=== PATIENT | male | born 1965 | race Caucasian/White ===

== ENCOUNTER 2017-12-20 17:37 | Inpatient (IN) | payer SELFPAY ==
[2017-12-20] MEDS ORDERED: Fentanyl 100 MCG/2 ML VIAL ONE (18:05)
[2017-12-20] MEDS ORDERED: Clindamycin/D5W 900 mg/50 ml Premix Bag ONE (18:05)
[2017-12-20] MEDS ORDERED: Vancomycin HCl 1.25 GM in Sodium Chloride 0.9% 250 ML 250 ML IVPB ONE (18:15)
[2017-12-20 18:26] LABS: CRP (Inflammatory) 4.22 mg/dL (= or < 0.5)
[2017-12-20] MEDS ORDERED: Adacel (T-DAP) 0.5 ML VIAL ONE (18:43)
[2017-12-20] MEDS ORDERED: Ondansetron ODT 4 MG TAB SL PRN (19:57)
[2017-12-20] MEDS ORDERED: Ondansetron HCl/PF 4 MG/2 ML Vial IVP PRN ×2 (19:57→20:13)
[2017-12-20] MEDS ORDERED: Acetaminophen 325 MG TAB PO PRN ×2 (19:57→20:13)
[2017-12-20] MEDS ORDERED: Piperacillin/Tazobactam 3.375 GM in Sodium Chloride 0.9% 100 ML IVPB SCH (20:00)
[2017-12-20] MEDS ORDERED: HumaLOG 300 UNITS/3 ML VIAL SC PRN (20:13)
[2017-12-20] MEDS ORDERED: Nitroglycerin 0.4 MG TAB (25 Tab Bottle) SL PRN (20:13)
[2017-12-20] MEDS ORDERED: traMADol HCl 50 MG TAB PO PRN (20:13)
[2017-12-20] MEDS ORDERED: Lorazepam 1 MG TAB PO PRN (20:13)
[2017-12-20] MEDS ORDERED: Bisacodyl 5 MG TAB PO PRN ×2 (20:13)
[2017-12-20] MEDS ORDERED: Diabetic Tussin 200 MG/10 ML UDCUP PO PRN (20:13)
[2017-12-20] MEDS ORDERED: Dextrose 5% in Water 1,000 ML IV PRN (20:13)
[2017-12-20] MEDS ORDERED: Benzonatate 100 MG CAP PO PRN (20:13)
[2017-12-20] MEDS ORDERED: Mag-Al 1200 mg/1200 mg/30 ML UDCUP PO PRN (20:13)
[2017-12-20] MEDS ORDERED: Loratadine 10 MG TAB PO PRN (20:13)
[2017-12-20] MEDS ORDERED: hydrALAZINE 20 MG/ML VIAL SLOW IVP PRN (20:13)
[2017-12-20] MEDS ORDERED: HYDROcodone/Acetaminophen 5/325 mg Tablet PO PRN (20:13)
[2017-12-20] MEDS ORDERED: Calcium Carbonate 500 MG ChewTAB PO PRN (20:13)
[2017-12-20] MEDS ORDERED: cloNIDine 0.1 MG TAB PO PRN (20:13)
[2017-12-20] MEDS ORDERED: Senokot 8.6 MG TAB PO PRN ×2 (20:13)
[2017-12-20] MEDS ORDERED: Dextrose 50% Abboject 50 ML SYRINGE SLOW IVP PRN (20:13)
[2017-12-20] MEDS ORDERED: VANCOMYCIN IV IVPB PRN (20:36)
[2017-12-20 20:40] LABS: Hemoglobin A1c 10.2 % (4.0-6.0)
[2017-12-20] MEDS ORDERED: Vancomycin HCl 1 GM in Premix Bag 1 BAG IVPB SCH (21:00)
[2017-12-20 21:09] VITALS: BMI 26.6
[2017-12-20] MEDS: Sodium Chloride 0.9% 1,000 ML IV SCH (21:15)
[2017-12-20] MEDS: Famotidine 20 MG TAB PO SCH (21:15)
[2017-12-20] MEDS: HYDROcodone/Acetaminophen 5/325 mg Tablet PO PRN (21:16)
[2017-12-20] MEDS: HumaLOG 300 UNITS/3 ML VIAL SC PRN (21:17)
--- NOTE | 2017-12-20 21:38 | HP ---
DATE OF ADMISSION: 12/20/2017 PRIMARY CARE PHYSICIAN: None. CHIEF COMPLAINT: Worsening infection of the right toe. HISTORY OF PRESENTING ILLNESS: Mr. Ibarra is a very pleasant 52-year-old male who was recently diagn osed with diabetes about 4-5 weeks ago and is on metformin, presented to the emergency room with abov e-mentioned complaint. History is mainly obtained by the patient himself and electronic medical aleksandr rds have been reviewed. Case has been discussed with the admitting ER physician, Dr. Strickland. Fred reports that about 5 weeks ago, he started to notice a small ulcer on his right foot on the si de and presented to an emergency room or Urgent Care in [place] where he used to recite. There, he was told that this looks like a diabetic ulcer and his blood sugars were checked and were found to be very high. He was diagnosed with new diagnosis of diabetes and was given prescription of metformin and Augmentin and was discharged. He did take the antibiotics and his wound healed up to some extent . Meanwhile, he moved from [place] to [facility] to enroll himself into a drug reha bilitation program of his friend in [place]. Over there, he ran out of metformin about 2 weeks ago. Meanwhile, he has been doing his local wound care himself by using a razor knife which he steri lizes with alcohol. He has been trying to scrape of the wound, but it instead got worse and he start ed to have significant amount of pain and discharge with associated swelling and erythema. This made him present to the [place] [facility]. In the [place] [facility], he was somewhat tachycardic with a heart rate of 113 and his blood pressure w as 148/81. He was found to have significant ulceration of his right big toe anteriorly and on the si de with streaking extending up his foot and his leg. He was given Zosyn and was transferred to our f acility. Here, he got vancomycin and clindamycin as well and an x-ray of the foot was done. The x-r ay showed soft tissue swelling without evidence of bone destruction. He is now being admitted for di abetic foot infection. His blood sugar in our facility is elevated to 339. His C-reactive protein i s 4.22, but his ESR is 48. PAST MEDICAL HISTORY: Diabetes mellitus, new diagnosis. 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 PSYCHIATRIC HISTORY: None. SOCIAL HISTORY: He is currently in a drug rehab program for cocaine and methamphetamine. He has use d it up about 7-1/2 weeks ago. He is a former tobacco user who used to chew tobacco. FAMILY HISTORY: Significant for diabetes in his mother. Both of his parents had cancer. Mother had breast cancer and his father young of bone cancer. Denies any history of coronary artery disea se or stroke in his family. ALLERGIES: SULFONAMIDE. MEDICATIONS: He used to take metformin until he ran out 2 weeks ago. REVIEW OF SYSTEMS: A 12 point review of systems was done and it is negative except for those mention ed in the history and physical. The following complete review of systems was negative, unless otherw ise mentioned in the HPI or below: Constitutional: Weight loss or gain, ability to conduct usual ac tivities. Skin: Rash, itching. Eyes: Double vision, pain. ENT/Mouth: Nose bleeding, neck stiffn ess, pain, tenderness. Cardiovascular: Palpitations, dyspnea on exertion, orthopnea. Respiratory: Shortness of breath, wheezing, cough, hemoptysis, fever or night sweats. Gastrointestinal: Poor ap petite, abdominal pain, heartburn, nausea, vomiting, constipation, or diarrhea. Genitourinary: Urge ncy, frequency, dysuria, nocturia. Musculoskeletal: Pain, swelling. Neurologic/Psychiatric: Anxie ty, depression. Allergy/Immunologic: Skin rash, bleeding tendency. LABORATORY DATA: Reviewed from those done in [facility]. His CBC shows WBCs 12.1, hemoglobin 1 1, platelets 422, neutrophils 76.9%. Serum chemistry shows sodium of 134 for a blood sugar of 339. CRP 4.22. Otherwise, serum chemistries are normal. Urinalysis shows glucosuria and trace blood. X- ray of the foot on the right by my evaluation shows soft tissue swelling in the right great toe witho ut any fracture or subluxation. PHYSICAL EXAMINATION: VITAL SIGNS: Upon presentation to the ER include blood pressure 148/81, pulse of 113, respirations 2 0, saturating 96% on room air, temperature 99.7. GENERAL: No acute distress, awake, alert, oriented x3, very pleasant. HEENT: Mucous membrane is moist and pink. No oropharyngeal exudate or erythema. Head is normocepha lic, atraumatic. Pupils are equal, reactive to light and accommodation. Extraocular movements are i ntact. NECK: Supple without any lymphadenopathy, JVD or bruit. CHEST: Clear to auscultation without any wheezing, rales or rhonchi. Rate and rhythm is regular wit hout any murmur, rubs or gallops. ABDOMEN: Soft, nontender, nondistended with positive bowel sounds. EXTREMITIES: Evaluation shows amputation of the left pointer finger. His lower extremity examinatio n shows significant amount of shallow ulceration involving the big toe on the right foot anteriorly a nd laterally with significant amount of purulent discharge. It is surrounded by streaking of erythem a and warmth extending up his foot lateral lead to his lower leg. His left lower extremity shows old injury to his big toe nail where he reports that his stepfather dropped a forklift by mistake. His toe is tender to palpation. SKIN: Erythematous above the right great toe, otherwise no rashes. NEUROLOGIC: Nonfocal. PSYCHIATRIC: Normal affect. He does appear somewhat anxious, but very pleasant. IMPRESSION AND PLAN: 1. Diabetic foot infection of the right foot. The patient will be continued on IV antibiotics with vancomycin and Zosyn. We will consult Wound care as well as General Surgery for more deeper incision and drainage. It does not seem that he has osteomyelitis at this time. We will obtain cultures at the time of wound care and send it to the lab. Blood cultures have been obtained in the emergency ro om. He will be n.p.o. after midnight in case General Surgery wants to do an incision and drainage. 2. Sepsis. The patient has elevated WBCs as well as elevated C-reactive protein and obvious infecti on of the toe. He will be treated with IV antibiotics and we will also start gentle IV fluids becaus e he will be n.p.o. after midnight for possible surgery in the morning. 3. Diet controlled diabetes mellitus. The patient has a new diagnosis of diabetes. He will be fatemeh faiza with insulin sliding scale while in the hospital and we will re-start his metformin. We will uriel ck a hemoglobin A1c and he will require PCP establishment at the time of his hospital discharge. Kenn itor his blood sugars a.c. and at bedtime for now. 4. History of drug abuse. The patient is currently in a drug rehab and would very much like to be t aken back to drug rehab after his hospitalization. 5. History of tobacco abuse, is abstinent for now. 6. Deep venous thrombosis and gastrointestinal prophylaxis. 7. Code status: FULL CODE. Discussed with the patient. DISPOSITION: Mr. Ibarra is currently being admitted for sepsis secondary to diabetic foot infection. Estimated length of stay is at least 2-3 midnights. Further management will depend upon his clinic al course.
[2017-12-21] MEDS: Piperacillin/Tazobactam 3.375 GM in Sodium Chloride 0.9% 100 ML IVPB SCH ×4 (00:18→15:43)
[2017-12-21] MEDS ORDERED: Clindamycin/D5W 900 MG in Premix Bag 1 BAG IVPB SCH (02:00)
[2017-12-21] MEDS: HYDROcodone/Acetaminophen 5/325 mg Tablet PO PRN ×4 (02:54→20:16)
[2017-12-21 04:48] LABS: #Basophils 0.1 thou/uL (0.0-0.2); #Eosinphils 0.1 thou/uL (0.0-0.7); #Lymphocytes 2.1 thou/uL (1.20-3.40); #Monocytes 0.6 thou/uL (0.11-0.59); #Neutrophils 4.2 thou/uL (1.40-6.50); %Basophils 0.9 % (0.0-1.0); %Lymphocytes 29.7 % (21.0-51.0); %Monocytes 8.6 % (0.0-10.0); %Neutrophils 58.8 % (42.0-75.0); Hemoglobin 9.5 g/dL (14.0-18.0); Mean Corpuscular HGB CONC 34.2 g/dL (32.0-36.0); Mean Corpuscular Hemoglobin 28.5 pg (27.0-31.0); Mean Corpuscular Volume 83.2 fl (80.0-94.0); Mean Platelet Volume 6.4 fL (7.4-10.4); Platelet Count 328 thou/uL (130-400); Red Blood Cell (RBC) Count 3.32 mill/uL (4.70-6.10); White Blood Cell (WBC) Count 7.2 thou/uL (4.8-10.8)
[2017-12-21 04:59] LABS: Anion Gap 9 mmol/L (10-20); BUN (Urea Nitrogen) 12 mg/dL (8.4-25.7); Calc. Creatinine Clearance 129 mL/min (70-130); Calcium 8.2 mg/dL (7.8-10.44); Carbon Dioxide 26 mmol/L (22-29); Chloride 106 mmol/L (98-107); Estimated GFR-MDRD Greater than 90; Glucose 303 mg/dL (70-105); Potassium 4.4 mmol/L (3.5-5.1); Sodium 137 mmol/L (136-145)
[2017-12-21] MEDS: Morphine 4 MG/ML VIAL SLOW IVP PRN ×5 (04:59→21:58)
[2017-12-21] MEDS: Vancomycin HCl 1.25 GM in Sodium Chloride 0.9% 250 ML 250 ML IVPB SCH ×2 (05:43→16:58)
[2017-12-21] MEDS: Enoxaparin Sodium 40 MG/0.4 ML SYRINGE SC SCH (07:20)
[2017-12-21] MEDS: Famotidine 20 MG TAB PO SCH ×2 (07:23→20:16)
[2017-12-21] MEDS: Saccharomyces boulardii 250 MG CAP PO SCH (07:24)
[2017-12-21] MEDS: Sodium Chloride 0.9% 1,000 ML IV SCH ×2 (07:26→20:18)
[2017-12-21] MEDS ORDERED: NPH, Human Insulin Isophane 300 UNIT/3 ML VIAL SC SCH (11:00)
--- NOTE | 2017-12-21 13:47 | CON ---
DATE OF CONSULTATION: 12/21/2017 CHIEF COMPLAINT: Right toe wound/infection. HISTORY OF PRESENT ILLNESS: Patient is a 52-year-old white male. He sustained an injury to his righ t great toe while he was working in [place]. He apparently went to an urgent care facility where he was initially diagnosed with diabetes. He was given a prescription for Augmentin and metformin at t hat time. Subsequently, he returned to home to where he lives [place] (near [place]). In some fa critical access hospital, he had begun using methamphetamine again, although he had been cleared from this for 4 years. He recently got admitted to a rehab facility in [place]. He presented to this hospital seconda ry to increasing problems related to his right great toe and left his drug rehabilitation program for this purpose. He did note he acknowledges having run out of his metformin 2 weeks ago and has not been on anything recently. He also tells me that he is the only one who has been caring for his toe. He had to cut s ome of the skin off parts of the toe. PAST MEDICAL HISTORY: Significant for diabetes mellitus. This is a new diagnosis and he has been on no medications for at least the last 2 weeks. His hemoglobin A1c here is 10.2 and his blood sugars have run between 303 and 370. PAST SURGICAL HISTORY: Amputation of left index finger from an accident about 13 years ago. CURRENT MEDICATIONS: None. ALLERGIES: SULFA. PERSONAL/SOCIAL HISTORY: He lives in [place]. He has had prior addiction issues with methamphetam ine. He is currently not employed secondary to his drug rehabilitation. PHYSICAL EXAMINATION: VITAL SIGNS: He is afebrile. He has been afebrile since admission. Pulse is 90, blood pressure is 138/80. GENERAL: He is a well-developed, well-nourished, pleasant white male resting in bed in no acute dist ress. He is alert and oriented x3. HEENT: Unremarkable. NECK: Supple, without mass or tenderness. LUNGS: Clear to auscultation throughout. CARDIAC: Regular rate and rhythm without murmur. ABDOMEN: Soft, nontender, nondistended. EXTREMITIES: He has easily palpable pedal pulses on his right foot. He has some mild edema and some very mild erythema of the foot. He has no ulcers or lesions anywhere on the foot except the great t oe. He has what appears to be an area of perhaps dry debrided area on the medial aspect. The entire dorsum of the toe from the base of the toe up to the nail is devitalized amorphous clearly necrotic tissue. It is white and necrotic, however. There is no foul smell or drainage. LABORATORY DATA: CBC reveals a hemoglobin of 9.5. White blood cell count of 7.2. Chemistry profile reveals normal electrolytes. Glucose elevated at 303. ASSESSMENT: Patient with a wound involving the dorsum of his right great toe. This is amorphous and devitalized tissue. PLAN: Sharp excisional debridement of this with continuation of wound care. He will need to avoid p utting this foot into a closed toe shoe until it is completely healed. This really does not appear t o be infected, but empiric antibiotics would not be harmful at this point. PROCEDURE: At his bedside, I sharply debrided (excised) with scissors all of the amorphous devitaliz ed tissue on the dorsum of the toe. There was no significant bleeding at all. I did not clearly dis sect out any tendons, but is close to the extensor tendons. There really was not much in the way of viable tissue underlying this. I will consult Wound Care at this time to initiate dressing changes o n this to see if this will heal with a course of supportive care.
[2017-12-21] MEDS: metFORMIN 500 MG TAB PO SCH (15:43)
[2017-12-21] MEDS: glipiZIDE 5 MG TAB PO SCH (15:43)
[2017-12-21] MEDS: NPH, Human Insulin Isophane 300 UNIT/3 ML VIAL SC SCH (20:57)
--- NOTE | 2017-12-21 23:24 | PDOC.PN ---
- Subjective Encounter Start Date: 12/21/17 Encounter Start Time: 14:00 Patient seen and examined for diabetic foot ulcer/uncontrolled DM2. No new complaints. No overnight events - Objective MAR Reviewed: Yes Vital Signs & Weight: Vital Signs (12 hours) Temp Pulse Resp BP BP Pulse Ox 12/21/17 20:00 98.1 F 90 20 145/81 H 98 12/21/17 16:28 97.8 F 88 16 130/74 97 Weight Weight 185 lb 4.8 oz I&O: 12/20/17 12/21/17 12/22/17 06:59 06:59 06:59 Intake Total 741 2700 Balance 741 2700 Result Diagrams: 12/21/17 04:06 12/21/17 04:06 Additional Labs: Accuchecks 12/21/17 12/21/17 12/21/17 20:55 16:25 11:20 POC Glucose 137 H 165 H 238 H 12/21/17 05:25 POC Glucose 318 H Phys Exam - Physical Examination Constitutional: NAD Respiratory: no wheezing, no rhonchi Cardiovascular: RRR, no rub Gastrointestinal: soft, non-tender, positive bowel sounds Musculoskeletal: no edema foot dressing + Neurological: moves all 4 limbs Dx/Plan (1) Diabetic foot infection Code(s): E11.628 - TYPE 2 DIABETES MELLITUS WITH OTHER SKIN COMPLICATIONS; L08.9 - LOCAL INFECTION OF THE SKIN AND SUBCUTANEOUS TISSUE, UNSP Status: Acute (2) Uncontrolled type 2 diabetes mellitus Code(s): E11.65 - TYPE 2 DIABETES MELLITUS WITH HYPERGLYCEMIA Status: Chronic (3) Polysubstance abuse Code(s): F19.10 - OTHER PSYCHOACTIVE SUBSTANCE ABUSE, UNCOMPLICATED Status: Chronic Comment: currently at Rehab (4) Chronic anemia Code(s): D64.9 - ANEMIA, UNSPECIFIED Status: Chronic - Plan continue antibiotics, DVT proph w/SCDs Cont wound care -: Add Glipizide/Metformin/Insulin with sliding scale -: Cont other meds as below Review of Systems - Review of Systems Cardiovascular: negative: chest pain, palpitations, orthopnea, paroxysmal nocturnal dyspnea, edema, light headedness, other Gastrointestinal: negative: Nausea, Vomiting, Abdominal Pain, Diarrhea, Constipation, Melena, Hematochezia, Other - Medications/Allergies Allergies/Adverse Reactions: Allergies Allergy/AdvReac Type Severity Reaction Status Date / Time Sulfa (Sulfonamide Allergy Verified 12/20/17 21:54 Antibiotics) Medications: Current Medications Acetaminophen (Tylenol) 650 mg PO Q4H PRN PRN Reason: Headache/Fever or Pain Hydrocodone Bitart/Acetaminophen (Hayes 5/325) 1 tab PO Q4H PRN PRN Reason: Moderate Pain (4-6) Hydrocodone Bitart/Acetaminophen (Hayes 5/325) 2 tab PO Q4H PRN PRN Reason: Severe Pain (7-10) Last Admin: 12/21/17 20:16 Dose: 2 tab Al Hydroxide/Mg Hydroxide (Maalox) 30 ml PO Q6H PRN PRN Reason: Heartburn or Indigestion Benzonatate (Tessalon) 100 mg PO Q4H PRN PRN Reason: Cough Bisacodyl (Dulcolax) 10 mg PO DAILYPRN PRN PRN Reason: Constipation Calcium Carbonate (Tums) 1,000 mg PO Q4H PRN PRN Reason: Heartburn or Indigestion Clonidine (Catapres) 0.1 mg PO Q4H PRN PRN Reason: Systolic BP > 160 Last Admin: 12/20/17 21:15 Dose: 0.1 mg Dextrose/Water (Dextrose 50%) 25 gm SLOW IVP PRN PRN PRN Reason: Hypoglycemia Enoxaparin Sodium (Lovenox) 40 mg SC 0900 [facility] Last Admin: 12/21/17 07:20 Dose: Not Given Famotidine (Pepcid) 20 mg PO BID [facility] Last Admin: 12/21/17 20:16 Dose: 20 mg Glipizide (Glucotrol) 5 mg PO BID-[facility] Last Admin: 12/21/17 15:43 Dose: 5 mg Glucagon (Glucagon) 1 mg IM PRN PRN PRN Reason: Hypoglycemia Guaifenesin (Robitussin Sf) 200 mg PO Q4H PRN PRN Reason: Cough Hydralazine HCl (Apresoline) 10 mg SLOW IVP Q4H PRN PRN Reason: Systolic BP > 170 Dextrose/Water (D5w) 1,000 mls @ 0 mls/hr IV .Q0M PRN; As Directed PRN Reason: Hypoglycemia Sodium Chloride (Normal Saline 0.9%) 1,000 mls @ 75 mls/hr IV .[id number] [facility] Last Admin: 12/21/17 20:18 Dose: 1,000 mls Piperacillin Sod/Tazobactam (Sod 3.375 gm/ Sodium Chloride) 100 mls @ 200 mls/ hr IVPB Q6HR [facility] Last Admin: 12/21/17 15:43 Dose: 100 mls Vancomycin HCl 1.25 gm/ Sodium (Chloride) 250 mls @ 166.667 mls/hr IVPB 0600, 1800 [facility] Last Admin: 12/21/17 16:58 Dose: 250 mls Insulin Human Lispro (Humalog) 0 units SC .MODERATE SLIDING SC PRN PRN Reason: Moderate Correctional Scale Insulin Human Lispro (Humalog) 0 units SC .BEDTIME SLIDING SC PRN PRN Reason: Bedtime Correctional Scale Last Admin: 12/20/17 21:17 Dose: 5 unit Insulin Human NPH (Humulin N) 10 unit SC BID [facility] Last Admin: 12/21/17 20:57 Dose: 10 unit Loratadine (Claritin) 10 mg PO DAILYPRN PRN PRN Reason: Sinus Symptoms Metformin HCl (Glucophage) 500 mg PO BID-[facility] Last Admin: 12/21/17 15:43 Dose: 500 mg Miscellaneous Medication (Pharmacy To Dose) 1 each IVPB PRN PRN PRN Reason: SSSI Morphine Sulfate (Morphine) 2 mg SLOW IVP Q4H PRN PRN Reason: Severe Pain (7-10) Last Admin: 12/21/17 21:58 Dose: 2 mg Nitroglycerin (Nitrostat) 0.4 mg SL Q5MIN PRN PRN Reason: Chest Pain Ondansetron HCl (Zofran) 4 mg IVP Q6H PRN PRN Reason: Nausea/Vomiting Saccharomyces Boulardii (Florastor) 250 mg PO DAILY [facility] Last Admin: 12/21/17 07:24 Dose: Not Given Senna (Senokot) 2 tab PO HSPRN PRN PRN Reason: Constipation Tramadol HCl (Ultram) 50 mg PO Q4H PRN PRN Reason: Moderate Pain (4-6) Last Admin: 12/21/17 15:46 Dose: 50 mg
[2017-12-22] MEDS: Piperacillin/Tazobactam 3.375 GM in Sodium Chloride 0.9% 100 ML IVPB SCH ×5 (00:21→23:58)
[2017-12-22] MEDS: HYDROcodone/Acetaminophen 5/325 mg Tablet PO PRN ×3 (02:07→21:41)
[2017-12-22 05:14] LABS: Vancomycin, Trough 9.5 ug/mL
[2017-12-22] MEDS: Vancomycin HCl 1.75 GM in Sodium Chloride 0.9% 500 ML IVPB SCH ×2 (06:26→18:34)
[2017-12-22] MEDS: Saccharomyces boulardii 250 MG CAP PO SCH (08:13)
[2017-12-22] MEDS: Famotidine 20 MG TAB PO SCH ×2 (08:13→20:15)
[2017-12-22] MEDS: glipiZIDE 5 MG TAB PO SCH ×2 (08:13→16:30)
[2017-12-22] MEDS: Enoxaparin Sodium 40 MG/0.4 ML SYRINGE SC SCH (08:13)
[2017-12-22] MEDS: metFORMIN 500 MG TAB PO SCH ×2 (08:14→16:30)
[2017-12-22] MEDS: NPH, Human Insulin Isophane 300 UNIT/3 ML VIAL SC SCH (08:15)
[2017-12-22] MEDS: Morphine 4 MG/ML VIAL SLOW IVP PRN ×2 (12:40→17:26)
--- NOTE | 2017-12-22 18:53 | PRG ---
DATE OF SERVICE: 12/22/2017 SUBJECTIVE: Mr. Ibarra is hospital day #3 in evaluation and treatment of his right great toe ulcer/i nfection. I debrided this ulcer yesterday and wound care perform dressing changes then. The patient has no complaints. He is afebrile. Vital signs are normal. Dressing is intact. LABORATORY DATA: There are no new labs. In summary, he is doing well with antibiotic treatment of his toe infection after debridement. I maureen l arrange with Wound Care Team to see his wound tomorrow. If this is making an appropriate progress, we will instruct him and wound care and we will arrange outpatient wound care, but I believe he will be stable for discharge then.
[2017-12-22] MEDS ORDERED: Ondansetron ODT 4 MG TAB PO PRN (20:55)
--- NOTE | 2017-12-22 22:49 | PDOC.PN ---
- Subjective Encounter Start Date: 12/22/17 Encounter Start Time: 11:00 Patient seen and examined for diabetic foot infection. No new complaints except Rt foot pain. No overnight events - Objective MAR Reviewed: Yes Vital Signs & Weight: Vital Signs (12 hours) Temp Pulse Resp BP Pulse Ox 12/22/17 20:19 98.6 F 94 18 133/88 12/22/17 11:10 98.2 F 88 20 172/98 H 95 Weight Admit Weight 185 lb 4.8 oz Weight 185 lb 4.8 oz I&O: 12/21/17 12/22/17 12/23/17 06:59 06:59 06:59 Intake Total 741 3840 720 Balance 741 3840 720 Result Diagrams: 12/23/17 03:52 12/23/17 03:52 Additional Labs: Accuchecks 12/22/17 12/22/17 12/22/17 20:35 16:35 11:15 POC Glucose 120 H 125 H 129 H 12/22/17 04:02 POC Glucose 123 H Phys Exam - Physical Examination Constitutional: NAD Respiratory: no wheezing, no rhonchi Cardiovascular: RRR, no rub Gastrointestinal: soft, non-tender, positive bowel sounds Musculoskeletal: no edema Rt foot dressing + Neurological: moves all 4 limbs Dx/Plan (1) Diabetic foot infection Code(s): E11.628 - TYPE 2 DIABETES MELLITUS WITH OTHER SKIN COMPLICATIONS; L08.9 - LOCAL INFECTION OF THE SKIN AND SUBCUTANEOUS TISSUE, UNSP Status: Acute (2) Uncontrolled type 2 diabetes mellitus Code(s): E11.65 - TYPE 2 DIABETES MELLITUS WITH HYPERGLYCEMIA Status: Chronic (3) Polysubstance abuse Code(s): F19.10 - OTHER PSYCHOACTIVE SUBSTANCE ABUSE, UNCOMPLICATED Status: Chronic Comment: currently at Rehab (4) Chronic anemia Code(s): D64.9 - ANEMIA, UNSPECIFIED Status: Chronic - Plan continue antibiotics, out of bed/ambulate, DVT proph w/SCDs Cont wound care -: Pain control -: DC NPH -: Cont Glipizide with Metformin Review of Systems - Review of Systems Respiratory: negative: Cough, Dry, Shortness of Breath, Hemoptysis, SOB with Excertion, Pleuritic Pain, Sputum, Wheezing Cardiovascular: negative: chest pain, palpitations, orthopnea, paroxysmal nocturnal dyspnea, edema, light headedness, other - Medications/Allergies Allergies/Adverse Reactions: Allergies Allergy/AdvReac Type Severity Reaction Status Date / Time Sulfa (Sulfonamide Allergy Verified 12/20/17 21:54 Antibiotics) Medications: Current Medications Acetaminophen (Tylenol) 650 mg PO Q4H PRN PRN Reason: Headache/Fever or Pain Hydrocodone Bitart/Acetaminophen (Thatcher 5/325) 1 tab PO Q4H PRN PRN Reason: Moderate Pain (4-6) Hydrocodone Bitart/Acetaminophen (Thatcher 5/325) 2 tab PO Q4H PRN PRN Reason: Severe Pain (7-10) Last Admin: 12/22/17 21:41 Dose: 2 tab Al Hydroxide/Mg Hydroxide (Maalox) 30 ml PO Q6H PRN PRN Reason: Heartburn or Indigestion Benzonatate (Tessalon) 100 mg PO Q4H PRN PRN Reason: Cough Bisacodyl (Dulcolax) 10 mg PO DAILYPRN PRN PRN Reason: Constipation Calcium Carbonate (Tums) 1,000 mg PO Q4H PRN PRN Reason: Heartburn or Indigestion Clonidine (Catapres) 0.1 mg PO Q4H PRN PRN Reason: Systolic BP > 160 Last Admin: 12/20/17 21:15 Dose: 0.1 mg Dextrose/Water (Dextrose 50%) 25 gm SLOW IVP PRN PRN PRN Reason: Hypoglycemia Famotidine (Pepcid) 20 mg PO BID [facility] Last Admin: 12/22/17 20:15 Dose: 20 mg Glipizide (Glucotrol) 5 mg PO BID-[facility] Last Admin: 12/22/17 16:30 Dose: 5 mg Glucagon (Glucagon) 1 mg IM PRN PRN PRN Reason: Hypoglycemia Guaifenesin (Robitussin Sf) 200 mg PO Q4H PRN PRN Reason: Cough Hydralazine HCl (Apresoline) 10 mg SLOW IVP Q4H PRN PRN Reason: Systolic BP > 170 Dextrose/Water (D5w) 1,000 mls @ 0 mls/hr IV .Q0M PRN; As Directed PRN Reason: Hypoglycemia Piperacillin Sod/Tazobactam (Sod 3.375 gm/ Sodium Chloride) 100 mls @ 200 mls/ hr IVPB Q6HR [facility] Last Admin: 12/22/17 17:20 Dose: 100 mls Vancomycin HCl 1.75 gm/ Sodium (Chloride) 500 mls @ 250 mls/hr IVPB 0600,1800 [facility] Last Admin: 12/22/17 18:34 Dose: 500 mls Insulin Human Lispro (Humalog) 0 units SC .MODERATE SLIDING SC PRN PRN Reason: Moderate Correctional Scale Insulin Human Lispro (Humalog) 0 units SC .BEDTIME SLIDING SC PRN PRN Reason: Bedtime Correctional Scale Last Admin: 12/20/17 21:17 Dose: 5 unit Loratadine (Claritin) 10 mg PO DAILYPRN PRN PRN Reason: Sinus Symptoms Metformin HCl (Glucophage) 500 mg PO BID-[facility] Last Admin: 12/22/17 16:30 Dose: 500 mg Miscellaneous Medication (Pharmacy To Dose) 1 each IVPB PRN PRN PRN Reason: SSSI Morphine Sulfate (Morphine) 2 mg SLOW IVP Q4H PRN PRN Reason: Severe Pain (7-10) Last Admin: 12/22/17 17:26 Dose: 2 mg Nitroglycerin (Nitrostat) 0.4 mg SL Q5MIN PRN PRN Reason: Chest Pain Ondansetron HCl (Zofran) 4 mg IVP Q6H PRN PRN Reason: Nausea/Vomiting Ondansetron HCl (Zofran Odt) 4 mg PO Q6H PRN PRN Reason: Nausea/Vomiting Last Admin: 12/22/17 21:07 Dose: 4 mg Saccharomyces Boulardii (Florastor) 250 mg PO DAILY [facility] Last Admin: 12/22/17 08:13 Dose: 250 mg Senna (Senokot) 2 tab PO HSPRN PRN PRN Reason: Constipation Tramadol HCl (Ultram) 50 mg PO Q4H PRN PRN Reason: Moderate Pain (4-6) Last Admin: 12/21/17 15:46 Dose: 50 mg
[2017-12-23 04:20] LABS: #Basophils 0.1 thou/uL (0.0-0.2); #Eosinphils 0.2 thou/uL (0.0-0.7); #Lymphocytes 2.1 thou/uL (1.20-3.40); #Monocytes 0.5 thou/uL (0.11-0.59); #Neutrophils 3.4 thou/uL (1.40-6.50); %Eosinophils 2.6 % (0.0-10.0); %Lymphocytes 33.1 % (21.0-51.0); %Monocytes 8.2 % (0.0-10.0); %Neutrophils 55.1 % (42.0-75.0); Hemoglobin 10.5 g/dL (14.0-18.0); Mean Corpuscular HGB CONC 35.5 g/dL (32.0-36.0); Mean Corpuscular Hemoglobin 29.4 pg (27.0-31.0); Mean Corpuscular Volume 82.7 fl (80.0-94.0); Mean Platelet Volume 6.3 fL (7.4-10.4); Platelet Count 372 thou/uL (130-400); Red Blood Cell (RBC) Count 3.58 mill/uL (4.70-6.10); White Blood Cell (WBC) Count 6.2 thou/uL (4.8-10.8)
[2017-12-23 04:37] LABS: Anion Gap 11 mmol/L (10-20); BUN (Urea Nitrogen) 7 mg/dL (8.4-25.7); Calc. Creatinine Clearance 124 mL/min (70-130); Calcium 8.8 mg/dL (7.8-10.44); Carbon Dioxide 27 mmol/L (22-29); Chloride 104 mmol/L (98-107); Estimated GFR-MDRD Greater than 90; Glucose 211 mg/dL (70-105); Potassium 4.1 mmol/L (3.5-5.1); Sodium 138 mmol/L (136-145)
[2017-12-23] MEDS: Piperacillin/Tazobactam 3.375 GM in Sodium Chloride 0.9% 100 ML IVPB SCH ×4 (05:05→23:32)
[2017-12-23] MEDS: HYDROcodone/Acetaminophen 5/325 mg Tablet PO PRN ×3 (05:57→23:30)
[2017-12-23] MEDS: Vancomycin HCl 1.75 GM in Sodium Chloride 0.9% 500 ML IVPB SCH ×2 (06:07→22:33)
[2017-12-23] MEDS: Famotidine 20 MG TAB PO SCH ×2 (08:41→23:30)
[2017-12-23] MEDS: metFORMIN 500 MG TAB PO SCH ×2 (08:41→18:03)
[2017-12-23] MEDS: Saccharomyces boulardii 250 MG CAP PO SCH (08:41)
[2017-12-23] MEDS: glipiZIDE 5 MG TAB PO SCH ×2 (08:41→18:02)
[2017-12-23] MEDS ORDERED: Lidocaine 1% PF 5 ML VIAL ONE (13:50)
[2017-12-23] MEDS ORDERED: diphenhydrAMINE 50 MG/ML VIAL ONE (13:50)
[2017-12-23] MEDS ORDERED: Dexamethasone 20 MG/5 ML VIAL ONE (13:50)
[2017-12-23] MEDS ORDERED: PROPOFOL 200 MG/20 ML VIAL ONE (13:50)
[2017-12-23] MEDS ORDERED: PHENYLEPHRINE-NS 100 MCG/ML 10 ML SYRINGE ONE (13:50)
[2017-12-23] MEDS ORDERED: Ketorolac Tromethamine 30 MG/ML VIAL ONE (13:50)
--- NOTE | 2017-12-23 18:16 | PDOC.PN ---
- Subjective Encounter Start Date: 12/23/17 Encounter Start Time: 14:00 Patient seen and examined for diabetic foot infection. No new complaints. No overnight events - Objective MAR Reviewed: Yes Vital Signs & Weight: Vital Signs (12 hours) Temp Pulse Resp BP Pulse Ox 12/23/17 11:29 98.4 F 91 18 132/79 94 L 12/23/17 07:32 98.0 F 83 18 128/76 96 12/23/17 07:25 98.0 F 83 18 96 Weight Admit Weight 185 lb 4.8 oz Weight 185 lb 4.8 oz I&O: 12/22/17 12/23/17 12/24/17 06:59 06:59 06:59 Intake Total 3840 1720 420 Balance 3840 1720 420 Result Diagrams: 12/23/17 03:52 12/23/17 03:52 Additional Labs: Accuchecks 12/23/17 12/23/17 12/22/17 11:55 06:37 20:35 POC Glucose 157 H 171 H 120 H Phys Exam - Physical Examination Constitutional: NAD Respiratory: no wheezing, no rhonchi Cardiovascular: RRR, no rub Gastrointestinal: soft, non-tender, positive bowel sounds Musculoskeletal: no edema Rt foot dressing + Psychiatric: A&O x 3 Dx/Plan (1) Diabetic foot infection Code(s): E11.628 - TYPE 2 DIABETES MELLITUS WITH OTHER SKIN COMPLICATIONS; L08.9 - LOCAL INFECTION OF THE SKIN AND SUBCUTANEOUS TISSUE, UNSP Status: Acute (2) Uncontrolled type 2 diabetes mellitus Code(s): E11.65 - TYPE 2 DIABETES MELLITUS WITH HYPERGLYCEMIA Status: Chronic (3) Polysubstance abuse Code(s): F19.10 - OTHER PSYCHOACTIVE SUBSTANCE ABUSE, UNCOMPLICATED Status: Chronic Comment: currently at Rehab (4) Chronic anemia Code(s): D64.9 - ANEMIA, UNSPECIFIED Status: Chronic - Plan cont current plan of care, DVT proph w/SCDs Cont Atbx -: Surgical intervention today -: Hold NPH due to NPO status -: Cont Glipizide/Metformin -: Cont to monitor Review of Systems - Review of Systems Respiratory: negative: Cough, Dry, Shortness of Breath, Hemoptysis, SOB with Excertion, Pleuritic Pain, Sputum, Wheezing Cardiovascular: negative: chest pain, palpitations, orthopnea, paroxysmal nocturnal dyspnea, edema, light headedness, other - Medications/Allergies Allergies/Adverse Reactions: Allergies Allergy/AdvReac Type Severity Reaction Status Date / Time Sulfa (Sulfonamide Allergy Verified 12/20/17 21:54 Antibiotics) Medications: Current Medications Acetaminophen (Tylenol) 650 mg PO Q4H PRN PRN Reason: Headache/Fever or Pain Hydrocodone Bitart/Acetaminophen ([place] 5/325) 1 tab PO Q4H PRN PRN Reason: Moderate Pain (4-6) Hydrocodone Bitart/Acetaminophen ([place] 5/325) 2 tab PO Q4H PRN PRN Reason: Severe Pain (7-10) Last Admin: 12/23/17 10:01 Dose: 2 tab Al Hydroxide/Mg Hydroxide (Maalox) 30 ml PO Q6H PRN PRN Reason: Heartburn or Indigestion Benzonatate (Tessalon) 100 mg PO Q4H PRN PRN Reason: Cough Bisacodyl (Dulcolax) 10 mg PO DAILYPRN PRN PRN Reason: Constipation Calcium Carbonate (Tums) 1,000 mg PO Q4H PRN PRN Reason: Heartburn or Indigestion Clonidine (Catapres) 0.1 mg PO Q4H PRN PRN Reason: Systolic BP > 160 Last Admin: 12/20/17 21:15 Dose: 0.1 mg Dextrose/Water (Dextrose 50%) 25 gm SLOW IVP PRN PRN PRN Reason: Hypoglycemia Famotidine (Pepcid) 20 mg PO BID [facility] Last Admin: 12/23/17 08:41 Dose: 20 mg Glipizide (Glucotrol) 5 mg PO BID-[facility] Last Admin: 12/23/17 18:02 Dose: Not Given Glucagon (Glucagon) 1 mg IM PRN PRN PRN Reason: Hypoglycemia Guaifenesin (Robitussin Sf) 200 mg PO Q4H PRN PRN Reason: Cough Hydralazine HCl (Apresoline) 10 mg SLOW IVP Q4H PRN PRN Reason: Systolic BP > 170 Dextrose/Water (D5w) 1,000 mls @ 0 mls/hr IV .Q0M PRN; As Directed PRN Reason: Hypoglycemia Piperacillin Sod/Tazobactam (Sod 3.375 gm/ Sodium Chloride) 100 mls @ 200 mls/ hr IVPB Q6HR [facility] Last Admin: 12/23/17 12:03 Dose: 100 mls Vancomycin HCl 1.75 gm/ Sodium (Chloride) 500 mls @ 250 mls/hr IVPB 0600,1800 [facility] Last Admin: 12/23/17 06:07 Dose: 500 mls Insulin Human Lispro (Humalog) 0 units SC .MODERATE SLIDING SC PRN PRN Reason: Moderate Correctional Scale Insulin Human Lispro (Humalog) 0 units SC .BEDTIME SLIDING SC PRN PRN Reason: Bedtime Correctional Scale Last Admin: 12/20/17 21:17 Dose: 5 unit Loratadine (Claritin) 10 mg PO DAILYPRN PRN PRN Reason: Sinus Symptoms Metformin HCl (Glucophage) 500 mg PO BID-[facility] Last Admin: 12/23/17 18:03 Dose: Not Given Miscellaneous Medication (Pharmacy To Dose) 1 each IVPB PRN PRN PRN Reason: SSSI Morphine Sulfate (Morphine) 2 mg SLOW IVP Q4H PRN PRN Reason: Severe Pain (7-10) Last Admin: 12/22/17 17:26 Dose: 2 mg Nitroglycerin (Nitrostat) 0.4 mg SL Q5MIN PRN PRN Reason: Chest Pain Ondansetron HCl (Zofran) 4 mg IVP Q6H PRN PRN Reason: Nausea/Vomiting Ondansetron HCl (Zofran Odt) 4 mg PO Q6H PRN PRN Reason: Nausea/Vomiting Last Admin: 12/22/17 21:07 Dose: 4 mg Saccharomyces Boulardii (Florastor) 250 mg PO DAILY [facility] Last Admin: 12/23/17 08:41 Dose: 250 mg Senna (Senokot) 2 tab PO HSPRN PRN PRN Reason: Constipation Tramadol HCl (Ultram) 50 mg PO Q4H PRN PRN Reason: Moderate Pain (4-6) Last Admin: 12/21/17 15:46 Dose: 50 mg
[2017-12-23] MEDS ORDERED: Fentanyl 100 MCG/2 ML VIAL ONE (19:31)
[2017-12-23] MEDS ORDERED: Midazolam HCl 2 mg/2 ml Vial ONE (19:31)
[2017-12-23] MEDS ORDERED: Bupivacaine/Epinephrine 0.25% 30 ML VIAL ONE (19:31)
[2017-12-23] MEDS ORDERED: Fentanyl 250 MCG/5 ML VIAL ONE (19:39)
[2017-12-23] MEDS ORDERED: Promethazine HCl 25 MG/ML VIAL SLOW IVP PRN (21:38)
[2017-12-23] MEDS ORDERED: Ondansetron HCl/PF 4 MG/2 ML Vial IVP PRN (21:38)
[2017-12-23] MEDS ORDERED: Promethazine HCl 25 MG/ML VIAL IM PRN (21:38)
[2017-12-23] MEDS ORDERED: Meperidine HCl/PF 25 MG/ML VIAL SLOW IVP PRN (21:38)
[2017-12-23] MEDS ORDERED: Morphine 4 MG/ML VIAL SLOW IVP PRN (21:46)
[2017-12-23] MEDS: HumaLOG 300 UNITS/3 ML VIAL SC PRN (23:31)
[2017-12-24] MEDS: HYDROcodone/Acetaminophen 5/325 mg Tablet PO PRN ×3 (04:46→15:05)
[2017-12-24] MEDS: Piperacillin/Tazobactam 3.375 GM in Sodium Chloride 0.9% 100 ML IVPB SCH ×3 (05:27→17:08)
[2017-12-24 05:36] LABS: Vancomycin, Trough 21.5 ug/mL
[2017-12-24] MEDS: Vancomycin HCl 1.5 GM in Sodium Chloride 0.9% 250 ML 300 ML IVPB SCH ×2 (06:05→17:55)
[2017-12-24] MEDS: Famotidine 20 MG TAB PO SCH ×2 (08:15→19:52)
[2017-12-24] MEDS: Saccharomyces boulardii 250 MG CAP PO SCH (08:15)
[2017-12-24] MEDS: metFORMIN 500 MG TAB PO SCH ×2 (08:15→16:18)
[2017-12-24] MEDS: glipiZIDE 5 MG TAB PO SCH ×2 (08:15→16:18)
[2017-12-24] MEDS ORDERED: NPH, Human Insulin Isophane 300 UNIT/3 ML VIAL SC SCH (09:30)
[2017-12-24] MEDS: HumaLOG 300 UNITS/3 ML VIAL SC PRN ×2 (11:14→20:06)
[2017-12-24] MEDS: Insulin NPH/Reg Insulin Hm 300 UNITS/3 ML VIAL SC SCH (17:08)
--- NOTE | 2017-12-24 19:01 | PDOC.PN ---
- Subjective Encounter Start Date: 12/24/17 Encounter Start Time: 18:59 Patient seen and examined for foot infection. No new complaints. No overnight events - Objective MAR Reviewed: Yes Vital Signs & Weight: Vital Signs (12 hours) Temp Pulse Resp BP Pulse Ox 12/24/17 08:00 98.2 F 87 18 12/24/17 07:35 98.2 F 87 18 113/73 96 Weight Admit Weight 185 lb 4.8 oz Weight 185 lb 4.8 oz I&O: 12/23/17 12/24/17 12/25/17 06:59 06:59 06:59 Intake Total 1720 1470 Output Total 650 Balance 1720 820 Result Diagrams: 12/23/17 03:52 12/23/17 03:52 Additional Labs: Accuchecks 12/24/17 12/24/17 12/24/17 16:20 11:15 10:04 POC Glucose 353 H 351 H 356 H 12/24/17 12/23/17 04:21 23:19 POC Glucose 364 H 346 H Phys Exam - Physical Examination Constitutional: NAD Respiratory: no wheezing, no rhonchi Cardiovascular: RRR, no rub Gastrointestinal: soft, non-tender, positive bowel sounds Musculoskeletal: no edema Rt foot dressing + Dx/Plan (1) Diabetic foot infection Code(s): E11.628 - TYPE 2 DIABETES MELLITUS WITH OTHER SKIN COMPLICATIONS; L08.9 - LOCAL INFECTION OF THE SKIN AND SUBCUTANEOUS TISSUE, UNSP Status: Acute Comment: s/p Rt great toe amputation 12/23, Wound care following, On Atbx , (2) Uncontrolled type 2 diabetes mellitus Code(s): E11.65 - TYPE 2 DIABETES MELLITUS WITH HYPERGLYCEMIA Status: Chronic Plan: Add 70/30 15 units BID, Cont Metformin and Glipizide, Glucose check ACHS (3) Polysubstance abuse Code(s): F19.10 - OTHER PSYCHOACTIVE SUBSTANCE ABUSE, UNCOMPLICATED Status: Chronic Comment: currently at Rehab (4) Chronic anemia Code(s): D64.9 - ANEMIA, UNSPECIFIED Status: Chronic - Plan DVT proph w/SCDs Review of Systems - Review of Systems Cardiovascular: negative: chest pain, palpitations, orthopnea, paroxysmal nocturnal dyspnea, edema, light headedness, other Gastrointestinal: negative: Nausea, Vomiting, Abdominal Pain, Diarrhea, Constipation, Melena, Hematochezia, Other - Medications/Allergies Allergies/Adverse Reactions: Allergies Allergy/AdvReac Type Severity Reaction Status Date / Time Sulfa (Sulfonamide Allergy Verified 12/20/17 21:54 Antibiotics) Medications: Current Medications Acetaminophen (Tylenol) 650 mg PO Q4H PRN PRN Reason: Headache/Fever or Pain Hydrocodone Bitart/Acetaminophen ([place] 5/325) 1 tab PO Q4H PRN PRN Reason: Moderate Pain (4-6) Hydrocodone Bitart/Acetaminophen ([place] 5/325) 2 tab PO Q4H PRN PRN Reason: Severe Pain (7-10) Last Admin: 12/24/17 15:05 Dose: 2 tab Al Hydroxide/Mg Hydroxide (Maalox) 30 ml PO Q6H PRN PRN Reason: Heartburn or Indigestion Benzonatate (Tessalon) 100 mg PO Q4H PRN PRN Reason: Cough Bisacodyl (Dulcolax) 10 mg PO DAILYPRN PRN PRN Reason: Constipation Calcium Carbonate (Tums) 1,000 mg PO Q4H PRN PRN Reason: Heartburn or Indigestion Clonidine (Catapres) 0.1 mg PO Q4H PRN PRN Reason: Systolic BP > 160 Last Admin: 12/20/17 21:15 Dose: 0.1 mg Dextrose/Water (Dextrose 50%) 25 gm SLOW IVP PRN PRN PRN Reason: Hypoglycemia Famotidine (Pepcid) 20 mg PO BID [facility] Last Admin: 12/24/17 08:15 Dose: 20 mg Glipizide (Glucotrol) 5 mg PO BID-[facility] Last Admin: 12/24/17 16:18 Dose: 5 mg Glucagon (Glucagon) 1 mg IM PRN PRN PRN Reason: Hypoglycemia Guaifenesin (Robitussin Sf) 200 mg PO Q4H PRN PRN Reason: Cough Hydralazine HCl (Apresoline) 10 mg SLOW IVP Q4H PRN PRN Reason: Systolic BP > 170 Dextrose/Water (D5w) 1,000 mls @ 0 mls/hr IV .Q0M PRN; As Directed PRN Reason: Hypoglycemia Piperacillin Sod/Tazobactam (Sod 3.375 gm/ Sodium Chloride) 100 mls @ 200 mls/ hr IVPB Q6HR [facility] Last Admin: 12/24/17 17:08 Dose: 100 mls Vancomycin HCl 1.5 gm/ Sodium (Chloride) 300 mls @ 150 mls/hr IVPB 0600,1800 [facility] Last Admin: 12/24/17 17:55 Dose: 300 mls Insulin Human Isoph/Insulin Regular (Humulin 70/30) 15 units SC BID-[facility] Last Admin: 12/24/17 17:08 Dose: 15 units Insulin Human Lispro (Humalog) 0 units SC .BEDTIME SLIDING SC PRN PRN Reason: Bedtime Correctional Scale Last Admin: 12/23/17 23:31 Dose: 4 unit Insulin Human Lispro (Humalog) 0 units SC .MILD SLIDING SCALE PRN PRN Reason: Mild Correctional Scale Last Admin: 12/24/17 11:14 Dose: 6 unit Loratadine (Claritin) 10 mg PO DAILYPRN PRN PRN Reason: Sinus Symptoms Metformin HCl (Glucophage) 500 mg PO BID-[facility] Last Admin: 12/24/17 16:18 Dose: 500 mg Miscellaneous Medication (Pharmacy To Dose) 1 each IVPB PRN PRN PRN Reason: SSSI Morphine Sulfate (Morphine) 4 mg SLOW IVP Q2H PRN PRN Reason: Pain 7-10 Last Admin: 12/24/17 11:29 Dose: 4 mg Nitroglycerin (Nitrostat) 0.4 mg SL Q5MIN PRN PRN Reason: Chest Pain Ondansetron HCl (Zofran) 4 mg IVP Q6H PRN PRN Reason: Nausea/Vomiting Ondansetron HCl (Zofran Odt) 4 mg PO Q6H PRN PRN Reason: Nausea/Vomiting Last Admin: 12/22/17 21:07 Dose: 4 mg Saccharomyces Boulardii (Florastor) 250 mg PO DAILY [facility] Last Admin: 12/24/17 08:15 Dose: 250 mg Senna (Senokot) 2 tab PO HSPRN PRN PRN Reason: Constipation Sodium Chloride (Flush - Normal Saline) 10 ml IVF Q12HR [facility] Sodium Chloride (Flush - Normal Saline) 10 ml IVF PRN PRN PRN Reason: Saline Flush Tramadol HCl (Ultram) 50 mg PO Q4H PRN PRN Reason: Moderate Pain (4-6) Last Admin: 12/21/17 15:46 Dose: 50 mg
--- NOTE | 2017-12-24 20:53 | PRG ---
DATE OF SERVICE: 12/24/2017 SUBJECTIVE: Mr. Ibarra is postoperative day #1 from a right great toe ray amputation. His wound was closed at the time of surgery. He still has his dressing intact. He notes minimal discomfort. He has ambulated minimally with heel weightbearing only. OBJECTIVE: VITAL SIGNS: He is afebrile, pulse is 87, blood pressure 113/73. Examination is limited to his foot which still has a dressing intact on it. LABORATORY STUDIES: Repeat labs were not obtained, but his sugar levels are still quite high. ASSESSMENT: The patient seems to be doing well following amputation of right great toe. Cultures ob tained from the joint space that was exposed are still pending. He remains on vancomycin and Zosyn a t this time. PLAN: My plan would be to change his dressing tomorrow to check the amputation site and instructed h im in wound care. I will plan on seeing him back in my office in a couple of weeks. I believe it wo uld be safe for discharge tomorrow with oral antibiotics. Assuming the wound looks acceptable.
[2017-12-25] MEDS: Piperacillin/Tazobactam 3.375 GM in Sodium Chloride 0.9% 100 ML IVPB SCH ×3 (00:13→11:06)
[2017-12-25] MEDS: HYDROcodone/Acetaminophen 5/325 mg Tablet PO PRN ×4 (00:13→11:27)
[2017-12-25 04:40] LABS: #Eosinphils 0.1 thou/uL (0.0-0.7); #Monocytes 0.8 thou/uL (0.11-0.59); #Neutrophils 7.5 thou/uL (1.40-6.50); %Basophils 0.3 % (0.0-1.0); %Eosinophils 0.7 % (0.0-10.0); %Lymphocytes 19.2 % (21.0-51.0); %Monocytes 7.5 % (0.0-10.0); %Neutrophils 72.4 % (42.0-75.0); Hemoglobin 10.1 g/dL (14.0-18.0); Mean Corpuscular HGB CONC 33.8 g/dL (32.0-36.0); Mean Corpuscular Hemoglobin 27.9 pg (27.0-31.0); Mean Corpuscular Volume 82.5 fl (80.0-94.0); Mean Platelet Volume 6.4 fL (7.4-10.4); Platelet Count 398 thou/uL (130-400); Red Blood Cell (RBC) Count 3.63 mill/uL (4.70-6.10); White Blood Cell (WBC) Count 10.4 thou/uL (4.8-10.8)
[2017-12-25 04:55] LABS: Anion Gap 13 mmol/L (10-20); BUN (Urea Nitrogen) 13 mg/dL (8.4-25.7); Calc. Creatinine Clearance 85 mL/min (70-130); Calcium 8.4 mg/dL (7.8-10.44); Carbon Dioxide 25 mmol/L (22-29); Chloride 100 mmol/L (98-107); Estimated GFR-MDRD 63; Glucose 243 mg/dL (70-105); Potassium 3.8 mmol/L (3.5-5.1); Sodium 134 mmol/L (136-145)
[2017-12-25] MEDS: Vancomycin HCl 1.5 GM in Sodium Chloride 0.9% 250 ML 300 ML IVPB SCH (05:18)
[2017-12-25] MEDS: Famotidine 20 MG TAB PO SCH (07:54)
[2017-12-25] MEDS: glipiZIDE 5 MG TAB PO SCH (07:54)
[2017-12-25] MEDS: metFORMIN 500 MG TAB PO SCH (07:54)
[2017-12-25] MEDS: Saccharomyces boulardii 250 MG CAP PO SCH (07:54)
[2017-12-25] MEDS: Insulin NPH/Reg Insulin Hm 300 UNITS/3 ML VIAL SC SCH (07:57)
[2017-12-25 08:11] VITALS: BP 145/84; TEMP 98.3
--- NOTE | 2017-12-25 17:49 | DIS ---
DATE OF DISCHARGE: 12/25/2017 DISCHARGE DISPOSITION: Home. FOLLOWUP: Follow up with primary care physician at [facility] in [address] week[address] Follow up with Dr Yanelis Contreras as scheduled. ALLERGIES: The patient is allergic to SULFA. The patient was seen and examined on the day of discharge. Denies any new complaints. No chest pain , shortness of breath, palpitations. DISCHARGE MEDICATIONS: 1. Tylenol as needed. 2. Ibuprofen as needed. 3. Keflex 500 mg three times daily for 10 days. 4. Glipizide 10 mg daily. 5. Metformin 1000 mg twice a day. 6. Doxycycline twice a day for 10 days. Please note that the patient declined insulin. He also requested most of his medications to be in [employer] 4-dollar list. BRIEF HOSPITAL COURSE: The patient is a 52-year-old male with diabetes mellitus type 2, presented to the hospital with swelling of the right first great toe. His workup was consistent with diabetic fo ot infection requiring IV antibiotics. The patient was evaluated by General Surgery, Dr. Contreras. H e failed conservative measures. On 12/23/2017, the patient underwent right great toe ray amputation. The patient was evaluated by Dr. Contreras today. His wound looks okay. He has been cleared by [facility] for discharge. Plan of care was discussed with the patient in detail. He stated underst anding. FINAL DIAGNOSES: 1. Diabetic foot infection of the right first great toe, status post ray amputation. 2. Uncontrolled diabetes mellitus type 2. The patient has been started on glipizide and metformin. Please note that he declined insulin. He has a glucose monitor and will follow up with his PCP. 3. History of polysubstance abuse. The patient is currently in rehabilitation. 4. Chronic anemia. 5. Mild hyponatremia. Plan of care was discussed with the patient in detail. He stated understanding.
--- NOTE | 2017-12-26 13:04 | OP ---
DATE OF PROCEDURE: 12/23/2017 PREOPERATIVE DIAGNOSES: Diabetic foot infection of the right great toe with infection invasive of th e interphalangeal joint. DISCHARGE DIAGNOSES: Diabetic foot infection of right great toe with infection invasive of the int erphalangeal joint. OPERATION PERFORMED: Right great toe ray amputation with primary closure. SURGEON: Petr Contreras M.D. ANESTHESIA: General with laryngeal mask airway. INDICATIONS: The patient is a 52-year-old male. He is a recently diagnosed diabetic. He developed a full thickness area of necrosis on the dorsal aspect of his great toe. He presented initially with cellulitis, evidence of infection. This was debrided over the course of a couple of days and on the day of his surgery a gentle debridement revealed that there was an open exposed interphalangeal join t. At this point, it was clear that the toe would not be salvageable. He was taken to the operating room at this time for amputation. OPERATIVE PROCEDURE IN DETAIL: Informed consent was obtained. The patient was taken to the operatin g room where general anesthesia obtained with the patient in supine position. Right foot was prepped with ChloraPrep and draped in sterile fashion. Local anesthetic was infiltrated proximally using 0. 25% Marcaine with epinephrine. A racket type incision was created on the base of and the cutaneous n ecrosis involving the toe. Unfortunately, the skin necrosis was far enough proximal on the toe that the skin incision had to be carried essentially onto the foot. Dissection was carried through skin a nd subcutaneous tissue with a combination of sharp dissection and electrocautery. Dissection was car ried down to the bone. At the level of the bone just proximal to the skin incision was already at th e MTP joint. I therefore disarticulated the great toe at the MTP joint and passed it off the field. I debrided the head of the underlying bone with rongeurs. Hemostasis was meticulously achieved with electrocautery. All tissue was viable and there is no evidence of infection at this level. It was thoroughly irrigated. Enough bone was debrided to allow easy closure of the skin. The wound was katia sed in layers with 3-0 Vicryl and 3-0 Prolene and antibiotic ointment was placed externally along wit h a dry gauze dressing. Zaheer wrap was applied. There were no complications. The patient tolerated t he procedure well and was taken to recovery room in stable condition.
--- NOTE | 2018-01-07 06:13 | PQF ---
Grover Ibarra MALIK MD [id number] CLINICAL DOCUMENTATION CLARIFICATION FORM: POST DISCHARGE Addendum to original discharge summary date: 12/25/2017 DATE: 01/07/2018 ATTN: Dr. Marquez Please exercise your independent, professional judgment in responding to the clarification form. Clinical indicators are provided on the bottom of this form for your review Please check appropriate box(s) to clarify if the following diagnosis has been ruled in or ruled out: Sepsis [ x ] Ruled in diagnosis [ ] Continue to treat [x ] Resolved [ ] Ruled out diagnosis [ ] Cannot rule out diagnosis [ ] Other diagnosis (please specify) [ ] Unable to determine In addition, please specify: Present on Admission (POA): [ x ] Yes [ ] No [ ] Unable to determine For continuity of documentation, please document condition throughout progress notes and discharge summary. Thank You. CLINICAL INDICATORS - SIGNS / SYMPTOMS / LABS Per H&P: Sepsis. The patient has elevated WBCs as well as elevated C-reactive protein and obvious infection of the toe. RISK FACTORS Per H&P/Progress Notes: Diabetic infection of right great toe. TREATMENTS (per progress notes) IV Piperacillin. IV Vancomycin. . IV fluids. (This form is maintained as a part of the permanent medical record) 2014 [email or web address], [employer]. All Rights Reserved Nadine [email or web address] [phone] [email or web address]
--- NOTE | 2018-01-07 06:27 | PQF ---
Grover Ibarra MALIK MD [id number] CLINICAL DOCUMENTATION CLARIFICATION FORM: POST DISCHARGE Addendum to original discharge summary date: 12/25/2017 DATE: 01/07/2018 ATTN: Dr. Marquez Please exercise your independent, professional judgment in responding to the clarification form. Clinical indicators are provided on the bottom of this form for your review ___ Final Diagnosis on the Pathology report: Great toe, right, amputation: -- Ischemic ulceration (gangrene) -- Skin and soft tissue margins viable -- Acute and chronic osteomyelitis Clarification of Pathology report: Please check appropriate box(s): [ x ] Agree w the pathology finding as above [ ] Other explanation of pathology findings (please specify) [ ] Other diagnosis [ ] Unable to determine For continuity of documentation, please document condition throughout progress notes and discharge summary. Thank You. CLINICAL INDICATORS - SIGNS/ SYMPTOMS / LABS Per H&P/Progress Notes: Diabetic infection of right great toe. RISK FACTORS Per operative report: Diabetic foot infection of right great toe with infection invasive of the interphalangeal joint. Gentle debridement revealed open exposed interphalangeal joint. Toe was not salvageable. TREATMENTS Per operative report: Right great toe ray amputation with primary closure. (This form is maintained as a part of the permanent medical record) 2014 [email or web address], [employer]. All Rights Reserved Nadine [email or web address] [phone] [email or web address]
== END 2017-12-25 16:31 | disposition home or self-care (01) | DRG 239 ==
LOC: ERS 17:37 → T4-A 18:55
PROVIDERS: ADMIT Internal Medicine; ATTEND Internal Medicine
PROC: 0JBQ0ZZ Excision of Right Foot Subcutaneous Tissue and Fascia, Open Approach (ICD-10-PCS; 2017-12-21)
PROC: 0Y6M0Z9 Detachment at Right Foot, Partial 1st Ray, Open Approach (ICD-10-PCS; principal; 2017-12-23)
DX: E11.52 Type 2 diabetes mellitus with diabetic peripheral angiopathy with gangrene (principal); A41.9 Sepsis, unspecified organism; E87.1 Hypo-osmolality and hyponatremia; I96 Gangrene, not elsewhere classified; M86.171 Other acute osteomyelitis, right ankle and foot; M86.671 Other chronic osteomyelitis, right ankle and foot; E11.69 Type 2 diabetes mellitus with other specified complication; E11.621 Type 2 diabetes mellitus with foot ulcer; E11.65 Type 2 diabetes mellitus with hyperglycemia; L97.519 Non-pressure chronic ulcer of other part of right foot with unspecified severity; D64.9 Anemia, unspecified; Z87.891 Personal history of nicotine dependence; Z88.2 Allergy status to sulfonamides; Z79.84 Long term (current) use of oral hypoglycemic drugs; Z89.022 Acquired absence of left finger(s)
CPT/HCPCS: 36415; 36416; 80048; 80202; 83036; 83735; 85025; 85652; 86140; 87070; 87077; 87186; 87205; 88305; 88311; 90471; 90715; 96361; 96365; 96368; 96375; A4216; G8978-GP-CI; G8979-GP-CI; G8980-GP-CI; J1100; J1200; J1650; J1815; J1885; J2001; J2250; J2270; J2543; J2704; J3010; J3370; J3490; J7050; Q0162

== ENCOUNTER 2018-01-28 14:03 | Inpatient (IN) | payer SELFPAY ==
[2018-01-28 15:27] LABS: #Basophils 0.1 thou/uL (0.0-0.2); #Eosinphils 0.2 thou/uL (0.0-0.7); #Lymphocytes 1.9 thou/uL (1.20-3.40); #Monocytes 0.4 thou/uL (0.11-0.59); #Neutrophils 4.2 thou/uL (1.40-6.50); %Basophils 0.9 % (0.0-1.0); %Eosinophils 2.6 % (0.0-10.0); %Lymphocytes 27.6 % (21.0-51.0); %Monocytes 6.4 % (0.0-10.0); %Neutrophils 62.5 % (42.0-75.0); Hemoglobin 11.1 g/dL (14.0-18.0); Mean Corpuscular HGB CONC 35.5 g/dL (32.0-36.0); Mean Corpuscular Hemoglobin 28.4 pg (27.0-31.0); Mean Platelet Volume 6.2 fL (7.4-10.4); Platelet Count 279 thou/uL (130-400); RBC Distribution Width 12.3 % (11.5-14.5); Red Blood Cell (RBC) Count 3.91 mill/uL (4.70-6.10); White Blood Cell (WBC) Count 6.7 thou/uL (4.8-10.8)
[2018-01-28 15:51] LABS: ALT (SGPT) 8 U/L (8-55); AST (SGOT) 10 U/L (5-34); Albumin 4.4 g/dL (3.5-5.0); Alkaline Phosphatase 94 U/L (40-150); Anion Gap 14 mmol/L (10-20); BUN (Urea Nitrogen) 24 mg/dL (8.4-25.7); Bilirubin, Total 0.2 mg/dL (0.2-1.2); Calc. Creatinine Clearance 0 mL/min (70-130); Calcium 9.3 mg/dL (7.8-10.44); Carbon Dioxide 21 mmol/L (22-29); Chloride 105 mmol/L (98-107); Estimated GFR-MDRD 37; Globulin 3.2 g/dL (2.4-3.5); Glucose 96 mg/dL (70-105); Potassium 4.3 mmol/L (3.5-5.1); Protein, Total 7.6 g/dL (6.0-8.3); Sodium 136 mmol/L (136-145)
[2018-01-28] MEDS ORDERED: Ketorolac Tromethamine 30 MG/ML VIAL ONE (17:13)
[2018-01-28] MEDS ORDERED: Acetaminophen 500 MG TAB ONE (17:13)
[2018-01-28] MEDS ORDERED: Ondansetron HCl/PF 4 MG/2 ML Vial IVP PRN (19:46)
[2018-01-28] MEDS ORDERED: HumaLOG 300 UNITS/3 ML VIAL SC PRN ×2 (19:46)
[2018-01-28] MEDS ORDERED: Dextrose 50% Abboject 50 ML SYRINGE SLOW IVP PRN (19:46)
[2018-01-28] MEDS ORDERED: Acetaminophen 650 MG Suppository PR PRN (19:46)
[2018-01-28] MEDS ORDERED: Acetaminophen 325 MG TAB PO PRN (19:46)
[2018-01-28] MEDS ORDERED: Bisacodyl 5 MG TAB PO PRN (19:46)
[2018-01-28] MEDS ORDERED: Dextrose 5% in Water 1,000 ML IV PRN (19:46)
[2018-01-28] MEDS ORDERED: metFORMIN 500 MG TAB PO SCH (20:15)
[2018-01-28] MEDS: HYDROcodone/Acetaminophen 10/325 mg Tablet PO PRN (20:42)
[2018-01-28] MEDS: Docusate 100 MG CAP PO SCH (20:43)
[2018-01-28] MEDS: Famotidine 20 MG TAB PO SCH (20:43)
[2018-01-28] MEDS: Sodium Chloride 0.9% 1,000 ML IV SCH (20:46)
[2018-01-28] MEDS: Clindamycin/D5W 300 MG/50 ML BAG IVPB SCH (23:52)
[2018-01-29] MEDS: HYDROcodone/Acetaminophen 10/325 mg Tablet PO PRN ×5 (01:47→19:42)
--- NOTE | 2018-01-29 02:43 | HP ---
PRIMARY CARE PHYSICIAN: Corin Ocasio MD CHIEF COMPLAINT: Painful draining ulcer. HISTORY OF PRESENT ILLNESS: This is a 52-year-old diabetic patient who was in the hospital here 1 mo nth ago for osteomyelitis of the right great toe. He had an amputation of the toe and closure by Dr. Contreras and was discharged with a doxycycline and Keflex. The patient had failed to follow up with Dr. Contreras clinic as an outpatient. There was apparently some nonhealing of the part of the suture line, but there is some opening of the suture line, but no evidence of infection in a doctor's office and was healing well. Last seen Dr. Contreras was 1 week ago. The patient reports that over the last week, it started to get red and have some small amount of drainage from it and then yesterday, it st arted to drain a large amount of watery fluid with increasing pain, so he went into the emergency [facility] in [place]. He was given IV clindamycin and x-ray was done, which could not rule out osteomye litis due to the recent surgery, so he was transferred over here. The patient does report that he patel s had some shaking in the emergency room due to it being cold, and some pain, but otherwise no fevers or chills, but he has noted no other systemic symptoms. PAST MEDICAL HISTORY: 1. Diabetes mellitus type 2, on oral hypoglycemics. 2. Chronic anemia. 3. History of polysubstance abuse with methamphetamines and cocaine, off of that for over 8 weeks no w. He is currently in the [facility] in [place] for rehabilitation. The patient does report that his postop surgical boot broke so he has just been wearing a sneaker and he states he does not have the equipment to take good care of the wound on the toe. He also reports that he just ran out of his diabetes medicines. PAST SURGICAL HISTORY: 1. Amputation of the left pointer finger due to an accident. 2. Right great toe amputation. PAST PSYCHIATRIC HISTORY: None. SOCIAL HISTORY: The patient currently in the [facility] drug rehab program in [place] for co kenzie and methamphetamine abuse. He used to chew tobacco as well, but has not done that since being in the [facility]. FAMILY HISTORY: Mother had diabetes and breast cancer and his father in his 30s of bone cancer. ALLERGIES: SULFA. MEDICATIONS: 1. Metformin 1000 mg twice a day. 2. Glipizide 10 mg each morning. REVIEW OF SYSTEMS: Constitutional: See HPI. Eyes: No double vision or blurred vision. ENT: No c ongestion, drainage, or sore throat. Cardiovascular: No chest pain, no palpitations, or racing hear t. Pulmonary: No coughing, wheezing, or shortness of breath. Gastrointestinal: No abdominal pain, no nausea, vomiting, no diarrhea or constipation. Genitourinary: No dysuria or hematuria. Musculo skeletal: See HPI. Skin: See HPI. Neurologic: No numbness, tingling, or focal weakness. PHYSICAL EXAMINATION: VITAL SIGNS: Blood pressure 132/81, pulse 79, respirations 18, temperature 98.5, O2 sat 98% on room air. GENERAL: This is a well-developed, well-nourished, white male and is a little bit shaky, but not oth erwise in no acute distress. HEENT: Pupils equal, round, and react to light. Oropharynx clear without lesions, erythema, or exud ate. Moist mucous membranes. NECK: Supple. No lymphadenopathy, no thyroid nodules or enlargement, no JVD. HEART: Regular rate and rhythm. No murmurs, rubs, or gallops. LUNGS: Clear to auscultation bilaterally. No wheezes, crackle, or rhonchi. ABDOMEN: Soft, nontender to palpation, normoactive bowel sounds. No hepatosplenomegaly or masses. EXTREMITIES: Patient has absent right great toe. There is a large open ulceration at the site of th e amputation with copious amounts of clear, slightly whitish drainage. There is also about a centime ter surrounding swelling and erythema all the way around this ulceration and some minimal swelling an d redness of the foot, not onto the ankle or the leg. He does have very good peripheral pulses inclu ding dorsalis pedis pulse on this foot and intact sensation. SKIN: See above. No other rashes. NEUROLOGIC: Intact strength in all extremities. No facial droop. LABORATORY AND DIAGNOSTIC DATA: CBC with a hemoglobin of 11.1, hematocrit 31.3, the rest is normal. No leukocytosis. Complete metabolic panel was notable for creatinine of 1.89, which is elevated fro m his previous checks last month and carbon dioxide of 21, the remainder is normal. Lactic acid was negative. C-reactive protein was mildly elevated at 0.84 and his ESR was normal at 21. X-ray of the toe done in the [place] [facility], I did review the films as well as the radiologist's rep ort, states there is irregularity of the distal great toe metatarsal could be secondary to infectious process versus postsurgical change. ASSESSMENT: 1. Post-amputation diabetic wound infection. This does have a large amount of copious drainage and some surrounding erythema which is concerning for significant infection, unable to tell if he has ost eo from the x-ray due to the recent surgery. His ESR is not elevated at all and his CRP is not milagros estrada elevated, so I am doubtful that there is osteo into the metatarsal at this point. I am going to continue the patient on clindamycin 300 mg IV q.6 hours and then consult Dr. Contreras to evaluate the wound and see if it needs further debridement. Wound culture has been done in the emergency room and is pending. 2. Diabetes mellitus type 2. We will resume the patient's metformin and glipizide and we will check fingerstick blood sugars q.a.c. and at bedtime along with insulin sliding scale. The patient was to ld that he should go on insulin in his last hospitalization; however, he refused this. He states simin t checking his fingerstick blood sugars on the current oral medications, never gets above 150. 3. Deep venous thrombosis prophylaxis. The patient is on Lovenox while in the hospital. 4. Gastrointestinal prophylaxis. The patient is on Pepcid twice a day. 5. Code status. I did discuss with the patient and he is a FULL CODE. Should he be incapacitated, he states that his brother would be his medical power of attorney lawyer, his brother's name is Willem Rankin on.
[2018-01-29] MEDS: Clindamycin/D5W 300 MG/50 ML BAG IVPB SCH ×3 (05:53→17:46)
[2018-01-29 06:03] LABS: #Basophils 0.1 thou/uL (0.0-0.2); #Eosinphils 0.2 thou/uL (0.0-0.7); #Lymphocytes 2.1 thou/uL (1.20-3.40); #Monocytes 0.4 thou/uL (0.11-0.59); #Neutrophils 2.1 thou/uL (1.40-6.50); %Basophils 1.5 % (0.0-1.0); %Eosinophils 4.8 % (0.0-10.0); %Lymphocytes 43.3 % (21.0-51.0); %Monocytes 7.2 % (0.0-10.0); %Neutrophils 43.2 % (42.0-75.0); Hemoglobin 10.2 g/dL (14.0-18.0); Mean Corpuscular HGB CONC 34.2 g/dL (32.0-36.0); Mean Corpuscular Hemoglobin 27.8 pg (27.0-31.0); Mean Corpuscular Volume 81.5 fL (78.0-98.0); Mean Platelet Volume 6.5 fL (7.4-10.4); Platelet Count 253 thou/uL (130-400); RBC Distribution Width 12.2 % (11.5-14.5); Red Blood Cell (RBC) Count 3.66 mill/uL (4.70-6.10); White Blood Cell (WBC) Count 4.8 thou/uL (4.8-10.8)
[2018-01-29 06:24] LABS: Anion Gap 12 mmol/L (10-20); BUN (Urea Nitrogen) 22 mg/dL (8.4-25.7); Calc. Creatinine Clearance 72 mL/min (70-130); Carbon Dioxide 21 mmol/L (22-29); Chloride 110 mmol/L (98-107); Estimated GFR-MDRD 51; Glucose 107 mg/dL (70-105); Potassium 4.5 mmol/L (3.5-5.1); Sodium 138 mmol/L (136-145)
[2018-01-29] MEDS: Sodium Chloride 0.9% 1,000 ML IV SCH ×2 (07:27→08:38)
[2018-01-29] MEDS ORDERED: metFORMIN 500 MG TAB PO SCH (08:00)
[2018-01-29] MEDS: Docusate 100 MG CAP PO SCH ×2 (08:34→20:32)
[2018-01-29] MEDS: glipiZIDE 10 MG TAB PO SCH (08:35)
[2018-01-29] MEDS: Famotidine 20 MG TAB PO SCH ×2 (08:35→20:31)
[2018-01-29] MEDS: Enoxaparin Sodium 40 MG/0.4 ML SYRINGE SC SCH (09:00)
[2018-01-29] MEDS ORDERED: Bupivacaine/Epinephrine 0.25% 30 ML VIAL ONE (10:45)
[2018-01-29] MEDS ORDERED: Propofol 500 MG/50 ML VIAL ONE (10:51)
[2018-01-29] MEDS ORDERED: Fentanyl 100 MCG/2 ML VIAL ONE ×2 (10:51→11:09)
--- NOTE | 2018-01-29 10:53 | CON ---
DATE OF CONSULTATION: 01/29/2018 CHIEF COMPLAINT: Open wound, right great toe amputation site. HISTORY: Mr. Ibarra is a 52-year-old diabetic male, who underwent a right great toe amputation a little over a month ago by Dr. Contreras. He states that he slipped and fell and broke his postop shoe, and at that point, his wound opened up and has been draining ever since. He states that recently the toe became more swollen, red, and painful, so he decided to come into the emergency room. A plain film of the foot showed some irregularity of the distal metatarsal bone, but it was unclear whether this was postoperative or infectious in etiology. He states that he has had clear drainage from the wound chronically since it opened back up. He denies any fevers or chills. PAST MEDICAL HISTORY: Recently diagnosed diabetes, and a history of polysubstance abuse, currently in remission. He also has a history of anemia. PAST SURGICAL HISTORY: Left second digit amputation and right great toe amputation. SOCIAL HISTORY: He is currently in rehabilitation, and has not used any drugs in 2 months. FAMILY HISTORY: Diabetes and breast cancer and bone cancer. ALLERGIES: He reports an allergy to SULFA. MEDICATIONS: He is taking his outpatient medications of metformin and glipizide regularly. Since admission, he has also been started on IV clindamycin, Lovenox, Pepcid, sliding scale insulin, and multiple PRNs. LABORATORY DATA: White count is 4.8, hematocrit 29.8, platelets 253. Creatinine is mildly elevated at 1.46. Other electrolytes were unremarkable. Morning glucose was 113. CRP was mildly elevated at 0.84. Blood cultures are still pending. A swab of his toe is positive for Staph aureus, although sensitivities are still pending. PHYSICAL EXAMINATION: VITAL SIGNS: Patient is afebrile at 98.2 degrees, heart rate 74, respirations 20, 100% saturated on room air, blood pressure 120/78. GENERAL: Reveals a healthy-appearing man in no acute distress. He is not flushed or toxic in appearance. There is no jaundice or icterus. HEENT: Unremarkable. NECK: Supple, without lymphadenopathy or thyroid nodules. HEART: Regular in its rate and rhythm without murmurs, rubs, or gallops. LUNGS: Clear to auscultation bilaterally with good air entry. ABDOMEN: Soft, nontender, and nondistended. He has good pulses in his feet. He has swelling and erythema of the tissues near his right great toe amputation site and a lot of fibrinous debris within the wound, but no palpable bone. ASSESSMENT: Right great toe chronic wound, nonhealing with conservative management and now with erythema concerning for ongoing infection. I recommended debriding the wound at the bedside, which was done in a sharp excisional manner using pickups and scissors. The fibrinous debris was all debrided back revealing a tunnel inferiorly in the wound, at the base of which friable crumbling bone could be felt. This is consistent with osteomyelitis of the distal metatarsal bone, and I have recommended operative debridement to try to get back to healthy bone. He will require long-term antibiotics and VAC dressing, having failed conservative wound management with wet-to-dry dressings. This is for attempted limb salvage. He is indigent and we will apply for a phong wound VAC. Cultures will be sent from the operating room to try to guide antibiotic therapy. DARLINE
[2018-01-29] MEDS ORDERED: Midazolam HCl 2 mg/2 ml Vial ONE (11:09)
[2018-01-29] MEDS ORDERED: Ondansetron HCl/PF 4 MG/2 ML Vial IVP PRN (11:34)
[2018-01-29] MEDS ORDERED: Morphine Sulfate 2 MG/ML SYRINGE SLOW IVP PRN (11:34)
[2018-01-29] MEDS ORDERED: Promethazine HCl 25 MG/ML VIAL IM PRN (11:34)
[2018-01-29] MEDS ORDERED: Promethazine HCl 25 MG/ML VIAL SLOW IVP PRN (11:34)
[2018-01-29] MEDS ORDERED: HYDROmorphone 2 MG/ML VIAL SLOW IVP PRN (11:34)
[2018-01-29] MEDS ORDERED: Meperidine HCl/PF 25 MG/ML VIAL SLOW IVP PRN (11:34)
[2018-01-29] MEDS ORDERED: Morphine 4 MG/ML VIAL ONE (12:22)
--- NOTE | 2018-01-29 12:56 | PDOC.OP ---
Operative Note - Operative Note Operative Note: PROCEDURE: Right great toe debridement DATE OF PROCEDURE: 01/29/18 SURGEON: Jose Conde M.D. PREOPERATIVE DIAGNOSES: Chronic wound of right great toe with exposed bone POSTOPERATIVE DIAGNOSIS: Chronic wound of right great toe with exposed bone HISTORY: Diabetic patient with neurotrophic ulcer. Callus of his right great toe status post ray amputation by Dr. Contreras 5 weeks ago. Postoperatively his wound opened up and has been chronically draining since that time. He has had increased redness and swelling for the past few days and came into the hospital. On bedside examination he was found to have exposed bone in the base of the wound and operative debridement was recommended for attempted foot salvage. Postoperatively he will be managed with a VAC dressing for attempted limb salvage after failing conservative wound management. PROCEDURE IN DETAIL: After informed consent was obtained and appropriate preoperative antibiotics continued the patient was taken to the operating room he was placed in supine position and total intravenous anesthesia was administered. He was prepped and draped in a standard sterile fashion and local anesthesia infused circumferentially around the wound for a field block. The remaining fibrous scar tissue in the chronic wound was debrided sharply back to bleeding normal-appearing tissue. The inferior tunnel leading down to the exposed bone was explored and the end of the metatarsal bone and all sharp edges and loose pieces of bone were debrided from the wound. Some of the bone chips were sent for bone culture. Once all infected appearing and fibrotic tissues were debrided from the wound the wound was irrigated and hemostasis verified. Wound care then placed a VAC dressing. The patient was taken to the recovery room in good condition. Estimated blood loss was minimal. There were no complications. Specimen is bone chips for Gram stain and culture.
--- NOTE | 2018-01-29 14:43 | PDOC.PN ---
- Subjective Encounter Start Date: 01/29/18 Encounter Start Time: 14:41 Subjective: s/p I&D this morning.feels a little nauseated - Objective Resuscitation Status: Resuscitation Status FULL:Full Resuscitation MAR Reviewed: Yes Vital Signs & Weight: Vital Signs (12 hours) Temp Pulse Resp BP Pulse Ox 01/29/18 13:59 75 127/79 98 01/29/18 12:50 97.5 F L 74 16 134/81 98 01/29/18 12:45 97.5 F L 79 16 134/81 99 01/29/18 08:00 98.2 F 74 20 01/29/18 07:32 98.2 F 74 20 120/78 100 01/29/18 05:17 98.0 F 80 16 123/71 99 Weight Admit Weight 191 lb 8 oz Weight 191 lb 8 oz I&O: 01/28/18 01/29/18 01/30/18 06:59 06:59 06:59 Intake Total 1432 Output Total 1150 Balance 282 Result Diagrams: 01/29/18 05:15 01/29/18 05:15 Additional Labs: Accuchecks 01/29/18 01/28/18 05:17 20:47 POC Glucose 113 H 151 H Laboratory Tests 12/25/17 01/28/18 01/29/18 03:33 15:09 05:15 Creatinine 1.20 1.89 H 1.46 H labs reviewed Microbiology 01/28/18 17:56 Toe - Pending Bacterial Culture - Preliminary Staphylococcus aureus 01/28/18 15:13 Venous blood - Right Arm Blood Culture - Preliminary Specimen has been received and culture in progress. No Growth to date. 01/28/18 15:09 Venous blood - Left Arm Blood Culture - Preliminary Specimen has been received and culture in progress. No Growth to date. Phys Exam - Physical Examination Constitutional: NAD HEENT: PERRLA, moist MMs, sclera anicteric, oral pharynx no lesions, 2+ tonsils Neck: no nodes, no JVD, supple, full ROM Respiratory: no wheezing, no rales, no rhonchi, wheezing present, clear to auscultation bilateral Cardiovascular: RRR, no significant murmur, no rub Gastrointestinal: soft, non-tender, no distention, positive bowel sounds Musculoskeletal: no edema, pulses present R toe wound vac Neurological: non-focal, normal sensation, moves all 4 limbs Psychiatric: normal affect, A&O x 3 Skin: no rash Dx/Plan (1) Diabetic foot infection Code(s): E11.628 - TYPE 2 DIABETES MELLITUS WITH OTHER SKIN COMPLICATIONS; L08.9 - LOCAL INFECTION OF THE SKIN AND SUBCUTANEOUS TISSUE, UNSP Status: Acute Comment: s/p Rt great toe amputation 12/23, I&D today for recurrent infection Vs Chronic infection (2) SRINIVASAN (acute kidney injury) Code(s): N17.9 - ACUTE KIDNEY FAILURE, UNSPECIFIED Status: Acute (3) DM2 (diabetes mellitus, type 2) Status: Chronic Qualifiers: Diabetes mellitus complication status: with hyperglycemia (4) Chronic anemia Code(s): D64.9 - ANEMIA, UNSPECIFIED Status: Chronic - Plan continue antibiotics, PT/OT, out of bed/ambulate, DVT proph w/lovenox, DVT proph w/SCDs S/P I&D and wound vac.appreciate GS input -: cont clindamycin.may need ferry terminal agent ABx for chr infection Vs recurrance -: will consult ID for same.blood cx obtained-follow results -: Rebnla Fx stable. cont IVF.Stop metformin to avoid further injury -: am labs.Change to inpt as pt require several days of IV Abx & investigation * . Review of Systems - Review of Systems Constitutional: weakness, malaise. negative: fever, chills, sweats, other ENT: negative: Ear Pain, Ear Discharge, Nose Pain, Nose Discharge, Nose Congestion, Mouth Pain, Mouth Swelling, Throat Pain, Throat Swelling, Other Respiratory: negative: Cough, Dry, Shortness of Breath, Hemoptysis, SOB with Excertion, Pleuritic Pain, Sputum, Wheezing Cardiovascular: negative: chest pain, palpitations, orthopnea, paroxysmal nocturnal dyspnea, edema, light headedness, other Gastrointestinal: Nausea Genitourinary: negative: Dysuria, Frequency, Incontinence, Hematuria, Retention , Other Musculoskeletal: negative: Neck Pain, Shoulder Pain, Arm Pain, Back Pain, Hand Pain, Leg Pain, Foot Pain, Other Skin: negative: Rash, Lesions, Jim, Bruising, Other Neurological: negative: Weakness, Numbness, Incoordination, Change in Speech, Confusion, Seizures, Other - Medications/Allergies Allergies/Adverse Reactions: Allergies Allergy/AdvReac Type Severity Reaction Status Date / Time No Known Allergies Allergy Unverified 01/28/18 19:57 Medications: Current Medications Acetaminophen (Tylenol) 650 mg PO Q4H PRN PRN Reason: Headache/Fever or Pain Acetaminophen (Tylenol) 650 mg FL Q4H PRN PRN Reason: Headache/Fever or Pain Hydrocodone Bitart/Acetaminophen ([place] 10/325) 1 tab PO Q4H PRN PRN Reason: Moderate Pain (4-6) Last Admin: 01/29/18 08:42 Dose: 1 tab Hydrocodone Bitart/Acetaminophen ([place] 10/325) 2 tab PO Q4H PRN PRN Reason: Severe Pain (7-10) Bisacodyl (Dulcolax) 10 mg PO DAILYPRN PRN PRN Reason: Constipation Clindamycin Phosphate/Dextrose (Cleocin) 300 mg IVPB Q6HR [facility] Last Admin: 01/29/18 14:36 Dose: 300 mg Dextrose/Water (Dextrose 50%) 25 gm SLOW IVP PRN PRN PRN Reason: Hypoglycemia Docusate Sodium (Colace) 100 mg PO BID [facility] Last Admin: 01/29/18 08:34 Dose: Not Given Enoxaparin Sodium (Lovenox) 40 mg SC 0900 [facility] Famotidine (Pepcid) 20 mg PO BID [facility] Last Admin: 01/29/18 08:35 Dose: Not Given Glipizide (Glucotrol) 10 mg PO DAILY-[facility] Last Admin: 01/29/18 08:35 Dose: Not Given Glucagon (Glucagon) 1 mg IM PRN PRN PRN Reason: Hypoglycemia Dextrose/Water (D5w) 1,000 mls @ 0 mls/hr IV .Q0M PRN; As Directed PRN Reason: Hypoglycemia Sodium Chloride (Normal Saline 0.9%) 1,000 mls @ 100 mls/hr IV .Q10H [facility] Last Admin: 01/29/18 08:38 Dose: 1,000 mls Insulin Human Lispro (Humalog) 0 units SC .MILD SLIDING SCALE PRN PRN Reason: Mild Correctional Scale Insulin Human Lispro (Humalog) 0 units SC .BEDTIME SLIDING SC PRN PRN Reason: Bedtime Correctional Scale Ondansetron HCl (Zofran Odt) 4 mg PO Q6H PRN PRN Reason: Nausea/Vomiting Ondansetron HCl (Zofran) 4 mg IVP Q6H PRN PRN Reason: Nausea/Vomiting Last Admin: 01/29/18 14:29 Dose: 4 mg Saccharomyces Boulardii (Florastor) 250 mg PO DAILY [facility]
[2018-01-29] MEDS ORDERED: Saccharomyces boulardii 250 MG CAP PO SCH (14:45)
[2018-01-29] MEDS: Ondansetron ODT 4 MG TAB PO PRN (20:32)
[2018-01-30] MEDS: Clindamycin/D5W 300 MG/50 ML BAG IVPB SCH ×3 (00:04→12:15)
[2018-01-30] MEDS: HYDROcodone/Acetaminophen 10/325 mg Tablet PO PRN ×5 (00:22→17:05)
--- NOTE | 2018-01-30 01:10 | CON ---
DATE OF CONSULTATION: 01/29/2018 REASON FOR CONSULTATION: Recurrence of infection at right hallux osteomyelitis following amputation. HISTORY OF PRESENT ILLNESS: A 52-year-old with a history of type 2 diabetes, chronic methamphetamine use as well as cocaine the inhalation route. Currently , in rehab place in [place], who had been recently treated for osteomyelitis of right hallux with amputation at the MPJ site. The pathology showed a necrosis and osteomyelitis with viable skin margins and the organisms were group B strep and Morganella. Morganella had a quite broad susceptibility profile. The patient then has developed an area of opening at the suture line with development of erythema and drainage. The patient was readmitted. Dr. Conde performed a repeat procedure. The operative report was reviewed and the fibrous scar tissue and the chronic wound was debrided sharply to normal appearing tissue. Inferior tunnel leading down to the exposed bone was explored. The end of the metatarsal bone, loose pieces of bone were debrided from the wound, and some bone chips were sent for bone culture. Negative pressure dressing was applied. The patient denies any headaches, visual symptoms, sore throat, odynophagia, dysphagia. He has multiple decay teeth from chronic meth use. No neck pain, no cough or sputum production, no chest pain, no abdominal pain, diarrhea, or genitourinary symptoms. No other joint symptoms. PAST MEDICAL HISTORY: Type 2 diabetes; anemia; methamphetamine and cocaine use ; osteomyelitis, right first toe; amputation of the right first toe recently. SOCIAL HISTORY: Meth and cocaine use as noted above, but no IV drug use, chewing tobacco but no smoking, no alcoholic beverage use. FAMILY HISTORY: Diabetes and breast cancer. ALLERGIES: SULFA DRUGS. MEDICATIONS: Metformin and glipizide. CURRENT MEDICATIONS: Hydrocodone, clindamycin, enoxaparin. PHYSICAL EXAMINATION: VITAL SIGNS: Essentially normal. SKIN EXAM: Shows the negative pressure dressing, right first toe amputation site. No lymphadenopathy. HEENT EXAM: Noncontributory except for the very decayed teeth, pretty much the entire anterior upper and lower maxillary teeth are decayed. Oral cavity is moist. NECK: Supple, no jugular vein distention. LUNGS: With symmetric clear breath sounds. HEART: S1 and S2, regular rate. No S3, S4. No murmurs. ABDOMEN: Soft, not distended or tender. No ascites. No bladder distention. EXTREMITIES: No other joint inflammatory activity. Pulses are bounding, dorsalis pedis and posterior tibialis. Cap refill is normal. NEUROLOGIC EXAMINATION: Nonfocal including cognitive function. LABORATORY DATA: White cell count 6.7, hemoglobin 11, platelets 279, with normal differential. Sodium 138, creatinine 1.46. Liver profile normal. Albumin 4.4. The microbiology with Staph aureus with pending susceptibilities. The previous microbiology from a month ago was group B strep and Morganella. ASSESSMENT AND DISCUSSION: Type 2 diabetes with osteomyelitis, right first toe , status post amputation with recurrence of inflammatory process now with Staphylococcus aureus, possibly methicillin-resistant Staphylococcus aureus. Vascular supply appears adequate. We will wait for the full susceptibility profile. The options will be continuation of iv therapy through Picc access or a combination of quinolone/rifampin or zyvox depending on susceptibility profile. MTDD
[2018-01-30] MEDS: Sodium Chloride 0.9% 1,000 ML IV SCH ×2 (02:58→12:14)
[2018-01-30 05:23] LABS: #Basophils 0.1 thou/uL (0.0-0.2); #Eosinphils 0.2 thou/uL (0.0-0.7); #Lymphocytes 2.2 thou/uL (1.20-3.40); #Monocytes 0.4 thou/uL (0.11-0.59); #Neutrophils 3.1 thou/uL (1.40-6.50); %Eosinophils 3.9 % (0.0-10.0); %Lymphocytes 37.1 % (21.0-51.0); %Monocytes 6.5 % (0.0-10.0); %Neutrophils 51.6 % (42.0-75.0); Hemoglobin 10.1 g/dL (14.0-18.0); Mean Corpuscular HGB CONC 33.8 g/dL (32.0-36.0); Mean Corpuscular Hemoglobin 27.7 pg (27.0-31.0); Mean Corpuscular Volume 81.9 fL (78.0-98.0); Mean Platelet Volume 6.3 fL (7.4-10.4); Platelet Count 273 thou/uL (130-400); RBC Distribution Width 12.3 % (11.5-14.5); Red Blood Cell (RBC) Count 3.65 mill/uL (4.70-6.10)
[2018-01-30 05:35] LABS: Anion Gap 11 mmol/L (10-20); BUN (Urea Nitrogen) 18 mg/dL (8.4-25.7); Calc. Creatinine Clearance 86 mL/min (70-130); Carbon Dioxide 23 mmol/L (22-29); Chloride 109 mmol/L (98-107); Estimated GFR-MDRD 60; Glucose 159 mg/dL (70-105); Potassium 4.8 mmol/L (3.5-5.1); Sodium 138 mmol/L (136-145)
[2018-01-30] MEDS: glipiZIDE 10 MG TAB PO SCH (06:38)
[2018-01-30] MEDS: Docusate 100 MG CAP PO SCH (08:32)
[2018-01-30] MEDS: Enoxaparin Sodium 40 MG/0.4 ML SYRINGE SC SCH (08:33)
[2018-01-30] MEDS: Famotidine 20 MG TAB PO SCH (08:33)
[2018-01-30] MEDS ORDERED: Saccharomyces boulardii 250 MG CAP PO SCH (09:00)
[2018-01-30 10:18] LABS: Iron 60 ug/dL (65-175); Iron Binding Capacity, Total 236 mcg/dL (261-462)
[2018-01-30] MEDS ORDERED: IRON SUCROSE COMPLEX 100 MG/5 ML SLOW IVP SCH (11:00)
[2018-01-30 11:06] LABS: Folate (Folic Acid) 6.9 ng/mL (7.0-31.4)
[2018-01-30] MEDS ORDERED: Sodium Ferric Gluconate 250 MG in Sodium Chloride 0.9% 100 ML IVPB SCH (11:30)
[2018-01-30 11:37] VITALS: BMI 29.2
--- NOTE | 2018-01-30 13:57 | PRG ---
DATE OF SERVICE: 01/30/2018 Feeling well. No pain, no respiratory symptoms, no abdominal pain, no diarrhea. PHYSICAL EXAMINATION: VITAL SIGNS: T-max 98.3. Other vital signs are normal. GENERAL: Awake, alert, oriented. LUNGS: Clear. HEART: S1, S2, regular rate. No S3. ABDOMEN: Soft, not distended or tender. EXTREMITIES: Foot with the negative pressure dressing. The previously noted areas of erythema have resolved. LABORATORY DATA: White cell count 6.0, hemoglobin 10, and platelets 273. Microbiology with MRSA pre sumptive Enterococcus two different gram negatives. Susceptibilities on MRSA have been reviewed. Th e other organisms have not been susceptibility tested yet. ASSESSMENT AND DISCUSSION: Type 2 diabetes with osteomyelitis, right first toe, status post amputati on, recurrence of inflammatory process with polymicrobial hortensia including methicillin-resistant Staph ylococcus aureus. We will switch him to oral Augmentin, Cipro and rifampin for discharge planning. Treat for 4 weeks assuming adequate margin of amputation, follow up in the clinic in 2 weeks. Discus sed potential adverse reactions of antibiotics with patient, particularly diarrhea with gastrointesti nal side effects and hypersensitivity reaction and advised him to call me or his personal doctor if t hey develop.
--- NOTE | 2018-01-30 14:22 | PDOC.PN ---
- Subjective Encounter Start Date: 01/30/18 Encounter Start Time: 14:21 Subjective: feels well. no new complaints -: no N/V/D. no fever/chills - Objective Resuscitation Status: Resuscitation Status FULL:Full Resuscitation MAR Reviewed: Yes Vital Signs & Weight: Vital Signs (12 hours) Temp Pulse Resp BP Pulse Ox 01/30/18 11:12 98.2 F 83 14 148/90 H 99 01/30/18 07:52 98.3 F 85 14 99 01/30/18 07:40 98.3 F 85 14 123/75 99 01/30/18 04:00 98 F 82 16 121/77 97 Weight Admit Weight 191 lb 8 oz Weight 197 lb 9.6 oz I&O: 01/29/18 01/30/18 01/31/18 06:59 06:59 06:59 Intake Total 1432 1900 Output Total 1150 1600 Balance 282 300 Result Diagrams: 01/30/18 05:03 01/30/18 05:03 Additional Labs: Accuchecks 01/30/18 01/30/18 01/29/18 11:30 05:47 20:44 POC Glucose 129 H 185 H 173 H 01/29/18 14:38 POC Glucose 113 H Microbiology 01/28/18 17:56 Toe - Pending Bacterial Culture - Final Methicillin resistant S.aureus Presumptive Enterococcus sp. Gram Negative Julian Gram Negative Julian#2 01/29/18 11:35 Toe - Bone Bacterial Culture - Preliminary 01/28/18 15:13 Venous blood - Right Arm Blood Culture - Preliminary Specimen has been received and culture in progress. No Growth to date. 01/28/18 15:09 Venous blood - Left Arm Blood Culture - Preliminary Specimen has been received and culture in progress. No Growth to date. Laboratory Tests 12/20/17 12/21/17 12/23/17 15:51 04:06 03:52 Hgb 11.0 L 9.5 L 10.5 L 12/25/17 01/28/18 01/29/18 03:33 15:09 05:15 Hgb 10.1 L 11.1 L 10.2 L 01/30/18 05:03 Hgb 10.1 L labs reviewed Phys Exam - Physical Examination Constitutional: NAD HEENT: PERRLA, moist MMs, sclera anicteric, oral pharynx no lesions Neck: no nodes, no JVD, supple, full ROM Respiratory: no wheezing, no rales, no rhonchi, clear to auscultation bilateral Cardiovascular: RRR, no significant murmur, no rub Gastrointestinal: soft, non-tender, no distention, positive bowel sounds Musculoskeletal: no edema, pulses present wound vac in place .R foot Neurological: non-focal, normal sensation, moves all 4 limbs Psychiatric: normal affect, A&O x 3 Skin: no rash Dx/Plan (1) Diabetic foot infection Code(s): E11.628 - TYPE 2 DIABETES MELLITUS WITH OTHER SKIN COMPLICATIONS; L08.9 - LOCAL INFECTION OF THE SKIN AND SUBCUTANEOUS TISSUE, UNSP Status: Acute Comment: s/p Rt great toe amputation 12/23, I&D yesterday for recurrent infection Vs Chronic infection (2) SRINIVASAN (acute kidney injury) Code(s): N17.9 - ACUTE KIDNEY FAILURE, UNSPECIFIED Status: Acute (3) DM2 (diabetes mellitus, type 2) Status: Chronic Qualifiers: Diabetes mellitus complication status: with hyperglycemia (4) Chronic anemia Code(s): D64.9 - ANEMIA, UNSPECIFIED Status: Chronic Comment: Low Iron and Folic acid - Plan DVT proph w/SCDs PO Abx per ID recs. CM assisting w arranging same -: [place] wound Vac and wound care arranged. -: Give 1 dose IV iron and start FA PO. -: DCed by [facility] with same if wound vac & wound care finalised today -: hemodynamically stable * . Review of Systems - Review of Systems Constitutional: negative: fever, chills, sweats, weakness, malaise, other ENT: negative: Ear Pain, Ear Discharge, Nose Pain, Nose Discharge, Nose Congestion, Mouth Pain, Mouth Swelling, Throat Pain, Throat Swelling, Other Respiratory: negative: Cough, Dry, Shortness of Breath, Hemoptysis, SOB with Excertion, Pleuritic Pain, Sputum, Wheezing Cardiovascular: negative: chest pain, palpitations, orthopnea, paroxysmal nocturnal dyspnea, edema, light headedness, other Gastrointestinal: negative: Nausea, Vomiting, Abdominal Pain, Diarrhea, Constipation, Melena, Hematochezia, Other Genitourinary: negative: Dysuria, Frequency, Incontinence, Hematuria, Retention , Other Musculoskeletal: negative: Neck Pain, Shoulder Pain, Arm Pain, Back Pain, Hand Pain, Leg Pain, Foot Pain, Other Neurological: negative: Weakness, Numbness, Incoordination, Change in Speech, Confusion, Seizures, Other - Medications/Allergies Allergies/Adverse Reactions: Allergies Allergy/AdvReac Type Severity Reaction Status Date / Time No Known Allergies Allergy Unverified 01/28/18 19:57 Medications: Current Medications Acetaminophen (Tylenol) 650 mg PO Q4H PRN PRN Reason: Headache/Fever or Pain Acetaminophen (Tylenol) 650 mg [place] Q4H PRN PRN Reason: Headache/Fever or Pain Hydrocodone Bitart/Acetaminophen ([place] 10/325) 1 tab PO Q4H PRN PRN Reason: Moderate Pain (4-6) Last Admin: 01/29/18 08:42 Dose: 1 tab Hydrocodone Bitart/Acetaminophen ([place] 10/325) 2 tab PO Q4H PRN PRN Reason: Severe Pain (7-10) Last Admin: 01/30/18 13:24 Dose: 2 tab Bisacodyl (Dulcolax) 10 mg PO DAILYPRN PRN PRN Reason: Constipation Ciprofloxacin (Cipro) 500 mg PO 0600,1999 [facility] Clindamycin HCl (Cleocin) 300 mg PO Q6HR [facility] Dextrose/Water (Dextrose 50%) 25 gm SLOW IVP PRN PRN PRN Reason: Hypoglycemia Docusate Sodium (Colace) 100 mg PO BID [facility] Last Admin: 01/30/18 08:32 Dose: 100 mg Enoxaparin Sodium (Lovenox) 40 mg SC 0900 [facility] Last Admin: 01/30/18 08:33 Dose: 40 mg Famotidine (Pepcid) 20 mg PO BID [facility] Last Admin: 01/30/18 08:33 Dose: 20 mg Folic Acid (Folvite) 1 mg PO DAILY [facility] Folic Acid (Folvite) 1 mg PO NOW [facility] Stop: 01/30/18 16:30 Glipizide (Glucotrol) 10 mg PO DAILY-[facility] Last Admin: 01/30/18 06:38 Dose: 10 mg Glucagon (Glucagon) 1 mg IM PRN PRN PRN Reason: Hypoglycemia Dextrose/Water (D5w) 1,000 mls @ 0 mls/hr IV .Q0M PRN; As Directed PRN Reason: Hypoglycemia Sodium Chloride (Normal Saline 0.9%) 1,000 mls @ 100 mls/hr IV .Q10H [facility] Last Admin: 01/30/18 12:14 Dose: 1,000 mls Insulin Human Lispro (Humalog) 0 units SC .MILD SLIDING SCALE PRN PRN Reason: Mild Correctional Scale Insulin Human Lispro (Humalog) 0 units SC .BEDTIME SLIDING SC PRN PRN Reason: Bedtime Correctional Scale Ondansetron HCl (Zofran Odt) 4 mg PO Q6H PRN PRN Reason: Nausea/Vomiting Last Admin: 01/29/18 20:32 Dose: 4 mg Ondansetron HCl (Zofran) 4 mg IVP Q6H PRN PRN Reason: Nausea/Vomiting Last Admin: 01/29/18 14:29 Dose: 4 mg Rifampin (Rifadin) 300 mg PO 1000,2200 [facility] Saccharomyces Boulardii (Florastor) 250 mg PO DAILY [facility] Last Admin: 01/30/18 08:33 Dose: 250 mg
[2018-01-30] MEDS ORDERED: Folic Acid 1 MG TAB PO SCH (14:30)
[2018-01-30] MEDS: Ondansetron ODT 4 MG TAB PO PRN (14:41)
[2018-01-30 15:28] VITALS: BP 166/92; TEMP 98.4
[2018-01-30] MEDS ORDERED: Clindamycin 150 MG CAP PO SCH (18:00)
[2018-01-30] MEDS ORDERED: Ciprofloxacin 500 MG TAB PO SCH (20:00)
[2018-01-30] MEDS ORDERED: Rifampin 300 MG CAP PO SCH (22:00)
[2018-01-31] MEDS ORDERED: Folic Acid 1 MG TAB PO SCH (09:00)
== END 2018-01-30 19:00 | disposition home or self-care (01) | DRG 629 ==
LOC: ERS 14:03 → OBSVTOIN 19:45 → 2SW 19:45 → SURG A 01-29 15:56
PROVIDERS: ADMIT Emergency Medicine; ATTEND Emergency Medicine
PROC: 0QBN0ZZ Excision of Right Metatarsal, Open Approach (ICD-10-PCS; principal; 2018-01-29)
DX: E11.69 Type 2 diabetes mellitus with other specified complication (principal); M86.8X7 Other osteomyelitis, ankle and foot; E11.621 Type 2 diabetes mellitus with foot ulcer; E11.65 Type 2 diabetes mellitus with hyperglycemia; L97.519 Non-pressure chronic ulcer of other part of right foot with unspecified severity; N17.9 Acute kidney failure, unspecified; D64.89 Other specified anemias; B95.62 Methicillin resistant Staphylococcus aureus infection as the cause of diseases classified elsewhere; Z83.3 Family history of diabetes mellitus; Z80.3 Family history of malignant neoplasm of breast; Z88.2 Allergy status to sulfonamides; Z89.411 Acquired absence of right great toe; Z89.422 Acquired absence of other left toe(s); Z79.84 Long term (current) use of oral hypoglycemic drugs
CPT/HCPCS: 36415; 36416; 80048; 80053; 82607; 82746; 83540; 83550; 83605; 85025; 85652; 86140; 87040; 87070; 87077; 87186; 87205; 96374; G8978-GP-CI; G8979-GP-CI; G8980-GP-CI; J1650; J1885; J2250; J2270; J2405; J2704; J2916; J3010; J3490; J7050; Q0162

== ENCOUNTER 2018-02-02 13:42 | Outpatient (CLI) | payer SELFPAY ==
[2018-02-08] MEDS ORDERED: Lidocaine 2% Jelly 5 ML TUBE ONE (14:47)
[2018-02-08] MEDS ORDERED: Sodium Chloride 0.9% 15 ML NEB ONE (14:47)
== END 2018-02-02 13:43 | disposition home or self-care (01) ==
LOC: WCC 13:42
PROVIDERS: ATTEND Family Medicine
DX: T81.89XD Other complications of procedures, not elsewhere classified, subsequent encounter (principal)
CPT/HCPCS: 97605; A4218

== ENCOUNTER 2018-02-05 10:57 | Outpatient (CLI) | payer SELFPAY ==
[2018-02-08] MEDS ORDERED: Sodium Chloride 0.9% 15 ML NEB ONE (13:37)
[2018-02-08] MEDS ORDERED: Lidocaine 2% Jelly 5 ML TUBE ONE (13:37)
== END 2018-02-05 10:58 | disposition home or self-care (01) ==
LOC: WCC 10:57
PROVIDERS: ATTEND Podiatrist Foot & Ankle Surgery
DX: T81.89XD Other complications of procedures, not elsewhere classified, subsequent encounter (principal)
CPT/HCPCS: 97605; A4218

== ENCOUNTER 2018-02-10 10:59 | Outpatient (CLI) | payer SELFPAY ==
[~2018-02-10 10:59] MED LIST: Sodium Chloride 0.9% 15 ML NEB ONE
== END 2018-02-10 11:00 | disposition home or self-care (01) ==
LOC: WCC 10:59
PROVIDERS: ATTEND Podiatrist Foot & Ankle Surgery
DX: T81.89XD Other complications of procedures, not elsewhere classified, subsequent encounter (principal)
CPT/HCPCS: 97605; A4218

== ENCOUNTER 2018-02-13 08:04 | Outpatient (CLI) | payer SELFPAY ==
[2018-02-13] MEDS ORDERED: Sodium Chloride 0.9% 15 ML NEB ONE (10:39)
== END 2018-02-13 08:05 | disposition home or self-care (01) ==
LOC: WCC 08:04
PROVIDERS: ATTEND Podiatrist Foot & Ankle Surgery
DX: T81.89XD Other complications of procedures, not elsewhere classified, subsequent encounter (principal)
CPT/HCPCS: 97605; A4218

== ENCOUNTER 2018-02-16 13:05 | Outpatient (CLI) | payer SELFPAY | END 2018-02-16 13:06 | disposition home or self-care (01) | LOC: WCC 13:05 | PROVIDERS: ATTEND Podiatrist Foot & Ankle Surgery | DX: T81.89XD Other complications of procedures, not elsewhere classified, subsequent encounter (principal) | CPT/HCPCS: 97605 ==

== ENCOUNTER 2018-02-19 15:34 | Outpatient (CLI) | payer SELFPAY | END 2018-02-19 15:35 | disposition home or self-care (01) | LOC: WCC 15:34 | PROVIDERS: ATTEND Family Medicine | DX: T81.89XD Other complications of procedures, not elsewhere classified, subsequent encounter (principal) | CPT/HCPCS: 97605 ==

== ENCOUNTER 2018-03-02 13:22 | Outpatient (CLI) | payer OTHER, SELFPAY ==
--- NOTE | 2018-03-02 15:41 | PRG ---
DATE OF SERVICE: 03/02/2018 HISTORY OF PRESENT ILLNESS: Mr. Grover Ibarra is a very pleasant 52-year-old gentleman, who pr esents to the Wound Center for evaluation of a wound of the right foot subsequent to right great toe debridement on 01/29/[address] Jose Conde. The patient underwent the preceding procedure for a chronic wound of the right great toe with exposed bone. Previously on 12/23/2017, the patient had u ndergone ray amputation of the right great toe with primary closure by Dr. Petr Contreras. Negative pressure therapy was initiated intraoperatively at the time of surgery by Dr. Conde and upon disch arge from [facility], the patient was referred to the Wound Center for assista nce with dressing changes of the wound VAC. The patient states that he was placed on ciprofloxacin, Augmentin, and rifampin. The patient states that he has completed the courses of ciprofloxacin and r ifampin as prescribed. He states that because of a rash, he was unable to complete the last 2 days o f his course of Augmentin. PAST MEDICAL HISTORY: 1. Diabetes mellitus. 2. Anemia. PAST SURGICAL HISTORY: 1. Amputation of left index finger secondary to accident approximately 13 years ago. 2. Ray amputation of right great toe with primary closure on 12/23/[address] ePtr Contreras. 3. Right great toe debridement for chronic wound of right great toe with exposed bone on 01/29/[address] Jose Conde. 4. Left knee surgery. MEDICATIONS: 1. Metformin. 2. Ciprofloxacin. 3. Rifampin 3. Antihypertensive. ALLERGIES: AUGMENTIN. SOCIAL HISTORY: Significant for tobacco use. The patient states that he dips snuff and has done so for 44 years. He states, however, that he quit in December of this year. The patient also admits to the social consumption of alcohol. Again, he states that he stopped consuming alcohol in December this yea r. FAMILY HISTORY: Family history is significant for diabetes mellitus. The patient states that his mo ther was diagnosed with diabetes mellitus. Family history is negative for coronary artery disease. PHYSICAL EXAMINATION: VITAL SIGNS: Temperature 97.7, pulse 107, respirations 17, blood pressure 113/71. Accu-Chek 120. GENERAL: A 52-year-old gentleman lying on table in examination room in no acute distress. HEENT: Normocephalic, atraumatic. NECK: No nuchal rigidity. CHEST: Clear to auscultation. CARDIOVASCULAR: Regular rate and rhythm. ABDOMEN: Soft. EXTREMITIES: A wound of the right foot is present, which measures approximately 1.2 x 1.2 cm. Granu lation tissue is visible within the wound margins. No purulent drainage is associated with the wound . No cellulitis of the right foot is appreciated. No maceration of the skin of the periwound is not ed. A dorsalis pedis pulse and a posterior tibial pulse are both easily palpable on the right. No s ignificant edema of the right foot is present on exam today. NEUROLOGIC: Grossly nonfocal. ASSESSMENT AND PLAN: 1. Wound of right foot subsequent to right great toe debridement for chronic wound of right great to e with exposed bone on 01/29/[address] oJse Conde. Previously, the patient had undergone ray a mputation of the right great toe with primary closure on 12/23/[address] Petr Contreras. The braxton ent states that he is unable to continue negative pressure therapy due to financial constraints. Aug mentin will be discontinued. I will see Mr. Ibarra again in two weeks. 2. Diabetes mellitus. The patient's Accu-Chek in clinic today is 120. The patient has been told th at for optimal wound healing, his blood glucoses should remain below 150. 3. Anemia.
[2018-03-02] MEDS ORDERED: Sodium Chloride 0.9% 15 ML NEB ONE (22:02)
== END 2018-03-02 13:23 | disposition home or self-care (01) ==
LOC: WCC 13:22
PROVIDERS: ATTEND Family Medicine
DX: T81.89XD Other complications of procedures, not elsewhere classified, subsequent encounter (principal); E11.9 Type 2 diabetes mellitus without complications; D64.9 Anemia, unspecified
CPT/HCPCS: A4218

== ENCOUNTER 2018-03-05 13:25 | Outpatient (CLI) | payer OTHER, SELFPAY | END 2018-03-05 13:26 | disposition home or self-care (01) | LOC: WCC 13:25 | PROVIDERS: ATTEND Family Medicine | DX: T81.89XD Other complications of procedures, not elsewhere classified, subsequent encounter (principal) | CPT/HCPCS: 97605 ==

== ENCOUNTER 2018-03-16 15:00 | Outpatient (CLI) | payer OTHER ==
--- NOTE | 2018-03-16 16:42 | PRG ---
DATE OF SERVICE: 03/16/2018 HISTORY: Mr. Grover Ibarra is a very pleasant 52-year-old gentleman who presents to the Wound Center for evaluation of a wound of the right foot subsequent to right great toe debridement on 01/29/[address] Jose Conde. The patient underwent the preceding procedure for a chronic wound of the right great toe with exposed bone. Previously on 12/23/2017, the patient had undergone ray amputation of the right great toe with primary closure by Dr. Petr Contreras. Negative pressure therapy was initiated intraoperatively at the time of surgery by Dr. Conde and upon discharge from [facility], the patient was referred to the Wound Center for assistance with dressing changes of the wound VAC. The patient previously stated that he was placed on ciprofloxacin, Augmentin and rifampin. The patient stated that he had completed the courses of ciprofloxacin and rifampin as prescribed. He stated that because of a rash, he was unable to complete the last 2 days of his course of Augmentin. Since the patient's visit on 03/02/2018, negative pressure therapy was discontinued by Dr. Conde. The patient is now performing dressing changes of Aquacel AG as per Dr. Conde. PHYSICAL EXAMINATION: VITAL SIGNS: Temperature 97.5, pulse 97, respirations 22, blood pressure 134/ 68. Accu-Chek 112. EXTREMITIES: A wound of the right foot is present which measures approximately 0.9 x 1.3 cm. Granulation tissue is present within the wound margins. Necrotic and nonviable tissue present within the wound margins was debrided with an excisional full-thickness debridement with the use of a curette. No purulent drainage is associated with the wound. No cellulitis of the right foot is appreciated. No maceration of the skin of the periwound is noted. A dorsalis pedis pulse is easily palpable on the right. No significant edema of the right foot is present on exam today. ASSESSMENT AND PLAN: 1. Wound of right foot subsequent to right great toe debridement for chronic wound of right great toe with exposed bone on 01/29/[address] Jose Conde. Previously, the patient had undergone ray amputation of the right great toe with primary closure on 12/23/[address] Petr Contreras. The patient has completed a course of negative pressure therapy and dressing changes of Aquacel AG as per Dr. Conde will be continued. I will see Mr. Ibarra again in two weeks. 2. Diabetes mellitus. The patient's Accu-Chek in clinic today is 112. The patient has been reminded that for optimal wound healing, his blood glucoses should remain below 150. 3. Anemia. MTDD
== END 2018-03-16 15:01 | disposition home or self-care (01) ==
LOC: WCC 15:00
PROVIDERS: ATTEND Family Medicine
DX: T81.89XD Other complications of procedures, not elsewhere classified, subsequent encounter (principal); E11.9 Type 2 diabetes mellitus without complications; D64.9 Anemia, unspecified
CPT/HCPCS: A4218

== ENCOUNTER 2018-04-06 13:45 | Outpatient (CLI) | payer OTHER ==
--- NOTE | 2018-04-06 14:23 | PRG ---
DATE OF SERVICE: 04/06/2018 HISTORY: Mr. Grover Ibarra is a very pleasant 52-year-old gentleman who presents to the Wound Center f or evaluation of a wound of the right foot subsequent to right great toe debridement on 01/29/[address] Jose Conde. The patient underwent the preceding procedure for a chronic wound of the right great toe with exposed bone. Previously on 12/23/2017, the patient had undergone ray amputation of t he right great toe with primary closure by Dr. Petr Contreras. Negative pressure therapy was initia faiza intraoperatively at the time of surgery by Dr. Conde and upon discharge from [facility], the patient was referred to the Wound Center for assistance with dressing changes of the wound VAC. The patient previously stated that he was placed on ciprofloxacin, Augmentin and rif ampin. The patient stated that he had completed the courses of ciprofloxacin and rifampin as prescri bed. He stated that because of a rash, he was unable to complete the last 2 days of his course of Au gmentin. Subsequent to the patient's visit on 03/02/2018, negative pressure therapy was discontinued by Dr. Conde. The patient then began performing dressing changes of Aquacel AG also as per Dr. Kasia stone. PHYSICAL EXAMINATION: VITAL SIGNS: Temperature 98.0, pulse 92, respirations 18, blood pressure 129/69. Accu-Chek 136. EXTREMITIES: A wound of the right foot is present, which measures approximately 1.8 x 0.8 cm. Granu lation tissue is present within the wound margins. Necrotic and nonviable tissue present within the wound margins was debrided with an excisional full-thickness debridement with the use of a curette. No purulent drainage is associated with the wound. No cellulitis of the right foot is appreciated. No maceration of the skin of the periwound is noted. No significant edema of the right foot is prese nt on exam today. Undermining callus and desiccated tissue at the periphery of the wound were also e liminated with the use of scissors. Post-debridement measurements were approximately 1.2 x 0.5 cm. ASSESSMENT AND PLAN: 1. Wound of right foot subsequent to right great toe debridement for chronic wound of right great to e with exposed bone on 01/29/[address] Jose Conde. Previously, the patient had undergone ray a mputation of the right great toe with primary closure on 12/23/[address] Petr Contreras. The braxton ent has completed a course of negative pressure therapy and dressing changes of Aquacel AG as per Dr. Conde will be continued. The patient has been instructed to perform these dressing changes on a d aily basis after cleansing and irrigation. As per the patient's request, Mr. Ibarra will be discharg ed from clinic today with followup on a p.r.n. basis. The patient states he has a new job and wishes to minimize his visits to the Wound Center if at all possible. Although the wound has almost healed completely, I have instructed the patient to seek medical attention if his wound fails to heal in a timely manner. The patient understands and is in agreement with the preceding treatment plan. 2. Diabetes mellitus. The patient's Accu-Chek in clinic today is 136. The patient has been reminde d that for optimal wound healing, his blood glucoses should remain below 150. 3. Anemia.
== END 2018-04-06 13:46 | disposition home or self-care (01) ==
LOC: WCC 13:45
PROVIDERS: ATTEND Family Medicine
DX: S91.301D Unspecified open wound, right foot, subsequent encounter (principal); E11.9 Type 2 diabetes mellitus without complications; D64.9 Anemia, unspecified; Z89.411 Acquired absence of right great toe

== ENCOUNTER 2018-07-12 12:49 | Inpatient (IN) | payer OTHER ==
[2018-07-12 13:51] LABS: #Basophils 0.1 thou/uL (0.0-0.2); #Eosinphils 0.2 thou/uL (0.0-0.7); #Lymphocytes 1.6 thou/uL (1.20-3.40); #Monocytes 0.4 thou/uL (0.11-0.59); #Neutrophils 4.1 thou/uL (1.40-6.50); %Basophils 1.2 % (0.0-1.0); %Eosinophils 3.4 % (0.0-10.0); %Lymphocytes 25.6 % (21.0-51.0); %Monocytes 6.1 % (0.0-10.0); %Neutrophils 63.7 % (42.0-75.0); Hemoglobin 11.4 g/dL (14.0-18.0); Mean Corpuscular HGB CONC 34.8 g/dL (32.0-36.0); Mean Corpuscular Volume 83.5 fL (78.0-98.0); Mean Platelet Volume 7.2 fL (7.4-10.4); Platelet Count 290 thou/uL (130-400); RBC Distribution Width 11.7 % (11.5-14.5); Red Blood Cell (RBC) Count 3.91 mill/uL (4.70-6.10); White Blood Cell (WBC) Count 6.4 thou/uL (4.8-10.8)
--- NOTE | 2018-07-12 14:00 | RAD ---
RIGHT FOOT THREE VIEWS: INDICATIONS: Toe infection. COMPARISON: 12/20/2017 FINDINGS/IMPRESSION: Since the comparison examination, there has been interval partial ray amputation of the great toe. T here is soft tissue swelling overlying the amputation site. There is some slight irregularity involv ing the residual distal metatarsal head, which may reflect residual osteomyelitis. Lisfranc alignmen t is preserved. Enthesophyte change is seen of the calcaneus. IMPRESSION: 1. Cortical irregularity involving the residual distal great toe metatarsal head, suspicious for res idual osteomyelitis. 2. Soft tissue swelling seen surrounding the amputation site of the great toe. POS: [facility]
[2018-07-12 14:17] LABS: ALT (SGPT) 12 U/L (8-55); AST (SGOT) 13 U/L (5-34); Alkaline Phosphatase 127 U/L (40-150); Anion Gap 13 mmol/L (10-20); BUN (Urea Nitrogen) 16 mg/dL (8.4-25.7); Bilirubin, Total 0.3 mg/dL (0.2-1.2); Calc. Creatinine Clearance 0 mL/min (70-130); Calcium 8.6 mg/dL (7.8-10.44); Carbon Dioxide 17 mmol/L (22-29); Chloride 108 mmol/L (98-107); Estimated GFR-MDRD 54; Globulin 3.3 g/dL (2.4-3.5); Glucose 320 mg/dL (70-105); Potassium 3.9 mmol/L (3.5-5.1); Protein, Total 7.3 g/dL (6.0-8.3); Sodium 134 mmol/L (136-145)
[2018-07-12] MEDS ORDERED: Sodium Chloride 0.9% 100 ML ONE (14:49)
[2018-07-12] MEDS ORDERED: Piperacillin/Tazobactam 3.375 GM VIAL ONE (14:49)
[2018-07-12] MEDS ORDERED: Acetaminophen 325 MG TAB PO PRN (15:39)
[2018-07-12] MEDS ORDERED: Bisacodyl 5 MG TAB PO PRN (15:39)
[2018-07-12] MEDS ORDERED: Ondansetron ODT 4 MG TAB PO PRN (15:39)
[2018-07-12] MEDS ORDERED: Zolpidem Tartrate 5 MG TAB PO PRN (15:39)
[2018-07-12] MEDS ORDERED: Dextrose 50% Abboject 50 ML SYRINGE SLOW IVP PRN (15:43)
[2018-07-12] MEDS ORDERED: Dextrose 5% in Water 1,000 ML IV PRN (15:43)
[2018-07-12] MEDS ORDERED: Vancomycin HCl 1.5 GM in Sodium Chloride 0.9% 250 ML 300 ML IVPB SCH ×2 (15:45→16:30)
[2018-07-12] MEDS ORDERED: HYDROcodone/Acetaminophen 5/325 mg Tablet ONE (17:52)
--- NOTE | 2018-07-12 21:31 | ULT ---
RIGHT LOWER EXTREMITY ARTERIAL ULTRASOUND: History: Right toe infection. Technique: Multiplanar grayscale and color doppler images were obtained in a right lower extremity ar terial ultrasound. Spectral analysis of the doppler waveforms were performed. FINDINGS: There are triphasic waveforms seen throughout. No atherosclerotic plaque is seen within the visualize d arteries of the right leg. No significant increase in velocity is seen from one segment to the next to suggest focal atherosclerotic disease. The common femoral artery, superficial femoral artery, pop liteal artery, posterior tibial artery, anterior tibial artery and dorsalis pedis artery were evaluat ed. IMPRESSION: Unremarkable right lower extremity arterial ultrasound. POS: [facility]
[2018-07-12] MEDS: Piperacillin/Tazobactam 3.375 GM in Sodium Chloride 0.9% 100 ML IVPB SCH (22:09)
[2018-07-12 22:19] VITALS: BMI 30.8
[2018-07-12] MEDS: HYDROcodone/Acetaminophen 5/325 mg Tablet PO PRN (23:51)
[2018-07-13] MEDS: Piperacillin/Tazobactam 3.375 GM in Sodium Chloride 0.9% 100 ML IVPB SCH ×4 (03:18→21:06)
[2018-07-13 05:39] LABS: #Basophils 0.1 thou/uL (0.0-0.2); #Eosinphils 0.3 thou/uL (0.0-0.7); #Lymphocytes 2.3 thou/uL (1.20-3.40); #Monocytes 0.5 thou/uL (0.11-0.59); #Neutrophils 3.3 thou/uL (1.40-6.50); %Basophils 1.1 % (0.0-1.0); %Eosinophils 5.1 % (0.0-10.0); %Lymphocytes 35.3 % (21.0-51.0); %Neutrophils 51.5 % (42.0-75.0); Hemoglobin 10.3 g/dL (14.0-18.0); Mean Corpuscular HGB CONC 34.8 g/dL (32.0-36.0); Mean Corpuscular Hemoglobin 28.7 pg (27.0-31.0); Mean Corpuscular Volume 82.4 fL (78.0-98.0); Mean Platelet Volume 7.4 fL (7.4-10.4); Platelet Count 268 thou/uL (130-400); RBC Distribution Width 11.5 % (11.5-14.5); Red Blood Cell (RBC) Count 3.58 mill/uL (4.70-6.10); White Blood Cell (WBC) Count 6.4 thou/uL (4.8-10.8)
[2018-07-13 05:48] LABS: Anion Gap 10 mmol/L (10-20); BUN (Urea Nitrogen) 15 mg/dL (8.4-25.7); Calc. Creatinine Clearance 91 mL/min (70-130); Calcium 8.4 mg/dL (7.8-10.44); Carbon Dioxide 21 mmol/L (22-29); Chloride 109 mmol/L (98-107); Estimated GFR-MDRD 59; Glucose 188 mg/dL (70-105); Potassium 3.7 mmol/L (3.5-5.1); Sodium 136 mmol/L (136-145)
[2018-07-13] MEDS: HYDROcodone/Acetaminophen 5/325 mg Tablet PO PRN ×5 (06:30→23:42)
--- NOTE | 2018-07-13 07:51 | HP ---
CHIEF COMPLAINT: Non-healing ulcer at the stump of the right great toe, status post amputation. HISTORY OF PRESENTING ILLNESS: This is a 53-year-old gentleman with history of diabetes, who underwent right great toe amputation some time ago that got infected, for which he treated with antibiotics and due to the non-healing nature of the toe stump, the patient had to undergo wound VAC treatment. Subsequently, the patient responded well and he was discharged from the wound care people. The past 3 weeks, the patient started noticing a small ulcer that has increased to a quarter size right now with a foul-smelling discharge at the base of the right great toe previously amputated site. The symptoms are worsening and with increased foul-smelling discharge. No fever or chills reported. PAST MEDICAL HISTORY: Significant for diabetes type 2. PAST SURGICAL HISTORY: Significant for amputation of the left pointer finger due to an accident, left great toe amputation in December 2017 with a non-healing ulcer. PSYCHIATRIC HISTORY: No previous psychiatric history. SOCIAL HISTORY: The patient denies any alcohol use. He is a former drug user, abused cocaine, abused meth. The patient is a former tobacco user. He used to chew tobacco. KNOWN ALLERGIES: The patient is allergic to sulfonamide antibiotics. REVIEW OF SYSTEMS: CONSTITUTIONAL: The patient denies any fevers or chills. HEENT: The patient denies any discharge or eye pain. Denies any discharge from the ears or the ear pain. NECK: Denies any pain in the neck. CARDIOVASCULAR: The patient denies any chest pain or palpitations. RESPIRATORY: The patient denies any shortness of breath or wheezing. MUSCULOSKELETAL: Please see HPI. GENITOURINARY: The patient denies any dysuria or urgency. SKIN: Please see HPI. NEUROLOGIC: The patient denies any neurological deficits. No focal deficits have been mentioned. PHYSICAL EXAMINATION: VITAL SIGNS: Blood pressure is 171/90, pulse 97, respiratory rate 16, temperature 97.9. Pain on the left great toe is around 6. O2 saturations on room air is around 95%. Vital signs are reviewed. The patient is afebrile. Pulse and blood pressures are within normal limits. HEENT: The patient is normocephalic and atraumatic head. External ears and tympanic membranes are within normal limits. Eyelids and conjunctivae are within normal limits. Pupils are round and reactive to light. NECK: There is no pain in the normal range of motion of the neck. Trachea is midline. RESPIRATORY/CHEST: Good airway entry into both lungs. No wheezes. No rales. CARDIOVASCULAR: The patient has a regular rate and rhythm. No murmurs. No gallops. ABDOMEN: Soft, nontender, and nondistended. No masses. Positive bowel sounds. MUSCULOSKELETAL: A quarter-size non-healing ulcer at the base of the amputated great toe on the right side. The base of the wound looks necrotic and is very foul smelling. NEUROLOGIC: Within normal limits. There are no cranial deficits. No motor or sensory deficits noted. RADIOLOGY: The foot film shows: 1. Cortical irregularity involving the residual distal great toe metatarsal head , suspicious for residual osteomyelitis. 2. Soft tissue swelling seen around the amputation site of the great toe. ASSESSMENT AND PLAN: 1. Non-healing diabetic foot ulcer, status post amputation of the right great toe. The patient will be admitted for IV antibiotics and further debridement of the ulcer as required by Surgery. 2. We will obtain right lower extremity arterial Dopplers to assess the blood flow. 3. Continue the IV antibiotics and pain control. 4. We will continue the home glipizide for diabetes along with sliding scale and diabetic diet. 5. We will continue the lisinopril for the patient's hypertension. Job ID: [id number] [facility]
[2018-07-13] MEDS: Enoxaparin Sodium 40 MG/0.4 ML SYRINGE SC SCH (08:53)
[2018-07-13] MEDS: Insulin Regular 300 UNITS/3 ML VIAL SC PRN (12:02)
--- NOTE | 2018-07-13 19:03 | MRI ---
MRI RIGHT FOREFOOT WITH AND WITHOUT IV CONTRAST: 07/13/2018 PROVIDED CLINICAL HISTORY: Great toe amputation in December. Open wound and pus at the end of the amputation. FINDINGS: There is decreased signal intensity on T1 weighted sequences and increased signal intensity on fluid sensitive sequences, involving the second metatarsal head. There is corresponding contrast enhanceme nt, to a mild degree. Postoperative changes of amputation of the great toe are noted, with minimal n onspecific signal alteration within the distal aspects of the first metatarsal. There is no evidence for a focal fluid collection to suggest abscess. There is nonspecific signal alteration on fluid se nsitive sequences, involving the intrinsic foot musculature, surrounding the distal second and third metatarsals. No significant regional tenosynovial fluid is evident. No regional joint effusion is e vident. IMPRESSION: 1. Findings compatible with osteomyelitis involving the second metatarsal head. 2. Nonspecific signal alteration involving the intrinsic foot musculature surrounding the distal s econd and third metatarsals. This could infectious myositis. POS: OFF
--- NOTE | 2018-07-13 20:12 | PDOC.PN ---
- Subjective Encounter Start Date: 07/13/18 Encounter Start Time: 19:50 Subjective: f/u for DM R foot osteo involving R 2nd metatarsal. Receiving Zosyn -: currently. - Objective Resuscitation Status - Order Detail: 07/12/18 15:39 Resuscitation Status Routine Resuscitation Status: FULL: Full Resuscitation MAR Reviewed: Yes Vital Signs & Weight: Vital Signs (12 hours) Temp Pulse Resp BP Pulse Ox 07/13/18 20:00 98 F 81 16 161/89 H 99 07/13/18 16:25 98.3 F 88 16 155/92 H 95 07/13/18 10:54 97.8 F 79 18 135/83 99 Weight Weight 215 lb I&O: 07/12/18 07/13/18 07/14/18 06:59 06:59 06:59 Intake Total 650 Balance 650 Result Diagrams: 07/13/18 04:40 07/13/18 04:40 Additional Labs: Accuchecks 07/13/18 07/13/18 07/13/18 16:20 10:58 04:17 POC Glucose 109 159 H 163 H Radiology Reviewed by me: Yes (R foot MRI - osteo 2nd metatarsal head, +myositis ) Phys Exam - Physical Examination Constitutional: NAD HEENT: PERRLA, sclera anicteric, oral pharynx no lesions Neck: no nodes, no JVD, supple, full ROM Respiratory: no wheezing, no rales, no rhonchi, clear to auscultation bilateral S1, S2 Cardiovascular: RRR, no significant murmur, no rub, gallop Gastrointestinal: soft, non-tender, no distention, positive bowel sounds R foot s/p amputation great toe with granulating ulcer, +malodorous no expressible purulence Musculoskeletal: pulses present, edema present Neurological: normal sensation, moves all 4 limbs Psychiatric: normal affect, A&O x 3 Skin: normal turgor, cap refill <2 seconds Dx/Plan (1) Osteomyelitis of foot, right, acute Code(s): M86.171 - OTHER ACUTE OSTEOMYELITIS, RIGHT ANKLE AND FOOT Status: Acute Comment: Acute/subacute involving R second metatarsal head, continue Vanc/Zosyn, Gen surgery consult for I&D, WCT consult (2) Diabetic foot infection Code(s): E11.628 - TYPE 2 DIABETES MELLITUS WITH OTHER SKIN COMPLICATIONS; L08.9 - LOCAL INFECTION OF THE SKIN AND SUBCUTANEOUS TISSUE, UNSP Status: Acute Comment: s/p Rt great toe amputation 12/23/17, see #1 above (3) DM2 (diabetes mellitus, type 2) Status: Chronic Qualifiers: Diabetes mellitus complication status: with hyperglycemia Comment: Poor control given DM foot infections and labile glucose, continue home regimen and titrate for optimal response, ADA, last A1C 10.2 in December 2017 (4) CKD (chronic kidney disease), stage III Code(s): N18.3 - CHRONIC KIDNEY DISEASE, STAGE 3 (MODERATE) Status: Chronic Comment: avoid nephrotoxic meds and limit contrast exposure - Plan continue antibiotics, social worker masters Stable currently -: Consult with Gen Surgery pending -: WCT consult for local care R foot -: Resume Glipizide -: AM lab: BMP * .
[2018-07-13] MEDS: Vancomycin HCl 1.5 GM in Sodium Chloride 0.9% 250 ML 300 ML IVPB SCH (23:43)
--- NOTE | 2018-07-14 03:06 | CON ---
DATE OF CONSULTATION: REASON FOR CONSULT: Right great toe wound with possible osteomyelitis. HISTORY: Mr. Ibarra is a 53-year-old man, who underwent a ray amputation of the right great toe several months ago by myself. He healed well. He had a VAC initially and [facility]. Two weeks ago, they discharged him from the [facility], stating that his wound had completely healed and he states that it looked really good at that time. Shortly after that, he went out into the field to [place] and was on his feet all day long. After that, he noticed some odor and drainage from his wound, which has gotten worse. He has also had some swelling of the foot, but has not had any fevers or chills. He came in to the emergency room. A foot x-ray showed some lucency of the distal metatarsal head, worrisome for possible osteomyelitis. PAST MEDICAL HISTORY: Diabetes. PAST SURGICAL HISTORY: Nontraumatic amputation of a finger and left great toe amputation in December for a nonhealing ulcer and diabetic foot infection. SOCIAL HISTORY: The patient is a former smoker and also used cocaine and meth in the past, but has not for many years. He denies any alcohol use. ALLERGIES: SULFA DRUGS. MEDICATIONS: Outpatient medications include glipizide and metformin. Inpatient medications include Zosyn, vancomycin, sliding scale insulin, Lovenox, and multiple p.r.n.'s. REVIEW OF SYSTEMS: Ten system review of systems is negative except for HPI. PHYSICAL EXAMINATION: VITAL SIGNS: The patient is afebrile with normal vital signs. GENERAL: Reveals a healthy-appearing man, in no acute distress. He is not flushed or toxic in appearance. He is not jaundiced or icteric. HEENT: Unremarkable. NECK: Supple without lymphadenopathy or thyroid nodules. HEART: Regular in its rate and rhythm without murmurs, rubs or gallops. LUNGS: Clear to auscultation bilaterally. ABDOMEN: Soft, nontender, and nondistended. EXTREMITIES: Warm and well perfused with normal pedal pulses. He does have some mild swelling of his right forefoot and his second toe is slightly red compared to the others. He has a wound with some scabbing and heaped up skin along the edges, but no expressible drainage. There is some odor to the area. I did a sharp excisional debridement of the skin on the right toe at the metatarsal amputation site and the base of the wound appeared clean. There was no visible drainage tract into the deep tissues and no expressible drainage. The wound was dressed with bacitracin and gauze. IMPRESSION AND PLAN: Due to the swelling in the foot and concerning findings on x-ray, I ordered an MRI of the foot, which has been performed, but the report is not yet back. I will make the patient n.p.o. after midnight in the event that he requires surgical debridement. However, without an open wound unless there is an abscess or some other drainable site, he may be better served by long-term antibiotics. Job ID: [id number]
[2018-07-14] MEDS: Piperacillin/Tazobactam 3.375 GM in Sodium Chloride 0.9% 100 ML IVPB SCH ×4 (03:49→21:12)
[2018-07-14] MEDS: HYDROcodone/Acetaminophen 5/325 mg Tablet PO PRN ×5 (05:12→21:11)
[2018-07-14 06:08] LABS: Anion Gap 10 mmol/L (10-20); BUN (Urea Nitrogen) 12 mg/dL (8.4-25.7); Calc. Creatinine Clearance 92 mL/min (70-130); Calcium 8.9 mg/dL (7.8-10.44); Carbon Dioxide 22 mmol/L (22-29); Chloride 110 mmol/L (98-107); Estimated GFR-MDRD 60; Glucose 135 mg/dL (70-105); Sodium 138 mmol/L (136-145)
[2018-07-14] MEDS: glipiZIDE 5 MG TAB PO SCH (07:55)
[2018-07-14] MEDS: Bacitracin Zinc 1 Packet TOP SCH (07:55)
[2018-07-14] MEDS: Enoxaparin Sodium 40 MG/0.4 ML SYRINGE SC SCH (07:55)
[2018-07-14] MEDS: Vancomycin HCl 1.5 GM in Sodium Chloride 0.9% 250 ML 300 ML IVPB SCH ×2 (12:17→23:31)
--- NOTE | 2018-07-14 17:34 | PDOC.PN ---
- Subjective Encounter Start Date: 07/14/18 Encounter Start Time: 13:00 Patient seen and examined for Osteomyelitis. No fever/chills. No new complaints. No overnight events - Objective Resuscitation Status - Order Detail: 07/12/18 15:39 Resuscitation Status Routine Resuscitation Status: FULL: Full Resuscitation MAR Reviewed: Yes Vital Signs & Weight: Vital Signs (12 hours) Temp Pulse Resp BP Pulse Ox 07/14/18 08:02 97.9 F 84 18 156/96 H 98 Weight Admit Weight 215 lb Weight 215 lb I&O: 07/13/18 07/14/18 07/15/18 06:59 06:59 06:59 Intake Total 650 Balance 650 Result Diagrams: 07/13/18 04:40 07/14/18 04:48 Additional Labs: Accuchecks 07/14/18 07/14/18 07/14/18 16:35 10:52 04:54 POC Glucose 144 H 126 H 137 H 07/13/18 19:59 POC Glucose 210 H Radiology Reviewed by me: Yes (MRI foot - Rt foot Osteomyelitis) Phys Exam - Physical Examination Constitutional: NAD Respiratory: no wheezing, no rhonchi Cardiovascular: RRR, no rub Gastrointestinal: soft, non-tender, positive bowel sounds Musculoskeletal: no edema Rt foot dressing + Dx/Plan - Plan DVT proph w/SCDs 1. Rt foot Osteomyelitis with Cellulitis 2. DM2 3. Obesity BMI 30.8 4. CKD 2 5. Anemia - Probably chronic PLAN: Cont Vancomycin/Zosyn Cont Glipizide Cont Sliding scale AM labs Microbiology 07/12/18 13:49 Venous blood - Right Hand Blood Culture - Preliminary NO GROWTH AT 48 HOURS 07/12/18 13:43 Venous blood - Right Arm Blood Culture - Preliminary NO GROWTH AT 48 HOURS Review of Systems - Review of Systems Respiratory: negative: Cough, Dry, Shortness of Breath, Hemoptysis, SOB with Excertion, Pleuritic Pain, Sputum, Wheezing Cardiovascular: negative: chest pain, palpitations, orthopnea, paroxysmal nocturnal dyspnea, edema, light headedness, other - Medications/Allergies Allergies/Adverse Reactions: Allergies Allergy/AdvReac Type Severity Reaction Status Date / Time No Known Allergies Allergy Unverified 01/28/18 19:57 Medications: Current Medications Acetaminophen (Tylenol) 650 mg PO Q4H PRN PRN Reason: Headache/Fever/Mild Pain (1-3) Hydrocodone Bitart/Acetaminophen ([place] 5/325) 1 tab PO Q4H PRN PRN Reason: Moderate Pain (4-6) Last Admin: 07/14/18 17:11 Dose: 1 tab Bacitracin Zinc (Bacitracin) 1 pk TOP QAM [facility] Last Admin: 07/14/18 07:55 Dose: 1 pk Bisacodyl (Dulcolax) 10 mg PO DAILYPRN PRN PRN Reason: Constipation Dextrose/Water (Dextrose 50%) 25 gm SLOW IVP PRN PRN PRN Reason: Hypoglycemia Enoxaparin Sodium (Lovenox) 40 mg SC 0900 [facility] Last Admin: 07/14/18 07:55 Dose: 40 mg Glipizide (Glucotrol) 5 mg PO DAILY-[facility] Last Admin: 07/14/18 07:55 Dose: 5 mg Glucagon (Glucagon) 1 mg IM PRN PRN PRN Reason: Hypoglycemia Dextrose/Water (D5w) 1,000 mls @ 0 mls/hr IV .Q0M PRN PRN Reason: Hypoglycemia Piperacillin Sod/Tazobactam (Sod 3.375 gm/ Sodium Chloride) 100 mls @ 200 mls/ hr IVPB 0300,0900,1500,2100 [facility] Last Admin: 07/14/18 15:10 Dose: 100 mls Vancomycin HCl 1.5 gm/ Sodium (Chloride) 300 mls @ 200 mls/hr IVPB 1200,2359 [facility] Last Admin: 07/14/18 12:17 Dose: 300 mls Insulin Human Regular (Humulin R) 0 units SC .MODERATE SLIDING SC PRN PRN Reason: Moderate Correctional Scale Last Admin: 07/13/18 12:02 Dose: 2 unit Ondansetron HCl (Zofran Odt) 4 mg PO Q6H PRN PRN Reason: Nausea/Vomiting Sodium Chloride (Flush - Normal Saline) 10 ml IVF Q12HR [facility] Last Admin: 07/14/18 07:55 Dose: 10 ml Sodium Chloride (Flush - Normal Saline) 10 ml IVF PRN PRN PRN Reason: Saline Flush Last Admin: 07/13/18 21:08 Dose: 10 ml Zolpidem Tartrate (Ambien) 5 mg PO HSPRN PRN PRN Reason: Insomnia
--- NOTE | 2018-07-14 22:59 | CON ---
DATE OF CONSULTATION: 07/14/2018 REASON FOR CONSULTATION: Right foot inflammatory process. HISTORY OF PRESENT ILLNESS: This is a 53-year-old patient whom I had seen in January 2018 when he presented with a history of type 2 diabetes, methamphetamine use, and prior treatment for osteomyelitis of the right hallux with amputation at the MPJ site. Impression then was there was recurrence of inflammatory process. Vascular supply appeared to be adequate. There was evidence of exposed bone and Dr. Conde performed removal of all the infected-appearing fibrotic tissues and wound was irrigated and packed. Cultures at that time revealed methicillin-susceptible Staphylococcus aureus, Streptococcus, Achromobacter, Morganella and there was another sample with methicillin-resistant Staphylococcus aureus, Enterococcus and two different gram negatives. He is admitted now with healing of the wound. Over the past three weeks before admission, he developed a small ulceration, which increased in size, associated with foul odor and discharge from the base of the amputation site. No headaches, visual symptoms, sore throat, odynophagia or dysphagia. No cough or sputum production. No chest pain. No abdominal pain or diarrhea. No other joint symptoms. PAST MEDICAL HISTORY: Type 2 diabetes, prior right first toe amputation. SOCIAL HISTORY: Former methamphetamine and cocaine use by the inhaled route. Former smoker. ALLERGIES: SULFONAMIDE, ANTIMICROBIALS. FAMILY HISTORY: Noncontributory. CURRENT MEDICATIONS: 1. Tylenol. 2. [place]. 3. Bacitracin. 4. Dulcolax. 5. Lovenox. 6. Glucagon. 7. Zosyn. 8. Vancomycin. PHYSICAL EXAMINATION: VITAL SIGNS: Temperature max 98.3. Other vital signs are not remarkable. SKIN: Exam shows the area of ulceration at the base of the previous amputation site in the right medial foot. There is a yellow scab or callus formation around the wound. The wound is irregular shaped and quite shallow. The base of the wound appears to have mostly skin with a little bit of red tissue in the middle section. There is an element of swelling of the second toe. LYMPHATICS: No lymphadenopathy. Ocular movements conjugate. Oral cavity normal. NECK: Supple. LUNGS: Symmetric. Clear breath sounds. HEART: S1 and S2, regular rate. No S3 or S4. ABDOMEN: Soft, not distended or tender. No ascites, no bladder distention. EXTREMITIES: Pulses are 1+ in dorsalis pedis. Capillary refill is normal. Plantar responses are flexor. PSYCH: Cognitive function appears to be intact. LABORATORY DATA: White cell count 6.4, hemoglobin 11, platelets 290 with 63% neutrophils, and a chemistry with a creatinine of 1.26, which is better than on admission. AST 13, ALT 12, alkaline phosphatase 127, albumin 4.0. Cultures from the blood, no growth at 48 hours. The patient had a lower extremity x-ray, which demonstrated cortical irregularity in the residual distal great toe metatarsal head and lower extremity. MRI with decreased signal intensity on T1 sequences and increased signal intensity on T2 sequences in the second metatarsal head with some contrast enhancement, which is mild. There is minimal nonspecific signal alteration within the distal aspects of the first metatarsal. No fluid collection noted. ASSESSMENT: Type 2 diabetes with prior amputation of the first toe on the right side at the metatarsophalangeal joints level now with recrudescence of the ulceration with drainage and some imaging findings that are concerning regarding the possibility of osteomyelitis. DISCUSSION: Since there is no destructive changes in the plain films, I would recommend antimicrobial therapy with IV Invanz and vancomycin, or Invanz and daptomycin. End date of tx around Aug 28, weekly labs cbc,crp, cmp and either vanco troughs or cpk depending on the choice of Vancomycin or Daptomycin. Job ID: [id number] [facility]
[2018-07-15] MEDS: Piperacillin/Tazobactam 3.375 GM in Sodium Chloride 0.9% 100 ML IVPB SCH ×4 (03:22→20:50)
[2018-07-15] MEDS: HYDROcodone/Acetaminophen 5/325 mg Tablet PO PRN ×4 (03:25→18:22)
[2018-07-15 06:55] LABS: #Basophils 0.1 thou/uL (0.0-0.2); #Eosinphils 0.3 thou/uL (0.0-0.7); #Lymphocytes 1.9 thou/uL (1.20-3.40); #Monocytes 0.4 thou/uL (0.11-0.59); #Neutrophils 2.8 thou/uL (1.40-6.50); %Basophils 1.1 % (0.0-1.0); %Eosinophils 5.3 % (0.0-10.0); %Lymphocytes 35.5 % (21.0-51.0); %Monocytes 6.6 % (0.0-10.0); %Neutrophils 51.5 % (42.0-75.0); Mean Corpuscular HGB CONC 33.6 g/dL (32.0-36.0); Mean Corpuscular Hemoglobin 27.6 pg (27.0-31.0); Mean Corpuscular Volume 82.1 fL (78.0-98.0); Mean Platelet Volume 7.2 fL (7.4-10.4); Platelet Count 259 thou/uL (130-400); RBC Distribution Width 11.5 % (11.5-14.5); Red Blood Cell (RBC) Count 3.97 mill/uL (4.70-6.10); White Blood Cell (WBC) Count 5.4 thou/uL (4.8-10.8)
[2018-07-15 07:15] LABS: Anion Gap 10 mmol/L (10-20); BUN (Urea Nitrogen) 13 mg/dL (8.4-25.7); Calc. Creatinine Clearance 84 mL/min (70-130); Calcium 8.9 mg/dL (7.8-10.44); Carbon Dioxide 24 mmol/L (22-29); Chloride 109 mmol/L (98-107); Estimated GFR-MDRD 54; Glucose 143 mg/dL (70-105); Potassium 3.9 mmol/L (3.5-5.1); Sodium 139 mmol/L (136-145)
[2018-07-15] MEDS: Bacitracin Zinc 1 Packet TOP SCH (08:13)
[2018-07-15] MEDS: glipiZIDE 5 MG TAB PO SCH (08:13)
[2018-07-15] MEDS: Vancomycin HCl 1.5 GM in Sodium Chloride 0.9% 250 ML 300 ML IVPB SCH (11:33)
[2018-07-15] MEDS: Insulin Regular 300 UNITS/3 ML VIAL SC PRN (11:37)
[2018-07-15 12:15] LABS: Vancomycin, Trough 24.5 ug/mL
--- NOTE | 2018-07-15 14:40 | PDOC.PN ---
- Subjective Encounter Start Date: 07/15/18 Encounter Start Time: 10:00 Patient seen and examined for Osteomyelitis. No new fever/chills. No new complaints. No overnight events - Objective Resuscitation Status - Order Detail: 07/12/18 15:39 Resuscitation Status Routine Resuscitation Status: FULL: Full Resuscitation MAR Reviewed: Yes Vital Signs & Weight: Vital Signs (12 hours) Temp Pulse Resp BP Pulse Ox 07/15/18 08:00 98 07/15/18 07:26 98.0 F 83 18 168/98 H 98 Weight Admit Weight 215 lb Weight 215 lb I&O: 07/14/18 07/15/18 07/16/18 06:59 06:59 06:59 Intake Total 650 Balance 650 Result Diagrams: 07/15/18 06:12 07/15/18 06:12 Additional Labs: Accuchecks 07/15/18 07/15/18 07/14/18 11:06 04:57 19:37 POC Glucose 178 H 154 H 154 H 07/14/18 16:35 POC Glucose 144 H Phys Exam - Physical Examination Constitutional: NAD Respiratory: no wheezing, no rhonchi Cardiovascular: RRR, no rub Gastrointestinal: soft, non-tender, positive bowel sounds Musculoskeletal: no edema foot dressing + Neurological: non-focal, moves all 4 limbs Dx/Plan - Plan DVT proph w/SCDs 1. Rt foot Osteomyelitis with Cellulitis 2. DM2 3. Obesity BMI 30.8 4. CKD 2 5. Anemia - Probably chronic PLAN: Cont current Atbx Cont Glipizide with Sliding scale AM labs Vancomycin with Invanz until Aug 28 Review of Systems - Review of Systems Respiratory: negative: Cough, Dry, Shortness of Breath, Hemoptysis, SOB with Excertion, Pleuritic Pain, Sputum, Wheezing Cardiovascular: negative: chest pain, palpitations, orthopnea, paroxysmal nocturnal dyspnea, edema, light headedness, other - Medications/Allergies Allergies/Adverse Reactions: Allergies Allergy/AdvReac Type Severity Reaction Status Date / Time No Known Allergies Allergy Unverified 01/28/18 19:57 Medications: Current Medications Acetaminophen (Tylenol) 650 mg PO Q4H PRN PRN Reason: Headache/Fever/Mild Pain (1-3) Hydrocodone Bitart/Acetaminophen ([place] 5/325) 1 tab PO Q4H PRN PRN Reason: Moderate Pain (4-6) Last Admin: 07/15/18 09:41 Dose: 1 tab Bacitracin Zinc (Bacitracin) 1 pk TOP QAM [facility] Last Admin: 07/15/18 08:13 Dose: 1 pk Bisacodyl (Dulcolax) 10 mg PO DAILYPRN PRN PRN Reason: Constipation Dextrose/Water (Dextrose 50%) 25 gm SLOW IVP PRN PRN PRN Reason: Hypoglycemia Glipizide (Glucotrol) 5 mg PO DAILY-[facility] Last Admin: 07/15/18 08:13 Dose: 5 mg Glucagon (Glucagon) 1 mg IM PRN PRN PRN Reason: Hypoglycemia Dextrose/Water (D5w) 1,000 mls @ 0 mls/hr IV .Q0M PRN PRN Reason: Hypoglycemia Piperacillin Sod/Tazobactam (Sod 3.375 gm/ Sodium Chloride) 100 mls @ 200 mls/ hr IVPB 0300,0900,1500,2100 [facility] Last Admin: 07/15/18 08:14 Dose: 100 mls Vancomycin HCl 1 gm/ Device 200 mls @ 200 mls/hr IVPB 1200,2359 [facility] Insulin Human Regular (Humulin R) 0 units SC .MODERATE SLIDING SC PRN PRN Reason: Moderate Correctional Scale Last Admin: 07/15/18 11:37 Dose: 2 unit Ondansetron HCl (Zofran Odt) 4 mg PO Q6H PRN PRN Reason: Nausea/Vomiting Sodium Chloride (Flush - Normal Saline) 10 ml IVF Q12HR [facility] Last Admin: 07/15/18 08:15 Dose: 10 ml Sodium Chloride (Flush - Normal Saline) 10 ml IVF PRN PRN PRN Reason: Saline Flush Last Admin: 07/13/18 21:08 Dose: 10 ml Zolpidem Tartrate (Ambien) 5 mg PO HSPRN PRN PRN Reason: Insomnia
[2018-07-16] MEDS: Piperacillin/Tazobactam 3.375 GM in Sodium Chloride 0.9% 100 ML IVPB SCH ×4 (03:03→21:03)
[2018-07-16] MEDS: HYDROcodone/Acetaminophen 5/325 mg Tablet PO PRN ×5 (04:14→21:03)
[2018-07-16] MEDS: glipiZIDE 5 MG TAB PO SCH (08:25)
[2018-07-16] MEDS: Bacitracin Zinc 1 Packet TOP SCH (10:23)
[2018-07-16] MEDS: Vancomycin HCl 1 GM in Premix Bag 1 BAG IVPB SCH (11:22)
--- NOTE | 2018-07-16 15:10 | PDOC.GSPN ---
Surgery Progress Note: Subj - Subjective Narrative: Patient feels fine. His right foot looks good. There is no expressible drainage erythema odor or open wound. His doctor's her setting up his outpatient IV antibiotics. He can follow up with Dr. Duque. I have recommended that he establish care with a contract administrative assistant. No need for routine surgical follow-up. Surgery Progress Note: Obj - Vital signs Vital signs: Vital Signs - Most Recent Temp Pulse Resp BP Pulse Ox 98.0 F 79 16 145/84 H 97 07/16/18 08:02 07/16/18 08:02 07/16/18 08:02 07/16/18 08:02 07/16/18 08:02 Surgery Progress Note: Results - Labs Result Diagrams: 07/15/18 06:12 07/15/18 06:12 Lab results: Laboratory Results - last 24 hr 07/16/18 04:50 POC Glucose 136 H
--- NOTE | 2018-07-16 22:11 | PDOC.PN ---
- Subjective Encounter Start Date: 07/16/18 Encounter Start Time: 10:30 Patient seen and examined for Osteomyelitis. No fever/chills. No new complaints. No overnight events - Objective Resuscitation Status - Order Detail: 07/12/18 15:39 Resuscitation Status Routine Resuscitation Status: FULL: Full Resuscitation MAR Reviewed: Yes Vital Signs & Weight: Vital Signs (12 hours) Temp Pulse Resp BP Pulse Ox 07/16/18 20:19 98.1 F 82 18 135/74 97 Weight Admit Weight 215 lb Weight 215 lb I&O: 07/15/18 07/16/18 07/17/18 06:59 06:59 06:59 Intake Total 650 Balance 650 Result Diagrams: 07/15/18 06:12 07/15/18 06:12 Additional Labs: Accuchecks 07/16/18 07/16/18 07/16/18 20:23 16:35 04:50 POC Glucose 215 H 149 H 136 H Phys Exam - Physical Examination Constitutional: NAD Respiratory: no wheezing, no rhonchi Cardiovascular: RRR, no rub Gastrointestinal: soft, non-tender, positive bowel sounds Musculoskeletal: no edema Neurological: moves all 4 limbs Dx/Plan - Plan DVT proph w/SCDs 1. Rt foot Osteomyelitis with Cellulitis 2. DM2 3. Obesity BMI 30.8 4. CKD 2 5. Anemia - Probably chronic PLAN: Cont Atbx Cont current meds as below Await outpt Atbx setup PICC line today Review of Systems - Review of Systems Respiratory: negative: Cough, Dry, Shortness of Breath, Hemoptysis, SOB with Excertion, Pleuritic Pain, Sputum, Wheezing Cardiovascular: negative: chest pain, palpitations, orthopnea, paroxysmal nocturnal dyspnea, edema, light headedness, other - Medications/Allergies Allergies/Adverse Reactions: Allergies Allergy/AdvReac Type Severity Reaction Status Date / Time No Known Allergies Allergy Unverified 01/28/18 19:57 Medications: Current Medications Acetaminophen (Tylenol) 650 mg PO Q4H PRN PRN Reason: Headache/Fever/Mild Pain (1-3) Hydrocodone Bitart/Acetaminophen ([place] 5/325) 1 tab PO Q4H PRN PRN Reason: Moderate Pain (4-6) Last Admin: 07/16/18 21:03 Dose: 1 tab Bacitracin Zinc (Bacitracin) 1 pk TOP QAM [facility] Last Admin: 07/16/18 10:23 Dose: Not Given Bisacodyl (Dulcolax) 10 mg PO DAILYPRN PRN PRN Reason: Constipation Dextrose/Water (Dextrose 50%) 25 gm SLOW IVP PRN PRN PRN Reason: Hypoglycemia Glipizide (Glucotrol) 5 mg PO DAILY-[facility] Last Admin: 07/16/18 08:25 Dose: 5 mg Glucagon (Glucagon) 1 mg IM PRN PRN PRN Reason: Hypoglycemia Dextrose/Water (D5w) 1,000 mls @ 0 mls/hr IV .Q0M PRN PRN Reason: Hypoglycemia Piperacillin Sod/Tazobactam (Sod 3.375 gm/ Sodium Chloride) 100 mls @ 200 mls/ hr IVPB 0300,0900,1500,2100 [facility] Last Admin: 07/16/18 21:03 Dose: 100 mls Vancomycin HCl 1 gm/ Device 200 mls @ 200 mls/hr IVPB 1200,2359 [facility] Last Admin: 07/16/18 11:22 Dose: 200 mls Insulin Human Regular (Humulin R) 0 units SC .MODERATE SLIDING SC PRN PRN Reason: Moderate Correctional Scale Last Admin: 07/15/18 11:37 Dose: 2 unit Ondansetron HCl (Zofran Odt) 4 mg PO Q6H PRN PRN Reason: Nausea/Vomiting Sodium Chloride (Flush - Normal Saline) 10 ml IVF Q12HR [facility] Last Admin: 07/16/18 21:04 Dose: 10 ml Sodium Chloride (Flush - Normal Saline) 10 ml IVF PRN PRN PRN Reason: Saline Flush Last Admin: 07/13/18 21:08 Dose: 10 ml Zolpidem Tartrate (Ambien) 5 mg PO HSPRN PRN PRN Reason: Insomnia
[2018-07-17] MEDS: Piperacillin/Tazobactam 3.375 GM in Sodium Chloride 0.9% 100 ML IVPB SCH ×4 (02:11→20:20)
[2018-07-17] MEDS: HYDROcodone/Acetaminophen 5/325 mg Tablet PO PRN ×5 (03:11→20:26)
[2018-07-17] MEDS: glipiZIDE 5 MG TAB PO SCH (07:40)
[2018-07-17] MEDS: Bacitracin Zinc 1 Packet TOP SCH (07:43)
[2018-07-17] MEDS ORDERED: Heparin 1,000 UNITS/ML VIAL ONE (11:11)
[2018-07-17] MEDS: Vancomycin HCl 1 GM in Premix Bag 1 BAG IVPB SCH ×2 (11:29)
--- NOTE | 2018-07-17 11:43 | SPC ---
LEFT UPPER EXTREMITY PICC LINE WITH RENAL ULTRASOUND GUIDANCE: HISTORY: Osteomyelitis of the foot. EXPOSURE: 0.6 minutes. 3250 mGy per cm2. FINDINGS: Successful left upper extremity PICC line placement with ultrasound guidance. There is a single-lume n, 5-Bruneian, 40-cm catheter with the distal tip in the superior vena cava. The catheter flushes and aspirates without difficulty. TECHNIQUE: Consent obtained to perform a left upper extremity PICC line with ultrasound guidance. The left arm was prepped and draped in the sterile fashion, and 1% Lidocaine, buffered with sodium bicarbonate, wa s used for local anesthesia. Under ultrasound guidance, a micropuncture needle was used to cannulate the brachial vein. A 0.018 guidewire was advanced through the needle, to the level of the superior vena cava. The tract was dilated. A single-lumen, 5-Bruneian catheter was advanced over the wire. Th e wire was removed. The catheter flushed and aspirated without difficulty. IMPRESSION: Successful left upper extremity peripherally inserted central catheter line placement with ultrasound guidance. The distal tip is in the region of the superior vena cava. POS: [facility]
[2018-07-17] MEDS ORDERED: Cyclobenzaprine 10 MG TAB PO SCH (12:30)
[2018-07-17] MEDS ORDERED: Morphine 2 MG/ML SYRINGE SLOW IVP SCH (12:30)
[2018-07-17] MEDS: Insulin Regular 300 UNITS/3 ML VIAL SC PRN (16:02)
[2018-07-17] MEDS: Ketorolac Tromethamine 30 MG/ML VIAL IVP PRN (17:21)
--- NOTE | 2018-07-17 20:47 | PDOC.PN ---
- Subjective Encounter Start Date: 07/17/18 Encounter Start Time: 13:00 Patient seen and examined for Osteomyelitis. Significant pain in Left arm after the PICC line. States that "they hit the nerve". No other complaints. No overnight events - Objective Resuscitation Status - Order Detail: 07/12/18 15:39 Resuscitation Status Routine Resuscitation Status: FULL: Full Resuscitation MAR Reviewed: Yes Vital Signs & Weight: Vital Signs (12 hours) Temp Pulse Resp BP Pulse Ox 07/17/18 19:28 98.1 F 77 20 150/84 H 96 Weight Admit Weight 215 lb Weight 215 lb Result Diagrams: 07/18/18 05:21 07/18/18 05:21 Additional Labs: Accuchecks 07/17/18 07/17/18 07/17/18 19:28 16:00 11:40 POC Glucose 207 H 217 H 158 H 07/17/18 07/16/18 04:39 20:23 POC Glucose 137 H 215 H Phys Exam - Physical Examination Constitutional: NAD Respiratory: no wheezing, no rhonchi Cardiovascular: RRR, no rub Gastrointestinal: soft, non-tender, positive bowel sounds Musculoskeletal: no edema Neurological: moves all 4 limbs Psychiatric: A&O x 3 Dx/Plan - Plan DVT proph w/SCDs 1. Rt foot Osteomyelitis with Cellulitis 2. DM2 3. Obesity BMI 30.8 4. CKD 2 5. Anemia - Probably chronic PLAN: Cont Atbx per ID DC later today if left arm pain improves Pain control Cont current meds as below Review of Systems - Review of Systems Respiratory: negative: Cough, Dry, Shortness of Breath, Hemoptysis, SOB with Excertion, Pleuritic Pain, Sputum, Wheezing Cardiovascular: negative: chest pain, palpitations, orthopnea, paroxysmal nocturnal dyspnea, edema, light headedness, other - Medications/Allergies Allergies/Adverse Reactions: Allergies Allergy/AdvReac Type Severity Reaction Status Date / Time No Known Allergies Allergy Unverified 01/28/18 19:57 Medications: Current Medications Acetaminophen (Tylenol) 650 mg PO Q4H PRN PRN Reason: Headache/Fever/Mild Pain (1-3) Hydrocodone Bitart/Acetaminophen ([place] 5/325) 1 tab PO Q4H PRN PRN Reason: Moderate Pain (4-6) Last Admin: 07/17/18 20:26 Dose: 1 tab Bacitracin Zinc (Bacitracin) 1 pk TOP QAM [facility] Last Admin: 07/17/18 07:43 Dose: 1 pk Bisacodyl (Dulcolax) 10 mg PO DAILYPRN PRN PRN Reason: Constipation Dextrose/Water (Dextrose 50%) 25 gm SLOW IVP PRN PRN PRN Reason: Hypoglycemia Glipizide (Glucotrol) 5 mg PO DAILY-AC [facility] Last Admin: 07/17/18 07:40 Dose: 5 mg Glucagon (Glucagon) 1 mg IM PRN PRN PRN Reason: Hypoglycemia Dextrose/Water (D5w) 1,000 mls @ 0 mls/hr IV .Q0M PRN PRN Reason: Hypoglycemia Piperacillin Sod/Tazobactam (Sod 3.375 gm/ Sodium Chloride) 100 mls @ 200 mls/ hr IVPB 0300,0900,1500,2100 [facility] Last Admin: 07/17/18 20:20 Dose: 100 mls Vancomycin HCl 1 gm/ Device 200 mls @ 200 mls/hr IVPB 1200,2359 [facility] Last Admin: 07/17/18 11:29 Dose: 200 mls Insulin Human Regular (Humulin R) 0 units SC .MODERATE SLIDING SC PRN PRN Reason: Moderate Correctional Scale Last Admin: 07/17/18 16:02 Dose: 2 unit Ketorolac Tromethamine (Toradol) 15 mg IVP Q6H PRN PRN Reason: Pain Stop: 07/22/18 12:21 Last Admin: 07/17/18 17:21 Dose: 15 mg Ondansetron HCl (Zofran Odt) 4 mg PO Q6H PRN PRN Reason: Nausea/Vomiting Sodium Chloride (Flush - Normal Saline) 10 ml IVF Q12HR [facility] Last Admin: 07/17/18 20:22 Dose: 10 ml Sodium Chloride (Flush - Normal Saline) 10 ml IVF PRN PRN PRN Reason: Saline Flush Last Admin: 07/13/18 21:08 Dose: 10 ml Zolpidem Tartrate (Ambien) 5 mg PO HSPRN PRN PRN Reason: Insomnia
[2018-07-17 23:36] LABS: Vancomycin, Trough 18.9 ug/mL
[2018-07-18] MEDS: Vancomycin HCl 1 GM in Premix Bag 1 BAG IVPB SCH ×2 (01:00→11:31)
[2018-07-18] MEDS: Piperacillin/Tazobactam 3.375 GM in Sodium Chloride 0.9% 100 ML IVPB SCH ×2 (03:34→08:09)
[2018-07-18] MEDS: Ketorolac Tromethamine 30 MG/ML VIAL IVP PRN ×2 (05:26→11:31)
[2018-07-18 06:10] LABS: #Basophils 0.1 thou/uL (0.0-0.2); #Eosinphils 0.2 thou/uL (0.0-0.7); #Monocytes 0.4 thou/uL (0.11-0.59); #Neutrophils 2.9 thou/uL (1.40-6.50); %Basophils 1.2 % (0.0-1.0); %Eosinophils 4.4 % (0.0-10.0); %Lymphocytes 36.2 % (21.0-51.0); %Monocytes 6.4 % (0.0-10.0); %Neutrophils 51.9 % (42.0-75.0); Hemoglobin 11.7 g/dL (14.0-18.0); Mean Corpuscular HGB CONC 34.8 g/dL (32.0-36.0); Mean Corpuscular Hemoglobin 28.9 pg (27.0-31.0); Mean Corpuscular Volume 83.1 fL (78.0-98.0); Platelet Count 276 thou/uL (130-400); RBC Distribution Width 11.6 % (11.5-14.5); Red Blood Cell (RBC) Count 4.04 mill/uL (4.70-6.10); White Blood Cell (WBC) Count 5.6 thou/uL (4.8-10.8)
[2018-07-18 06:37] LABS: Anion Gap 11 mmol/L (10-20); BUN (Urea Nitrogen) 16 mg/dL (8.4-25.7); Calc. Creatinine Clearance 83 mL/min (70-130); Calcium 8.7 mg/dL (7.8-10.44); Carbon Dioxide 26 mmol/L (22-29); Chloride 105 mmol/L (98-107); Estimated GFR-MDRD 52; Glucose 146 mg/dL (70-105); Sodium 138 mmol/L (136-145)
[2018-07-18 07:42] VITALS: BP 138/85; TEMP 98
[2018-07-18] MEDS: glipiZIDE 5 MG TAB PO SCH (08:09)
[2018-07-18] MEDS: Bacitracin Zinc 1 Packet TOP SCH (08:10)
[2018-07-18] MEDS: HYDROcodone/Acetaminophen 5/325 mg Tablet PO PRN ×2 (08:10→11:32)
--- NOTE | 2018-07-18 13:34 | DIS ---
DATE OF ADMISSION: 07/12/2018 DATE OF DISCHARGE: 07/18/2018 DISCHARGE DISPOSITION: Home. FOLLOWUP: 1. Follow up with primary care physician, Dr. Corin Ocasio, in 1 week. 2. Follow up with Infectious Disease, Dr. Duque, as well as General Surgery, Dr. Conde, in 2 weeks. ALLERGIES: NO KNOWN DRUG ALLERGIES. DISCHARGE MEDICATIONS: 1. Daptomycin 600 mg daily until August 22. 2. Ciprofloxacin 500 mg two times a day as well as Flagyl 500 mg three times a day until August 22. All other home medications were left unchanged. Weekly CBC, CRP, CMP, and CPK are recommended. Primary care physician advised to follow. The patient was seen and examined on the day of discharge. Denies any new complaints. No chest pain, shortness of breath, or palpitations reported. BRIEF HOSPITAL COURSE: The patient is a 53-year-old male, who presented to the hospital on July 12, 2018, with nonhealing diabetic foot ulcer. He has a history of right great toe amputation. Please refer to the history and physical dated July 12, 2018, by Dr. Orellana for further details. The patient was admitted to the medical floor with a diagnosis of possible osteomyelitis. He underwent an MRI that showed findings compatible with osteomyelitis involving the second metatarsal head. He was evaluated by General Surgery, Dr. Conde, as well as Infectious Disease. He was advised to establish care with a transplant nurse practitioner. He will complete the antibiotics per Dr. Duque' recommendation as discussed above. A PICC line has been placed. Plan of care was discussed with the patient in detail, he stated understanding. FINAL DIAGNOSES: 1. Right foot osteomyelitis with cellulitis. 2. Diabetes mellitus, type 2. 3. Obesity with a BMI of 30.8. 4. Chronic kidney disease, stage 2. 5. Chronic anemia. 6. History of drug abuse in the past. He currently resides at a half-way house. PLAN: Plan of care was discussed with the patient in detail, he stated understanding. Job ID: [id number]
== END 2018-07-18 14:58 | disposition home or self-care (01) | DRG 638 ==
LOC: ERS 12:49 → T4-B 15:00
PROVIDERS: ADMIT Family Medicine; ATTEND Family Medicine
PROC: 02HV33Z Insertion of Infusion Device into Superior Vena Cava, Percutaneous Approach (ICD-10-PCS; principal; 2018-07-17)
PROC: B548ZZA Ultrasonography of Superior Vena Cava, Guidance (ICD-10-PCS; 2018-07-17)
DX: E11.621 Type 2 diabetes mellitus with foot ulcer (principal); L03.115 Cellulitis of right lower limb; M86.171 Other acute osteomyelitis, right ankle and foot; L97.519 Non-pressure chronic ulcer of other part of right foot with unspecified severity; E11.69 Type 2 diabetes mellitus with other specified complication; E66.9 Obesity, unspecified; Z68.30 Body mass index [BMI] 30.0-30.9, adult; E11.22 Type 2 diabetes mellitus with diabetic chronic kidney disease; N18.2 Chronic kidney disease, stage 2 (mild); E11.65 Type 2 diabetes mellitus with hyperglycemia; D64.9 Anemia, unspecified; Z88.2 Allergy status to sulfonamides; Z87.891 Personal history of nicotine dependence
CPT/HCPCS: 36415; 36416; 36569; 80048; 80053; 80202; 83605; 85025; 87040; 93923; 96365; 96366; 96367; C1751; J1644; J1650; J1815; J1885; J2270; J2543; J3370; J7050

== ENCOUNTER 2018-07-21 14:53 | Emergency (ER) | payer OTHER ==
[2018-07-21 15:39] LABS: #Basophils 0.1 thou/uL (0.0-0.2); #Eosinphils 0.3 thou/uL (0.0-0.7); #Lymphocytes 1.7 thou/uL (1.20-3.40); #Monocytes 0.4 thou/uL (0.11-0.59); #Neutrophils 3.5 thou/uL (1.40-6.50); %Basophils 1.4 % (0.0-1.0); %Eosinophils 4.4 % (0.0-10.0); %Lymphocytes 28.9 % (21.0-51.0); %Monocytes 6.9 % (0.0-10.0); %Neutrophils 58.4 % (42.0-75.0); Hemoglobin 12.6 g/dL (14.0-18.0); Mean Corpuscular HGB CONC 34.5 g/dL (32.0-36.0); Mean Corpuscular Hemoglobin 28.7 pg (27.0-31.0); Mean Corpuscular Volume 83.1 fL (78.0-98.0); Platelet Count 281 thou/uL (130-400); RBC Distribution Width 11.7 % (11.5-14.5); Red Blood Cell (RBC) Count 4.41 mill/uL (4.70-6.10); White Blood Cell (WBC) Count 5.9 thou/uL (4.8-10.8)
[2018-07-21 15:59] LABS: ALT (SGPT) 16 U/L (8-55); AST (SGOT) 13 U/L (5-34); Albumin 4.4 g/dL (3.5-5.0); Alkaline Phosphatase 98 U/L (40-150); Anion Gap 13 mmol/L (10-20); BUN (Urea Nitrogen) 21 mg/dL (8.4-25.7); Bilirubin, Total 0.5 mg/dL (0.2-1.2); Calc. Creatinine Clearance 0 mL/min (70-130); Calcium 9.5 mg/dL (7.8-10.44); Carbon Dioxide 22 mmol/L (22-29); Chloride 105 mmol/L (98-107); Estimated GFR-MDRD 50; Globulin 3.5 g/dL (2.4-3.5); Glucose 197 mg/dL (70-105); Potassium 4.2 mmol/L (3.5-5.1); Protein, Total 7.9 g/dL (6.0-8.3); Sodium 136 mmol/L (136-145)
[2018-07-21] MEDS ORDERED: HYDROcodone/Acetaminophen 10/325 mg Tablet ONE (17:21)
--- NOTE | 2018-07-21 20:50 | ULT ---
LEFT UPPER EXTREMITY VENOUS DUPLEX ULTRASOUND INCLUDING COLOR AND SPECTRAL DOPPLER IMAGIN07/21/18 HISTORY: 53-year-old male with history of left arm pain at the elbow since a PICC line placement in the left b asilic vein on Friday. The visualized internal jugular, subclavian, axillary, brachial, and radial and ulnar veins demonstra te phasic flow with normal compressibility and normal augmentation. There is intraluminal thrombus wi thin the cephalic vein at the level of the antecubital fossa. The basilic vein appeared normal with n ormal compressibility and no intraluminal thrombus. There was some bandage material overlying the PIC C line obscuring the basilic vein at the level of the antecubital fossa. IMPRESSION: Evidence for intraluminal thrombus involving the left cephalic vein at the level of the antecubital f murtaza. No evidence for deep venous thrombosis. POS: [facility]
== END 2018-07-21 19:30 | disposition home or self-care (01) ==
LOC: ERS 14:53
DX: T82.848A Pain due to vascular prosthetic devices, implants and grafts, initial encounter (principal); I82.612 Acute embolism and thrombosis of superficial veins of left upper extremity; E11.9 Type 2 diabetes mellitus without complications; Z87.891 Personal history of nicotine dependence; Z79.84 Long term (current) use of oral hypoglycemic drugs
CPT/HCPCS: 36415; J1642

== ENCOUNTER 2018-09-22 20:54 | Emergency (ER) | payer OTHER, SELFPAY ==
[2018-09-22] MEDS ORDERED: Morphine 4 MG/ML VIAL ONE (21:37)
[2018-09-22] MEDS ORDERED: Ondansetron PF 4 MG/2 ML Vial ONE ×2 (21:37→21:42)
[2018-09-22 21:43] LABS: #Basophils 0.1 thou/uL (0.0-0.2); #Eosinphils 0.2 thou/uL (0.0-0.7); #Lymphocytes 1.6 thou/uL (1.20-3.40); #Monocytes 0.6 thou/uL (0.11-0.59); #Neutrophils 4.4 thou/uL (1.40-6.50); %Basophils 0.8 % (0.0-1.0); %Eosinophils 2.9 % (0.0-10.0); %Monocytes 8.4 % (0.0-10.0); Mean Corpuscular HGB CONC 33.2 g/dL (32.0-36.0); Mean Corpuscular Hemoglobin 27.7 pg (27.0-31.0); Mean Corpuscular Volume 83.4 fL (78.0-98.0); Mean Platelet Volume 7.5 fL (7.4-10.4); Platelet Count 239 thou/uL (130-400); RBC Distribution Width 11.8 % (11.5-14.5); Red Blood Cell (RBC) Count 3.96 mill/uL (4.70-6.10); White Blood Cell (WBC) Count 6.7 thou/uL (4.8-10.8)
--- NOTE | 2018-09-22 21:49 | RAD ---
RIGHT FOOT THREE VIEWS: 09/22/18 COMPARISON: 07/12/18 study. HISTORY: Patient had amputation last December. Had a callus cut off and now is bleeding and has pus coming from it. Amputation of the great toe is again demonstrated. Slight irregularity to the distal aspect of the fi rst metatarsal is unchanged since the prior exam. I do not see any definite evidence for osteomyeliti s. No air is seen within the soft tissues. On the AP projection, there is what appears to be a disloc ation of the second toe with the proximal phalanx dislocated dorsally. IMPRESSION: 1. No evidence of osteomyelitis. 2. Dislocation of the second metatarsophalangeal joint. POS: [facility]
[2018-09-22 22:26] LABS: Anion Gap 14 mmol/L (10-20); BUN (Urea Nitrogen) 31 mg/dL (8.4-25.7); Calc. Creatinine Clearance 0 mL/min (70-130); Calcium 9.3 mg/dL (7.8-10.44); Carbon Dioxide 23 mmol/L (22-29); Chloride 104 mmol/L (98-107); Estimated GFR-MDRD 38; Glucose 110 mg/dL (70-105); Potassium 4.9 mmol/L (3.5-5.1); Sodium 136 mmol/L (136-145)
== END 2018-09-22 22:55 | disposition home or self-care (01) ==
LOC: ERS 20:54
DX: M79.674 Pain in right toe(s) (principal); E11.9 Type 2 diabetes mellitus without complications; F17.220 Nicotine dependence, chewing tobacco, uncomplicated; Z79.84 Long term (current) use of oral hypoglycemic drugs; Z79.899 Other long term (current) drug therapy
CPT/HCPCS: 80048; 85025; 85652; 86140; 96361; 96374; 96375; J2270; J2405

== ENCOUNTER 2018-10-13 13:50 | Inpatient (IN) | payer OTHER, SELFPAY ==
[~2018-10-13 13:50] MED LIST changes: +Heparin 1,000 UNITS/ML VIAL ONE; -Sodium Chloride 0.9% 15 ML NEB ONE
[2018-10-13] MEDS ORDERED: HYDROcodone/Acetaminophen 5/325 mg Tablet PO PRN (14:23)
[2018-10-13] MEDS ORDERED: Dextrose 50% Abboject 50 ML SYRINGE IVP PRN (14:24)
[2018-10-13] MEDS ORDERED: Dextrose 5% in Water 1,000 ML IV PRN (14:24)
[2018-10-13] MEDS ORDERED: Sodium Chloride 0.9% (PF) 10 ML VIAL FS PRN (14:27)
[2018-10-13] MEDS ORDERED: Pantoprazole 40 MG VIAL IVP SCH (14:30)
[2018-10-13] MEDS: HYDROcodone/Acetaminophen 5/325 mg Tablet PO PRN (14:53)
[2018-10-13] MEDS ORDERED: Vancomycin HCl 1.5 GM in Sodium Chloride 0.9% 250 ML 300 ML IVPB SCH (15:00)
[2018-10-13 15:07] LABS: #Eosinphils 0.1 thou/uL (0.0-0.7); #Monocytes 0.9 thou/uL (0.11-0.59); %Basophils 0.2 % (0.0-1.0); %Eosinophils 0.8 % (0.0-10.0); %Lymphocytes 7.9 % (21.0-51.0); %Monocytes 6.6 % (0.0-10.0); %Neutrophils 84.6 % (42.0-75.0); Hemoglobin 9.5 g/dL (14.0-18.0); Mean Corpuscular HGB CONC 33.6 g/dL (32.0-36.0); Mean Corpuscular Hemoglobin 28.4 pg (27.0-31.0); Mean Corpuscular Volume 84.5 fL (78.0-98.0); Mean Platelet Volume 7.5 fL (7.4-10.4); Platelet Count 272 thou/uL (130-400); RBC Distribution Width 11.8 % (11.5-14.5); Red Blood Cell (RBC) Count 3.36 mill/uL (4.70-6.10)
[2018-10-13 15:36] LABS: ALT (SGPT) 14 U/L (8-55); AST (SGOT) 13 U/L (5-34); Albumin 3.5 g/dL (3.5-5.0); Alkaline Phosphatase 120 U/L (40-150); Anion Gap 15 mmol/L (10-20); BUN (Urea Nitrogen) 29 mg/dL (8.4-25.7); Bilirubin, Total 0.2 mg/dL (0.2-1.2); Calc. Creatinine Clearance 52 mL/min (70-130); Calcium 9.4 mg/dL (7.8-10.44); Carbon Dioxide 18 mmol/L (22-29); Chloride 105 mmol/L (98-107); Estimated GFR-MDRD 35; Globulin 3.9 g/dL (2.4-3.5); Glucose 310 mg/dL (70-105); Potassium 4.4 mmol/L (3.5-5.1); Protein, Total 7.4 g/dL (6.0-8.3); Sodium 134 mmol/L (136-145)
[2018-10-13] MEDS: Piperacillin/Tazobactam 3.375 GM in Sodium Chloride 0.9% 100 ML IVPB SCH ×2 (15:42→19:43)
[2018-10-13] MEDS: Sodium Chloride 0.9% 1,000 ML IV SCH (15:42)
[2018-10-13] MEDS: Morphine 4 MG/ML VIAL SLOW IVP PRN ×4 (15:43→22:28)
[2018-10-13] MEDS: Insulin Regular 300 UNITS/3 ML VIAL SC PRN (16:27)
[2018-10-14] MEDS: Sodium Chloride 0.9% 1,000 ML IV SCH ×3 (01:55→20:13)
[2018-10-14] MEDS: Piperacillin/Tazobactam 3.375 GM in Sodium Chloride 0.9% 100 ML IVPB SCH ×4 (02:02→20:13)
[2018-10-14] MEDS: Morphine 4 MG/ML VIAL SLOW IVP PRN ×4 (03:03→17:31)
[2018-10-14] MEDS: Vancomycin HCl 1.25 GM in Sodium Chloride 0.9% 250 ML 250 ML IVPB SCH ×2 (03:03→16:11)
[2018-10-14] MEDS: Insulin Regular 300 UNITS/3 ML VIAL SC PRN ×2 (06:06→16:10)
[2018-10-14] MEDS ORDERED: Morphine 2 MG/ML SYRINGE ONE (08:32)
[2018-10-14] MEDS: Pantoprazole 40 MG VIAL IVP SCH (08:33)
[2018-10-14] MEDS ORDERED: Morphine 4 MG/ML VIAL ONE (08:35)
[2018-10-14] MEDS ORDERED: Bupivacaine/Epinephrine 0.25% 30 ML VIAL ONE (09:12)
[2018-10-14] MEDS ORDERED: Bacitracin Zinc Ointment 30 gm TUBE ONE (09:13)
[2018-10-14] MEDS ORDERED: Fentanyl 100 MCG/2 ML VIAL ONE ×3 (09:20→11:44)
[2018-10-14] MEDS ORDERED: Ketorolac Tromethamine 30 MG/ML VIAL ONE (11:44)
[2018-10-14] MEDS ORDERED: PHENYLEPHRINE-NS 100 MCG/ML 10 ML SYRINGE ONE (13:38)
[2018-10-14] MEDS ORDERED: Lidocaine 1% PF 5 ML VIAL ONE (13:38)
[2018-10-14] MEDS ORDERED: PROPOFOL 200 MG/20 ML VIAL ONE (13:38)
[2018-10-14] MEDS: HYDROcodone/Acetaminophen 5/325 mg Tablet PO PRN ×2 (14:59→20:13)
--- NOTE | 2018-10-14 16:52 | MRI ---
MRI RIGHT FOOT WITHOUT CONTRAST 10/14/18 HISTORY: Osteomyelitis and abscess. COMPARISON: Foot radiographs 09/22/18. FINDINGS: There appears to be a recent amputation of the second and third metatarsal necks. There are stress fr actures of the third and fourth proximal metatarsal metadiaphyseal junctions. There is remote amputation of the great toe metatarsophalangeal joint. Evaluation for abscess is limi faiza without intravenous contrast although there is abnormal fluid collection with what appears to be fluid near the resection defect along the lateral margin of the great toe extending a cross the cut e dges of the second and third metatarsal necks and extending along the medial margin of the fourth met atarsal head. There is some loss of normal medullary signal of the second and third and fourth metata rsal diaphysis. There is abnormal muscle edema and fluid interdigitating in the intrinsic musculature between the fir st and second, second and third, third and fourth, and fourth and fifth metatarsal diaphysis. Extensive superficial soft tissue swelling. IMPRESSION: 1. Findings concerning for phlegmonous fluid and abscess throughout the intrinsic musculature an d pyomyositis predominantly surrounding the second, third and fourth metatarsal diaphyses extending t o the cut edge. 2. Abnormal loss of normal T1 signal in the second and third and fourth metatarsal diaphyses may be reactive due to recent amputation although would not be expected in the fourth metatarsal, theref ore there is concern for underlying low grade osteomyelitis of these three metatarsals from the cut e dge of the second and third metatarsal to the proximal metadiaphyseal junction as well as the fourth metatarsal head, neck and mid diaphysis. 3. Stress fractures of the fourth and fifth metatarsal metaphyseal diaphyseal junctions. POS: [facility]
[2018-10-15] MEDS: HYDROcodone/Acetaminophen 5/325 mg Tablet PO PRN ×4 (01:52→22:19)
[2018-10-15] MEDS: Piperacillin/Tazobactam 3.375 GM in Sodium Chloride 0.9% 100 ML IVPB SCH ×4 (02:34→22:09)
[2018-10-15] MEDS: Morphine 4 MG/ML VIAL SLOW IVP PRN ×3 (03:08→18:12)
[2018-10-15] MEDS: Vancomycin HCl 1.25 GM in Sodium Chloride 0.9% 250 ML 250 ML IVPB SCH (03:09)
[2018-10-15] MEDS: Insulin Regular 300 UNITS/3 ML VIAL SC PRN (05:40)
[2018-10-15] MEDS: Sodium Chloride 0.9% 1,000 ML IV SCH ×2 (05:41→19:48)
[2018-10-15] MEDS: Pantoprazole 40 MG VIAL IVP SCH (08:47)
--- NOTE | 2018-10-15 10:52 | PDOC.OP ---
Operative Note - Operative Note Operative Note: PROCEDURE: Right second and third toe ray amputation and drainage of diabetic foot abscess DATE OF PROCEDURE: 10/14/2018 SURGEON: Jose Conde M.D. PREOPERATIVE DIAGNOSES: Right second toe abscess and osteomyelitis POSTOPERATIVE DIAGNOSIS: Right second and third toe abscess and osteomyelitis HISTORY: Patient is status post right first toe transmetatarsal amputation. He had some wound healing issues but no signs of infection. A week ago he fell and since then his foot has been hurting. 2 days ago his right second toe started swelling and becoming more painful and then started draining. When seen in clinic he had an obvious extensive abscess around the second toe and admission for IV antibiotics and amputation was recommended. PROCEDURE IN DETAIL: After informed consent was obtained and appropriate antibiotics continued the patient was taken to the operating room where he was placed in supine position and general anesthesia was administered. He was prepped and draped in standard sterile fashion and local anesthesia infused to the normal skin near the base of the second toe. A paddle-shaped incision was made to include the draining ulcers and dissection carried down to the metatarsophalangeal joint. The toe was resected and passed from the field. The metatarsal head was rongeured back but was obviously osteomyelitic and spongy in consistency and there was purulent fluid around the bone. The bone was debrided back to grossly healthy appearing cancellous bone and all of the purulent fluid was drained. The wound was carefully examined and there was a fairly dense amount of scar tissue near the first metatarsal head but no opening or sinus tracts could be found and there is no expressible pus or fluid from that area. On compression of the lateral foot however there was purulent fluid draining from around the third metatarsophalangeal joint, so the incision was extended to include the third toe which was amputated through this joint. The third metatarsal bone was likely rongeured back and was spongy and consistency at the level of the head but became more normal toward the mid metatarsal bone. The wound was carefully irrigated and flexor and extensor tendons drawn up into the wound and transected. No additional purulent fluid could be identified. Hemostasis was obtained by Bovie electrocautery. An irrigating wound VAC was placed and the patient was extubated and taken to recovery in good condition. Estimated blood loss minimal. No complications. Specimens are pus for Gram stain and culture, and metatarsal bone chips for bone culture.
--- NOTE | 2018-10-15 11:44 | PDOC.GSPN ---
Surgery Progress Note: Subj - Subjective Narrative: Reviewed MRI with radiologist. The fluid seen is postoperative/irrigating wound VAC fluid, but he does have some cortical irregularity of the first metatarsal head concerning for persistent osteomyelitis, and the second and third metatarsals have signal changes in the base concerning for osteomyelitis in the residual bone. The fourth metatarsal has some early signal changes as well. I discussed these findings with the patient. He has fairly extensive infection, and I don't think his odds of foot salvage are very good. I will have him discuss this with Dr. Duque. Unfortunately I can't go up any higher and still leave him a functional foot so the next surgical step would be below-knee amputation. I'm going to make him nothing by mouth after midnight and look at his wound tomorrow with the wound care team. If he still has draining pus, then below-knee amputation will be necessary. Otherwise I will admit him and Dr. Duque decide together whether he is going to attempt foot salvage with long- term antibiotics and VAC dressings. Surgery Progress Note: Obj - Vital signs Vital signs: Vital Signs - Most Recent Temp Pulse Resp BP Pulse Ox 98.6 F 94 18 150/86 H 93 L 10/15/18 11:37 10/15/18 11:37 10/15/18 11:37 10/15/18 11:37 10/15/18 11:37 Surgery Progress Note: Results - Labs Result Diagrams: 10/13/18 14:54 10/13/18 14:54 Lab results: Laboratory Results - last 24 hr 10/15/18 10/15/18 05:31 10:40 POC Glucose 247 H 105
[2018-10-15] MEDS ORDERED: Guaifenesin DM 100-10/5 ML UDCUP PO PRN (17:03)
[2018-10-15] MEDS ORDERED: Furosemide 40 MG/4 ML VIAL SLOW IVP SCH (17:15)
--- NOTE | 2018-10-15 17:19 | RAD ---
CHEST ONE VIEW: 10/15/18 HISTORY: Dyspnea. COMPARISON: None. FINDINGS: Multifocal air space opacities throughout the lungs. No pneumothorax. There appears to be some scarri ng in the lungs. There is possibly a mass in the left lower lobe and right upper lobe. No pneumothora x. No acute osseous abnormality. IMPRESSION: Abnormal mass-like appearance of nodules in the right upper lobe and left lower lobe with superimpose d abnormal interstitial markings. CT of the chest recommended for evaluation for underlying metastati c disease. Septic emboli is also a possibility. POS: [facility]
[2018-10-15 17:29] LABS: Troponin I 0.019 ng/mL (< 0.028)
[2018-10-15 18:03] LABS: Anion Gap 17 mmol/L (10-20); BUN (Urea Nitrogen) 20 mg/dL (8.4-25.7); Calc. Creatinine Clearance 56 mL/min (70-130); Calcium 8.7 mg/dL (7.8-10.44); Carbon Dioxide 15 mmol/L (22-29); Chloride 109 mmol/L (98-107); Estimated GFR-MDRD 38; Glucose 136 mg/dL (70-105); Potassium 4.5 mmol/L (3.5-5.1); Sodium 136 mmol/L (136-145)
[2018-10-15 20:27] LABS: Bilirubin Negative (Negative); Blood, Urine Small (Negative); Clarity CLEAR (Clear); Glucose, Urine (Dipstick) Negative (Negative); Leukocyte Negative (Negative); Nitrite Negative (Negative); Protein, Urine (Dipstick) Negative (Neg-Trace); Specific Gravity, Urine 1.005 (1.002-1.036); Urobilinogen 0.2 mg/dL (0.2-1.0)
[2018-10-15 20:28] LABS: Bacteria/HPF None Seen HPF (None Seen); Hyaline Casts/LPF 0-3 HYALINE CAST LPF (0-3 Hyaline); Pathc Cast-AUWi Flag 0.13 (0-2.49); Squamous Epithelial None Seen HPF (0-3); WBC/HPF None Seen HPF (0-3)
[2018-10-15] MEDS: Famotidine 20 MG TAB PO SCH (22:20)
--- NOTE | 2018-10-15 23:08 | CON ---
DATE OF CONSULTATION: 10/15/2018 HISTORY OF PRESENT ILLNESS: A 53-year-old known to us from recent visit with a history of type 2 diabetes, prior methamphetamine use history and right hallux osteomyelitis who had amputation at the MPJ location. The patient sustained a recurrence of inflammatory process in July 2018. The vascular supply appeared to be adequate and the wound had repeated debridement. Cultures revealed a polymicrobial hortensia with MSSA, Streptococcus, Achromobacter, Morganella. Another sample with MRSA Enterococcus and two other different gram negatives. Before admission in July, he developed a small ulceration with increase in size and plain films did not show any destructive changes and he was discharged on Flagyl , ciprofloxacin, and daptomycin. The patient finished course of antimicrobial therapy and was seen by Dr. Conde in the office in September. There was a small amount of drainage from the site and he was discharged with oral tramadol. and he followed up with Dr. Conde and she realized that there was worsening of inflammatory process and the patient was readmitted. The patient required a repeat amputation this time, the second and third toes were removed. The pathology has demonstrated ulceration with acute inflammation, viable margins with areas of acute inflammation. There is still some residual inflammation at one of the margins. The operative note of the amputation was reviewed and incision was made to include draining ulcers. Dissection carried down to the metatarsophalangeal joint. Bone was debrided back to grossly healthy-appearing cancellous bone and all the purulent fluid drainage drained. No open sinus tracts were noted. Currently, the patient is coughing frequently, is dyspneic. He had some desaturation of his oximetries over the past 2 hours. He is given a breathing treatment, but continues to feel unwell. Denies any headaches. No visual symptoms. He has no sputum production. No chest pain. No abdominal pain. Not much sensation in the involved foot. PAST MEDICAL HISTORY: Type 2 diabetes, chronic renal insufficiency, stage 3, right first toe amputation and now the second and third toe amputations. SOCIAL HISTORY: Former methamphetamine and cocaine use. Former smoker. ALLERGIES: SULFONAMIDE DRUGS. FAMILY HISTORY: Noncontributory. CURRENT MEDICATIONS: 1. Hydrocodone. 2. Dextrose. 3. Glucagon. 4. Insulin. 5. Morphine. 6. Zosyn. 7. Vancomycin. PHYSICAL EXAMINATION: VITAL SIGNS: T-max 99.3, currently 98.6, BP 150/86, pulse 94, respirations 18, O2 saturation 93% on room air and 96% with 2 L nasal cannula, coughing constantly. HEENT: Ocular movements are conjugate. Pupils are equal. Oral cavity is unremarkable. NECK: Supple with some jugular vein distention. LUNGS: With bibasilar inspiratory crackles and expiratory wheezing heard diffusely over the chest, both right and left lungs. HEART: S1 and S2. Tachycardic. No S3. ABDOMEN: Soft, not distended. No ascites. No bladder distention. : No genital abnormalities. MUSCULOSKELETAL: No joint inflammatory activity. The right foot with a negative pressure dressing. Trace edema, lower extremities. He is able to move extremities equally. NEUROLOGIC: He is awake, oriented, follows commands. LABORATORY DATA: White cell count is not repeated from yesterday and the last chemistry is from the 5th. ASSESSMENT: Type 2 diabetes, renal insufficiency, stage 3, recurring inflammatory process, right foot with previous 1st MPJ amputation, now 2nd and 3rd rays as well. Some residual osteo is a concern. DISCUSSION: Cultures are pending at this time, and once we have those resulted, then we will plan outpatient therapy. Again, we will repeat course of IV therapy for protracted period of time in the attempt of salvaging the right foot. The patient now presents with clinical findings that are consistent with pulmonary edema. We will transfer to tele. Consult hospitalist, chest x-ray, cardiac enzymes, EKG, and BNP. Probably need diuresis and other interventions for management of CHF and pulmonary edema. Pulmonary embolism would be another concern due to thromboembolism. Job ID: [id number] [facility]
--- NOTE | 2018-10-16 00:44 | CON ---
DATE OF CONSULTATION: PRIMARY CARE PHYSICIAN: Dr. Corin Cisse. PRIMARY TEAM: General Surgery, Dr. Conde. REASON FOR CONSULTATION: New onset shortness of breath and cough after surgery along with medical management. HISTORY OF PRESENT ILLNESS: This is a 53-year-old white male with a known history of diabetes mellitus type 2, on oral hypoglycemics and previous right great toe amputation and subsequent wound infection. He has had multiple stays in the hospital for this, was seen in Dr. Conde's office and was noted to have worsening infection, so she brought him in on the , two days ago for surgery. He had surgery done yesterday along with an MRI that showed concern for diffuse osteomyelitis of the metatarsals. Dr. Duque has been consulted to help with making decisions about a [id number] amputation versus attempt at medical management with long-term IV antibiotics. The patient was not having any respiratory complaints when he first came to the hospital, was doing fine yesterday and earlier today around noon today, he started having some coughing and his oxygen saturations dropped a little bit with that and then he became progressively short of breath , had to be put on oxygen and has had persistent coughing. When Dr. Duque saw, he was concerned about possible fluid overload and ordered some lab and a chest x-ray and then, we were consulted. The patient denies any fevers, chills, or other complaints. PAST MEDICAL HISTORY: 1. Diabetes mellitus type 2, on oral hypoglycemics. 2. Chronic anemia. 3. Diabetic ulcers of right great toe requiring amputation and continued infection. 4. Borderline hypertension, got dizzy with blood pressure medications and so was taken off them. 5. Peripheral neuropathy. PAST SURGICAL HISTORY: 1. Amputation of left pointer finger due to accident. 2. Right great toe amputation. 3. PICC line placement. PAST PSYCHIATRIC HISTORY: None. SOCIAL HISTORY: Depression, currently a resident of [facility] drug rehab program at [place] for cocaine and methamphetamine abuse. Used to chew tobacco as well and has not done since being in the [facility]. FAMILY HISTORY: Mother had diabetes and breast cancer and father in his 30s of bone cancer. ALLERGIES: SULFA. MEDICATIONS: 1. Metformin 1000 mg twice a day. 2. Glipizide 5 mg daily. REVIEW OF SYSTEMS: CONSTITUTIONAL: No fevers or chills. EYES: No double vision or blurred vision. ENT: No congestion, drainage, or sore throat. CARDIOVASCULAR: No chest pain. No palpitations or racing heart. PULMONARY: No coughing, wheezing, or shortness of breath. GASTROINTESTINAL: No abdominal pain. He did have some nausea and vomiting about 2 weeks ago, but none since. No diarrhea or constipation. GENITOURINARY: No dysuria or hematuria. MUSCULOSKELETAL: No muscle aches or joint pains. He does have ulcers on his right foot. SKIN: See above. No other lesions or rashes that he has noticed. NEUROLOGIC: He has bilateral numbness to bilateral lower extremities from diabetic peripheral neuropathy. No other numbness, tingling, or focal weakness. PHYSICAL EXAMINATION: VITAL SIGNS: Blood pressure 150/86, pulse 100, temperature 98.6, respirations 20, O2 saturation was in the 80s on room air and now saturating well on 2 L nasal cannula. GENERAL: This is a well-developed, well-nourished white male, in no acute distress with occasional coughing fits. HEENT: Pupils equal, round, and reactive to light. Oropharynx clear without lesions, erythema, or exudate. NECK: Supple. No lymphadenopathy. No thyroid nodules or enlargement. No JVD. HEART: Tachycardic rate, regular rhythm. No murmurs, rubs, or gallops. LUNGS: The patient has some junky lung sounds throughout, but no specific crackles or rhonchi. No focal findings. ABDOMEN: Soft, obese, nontender to palpation. Normoactive bowel sounds. No hepatosplenomegaly or other masses. EXTREMITIES: No clubbing, cyanosis, or edema. The patient does have a postsurgical dressing over his right foot. SKIN: The patient has a postsurgical dressing over his right foot where the ulcers are currently clean, dry, and intact. No other skin lesions noted. NEUROLOGIC: The patient has intact strength in all extremities. No facial droop. PSYCHIATRIC: Alert and oriented x3. Normal mood and affect. LABORATORY DATA: White blood cell count 13,000, this was 2 days ago, hemoglobin 9.5, hematocrit of 28.4, platelet count 272. Complete metabolic panel done 2 days ago showed a sodium of 134, carbon dioxide of 18, BUN of 29, and creatinine of 2.00. The creatinine has been going up over the last 2 to 3 months, it seems like since he was started on an IV infusion therapy for his infection, followed by Dr. Duque, it has gotten high at 2.18 when he first came to see us for his foot. He had ranges between 0.8 up to 1.8 for his creatinine, never higher than that. Glucose of 310, has come down to most recent 158. The rest of it was normal. Most recent vancomycin trough was 30. Chest x-ray; I did review the chest x-ray just ordered by Dr. Duque along with the radiologist's report. The radiologist is concerned about masslike appearance of nodules in the right upper lobe and left lower lobe with superimposed abnormal interstitial markings concerning for underlying metastatic disease versus septic emboli. On my review of the chest x-ray, it looks more like bilateral pulmonary edema which fits more with the clinical picture of the patient's symptoms. Lower extremity MRI report from radiologist reviewed from yesterday showing findings concerning for a phlegmonous fluid and abscess throughout the intrinsic musculature and pyomyositis surrounding the 2nd, 3rd, and 4th metatarsal diaphysis extending to the cut edge. Also with some abnormal signal loss in the 2nd, 3rd, and 4th metatarsal diaphysis, possibly reactive versus concerning for low-grade osteomyelitis. ASSESSMENT: 1. Acute hypoxic respiratory failure. This is most likely acute pulmonary edema from volume overload. He has gotten a total of 5 L over the last 2 days. In the hospital today, he only had 900 mL of urine output. I will give him a dose of 40 mg of IV Lasix and stop his IV fluids at this point. I do think that we should transfer him to telemetry to keep a closer eye on him, especially with his tachycardia and getting an EKG as well. Brain natriuretic peptide has been ordered and is pending. Also a cardiac marker set was ordered by Dr. Duque and that is pending as well. Other possible etiologies could be some sort of aspiration pneumonitis versus pneumonia from his surgery, this is likely. The patient is already on broad-spectrum antibiotics if this be the case. I do not think that the patient has masses in his lungs at this point; however, a repeat chest x-ray after resolution of his symptoms would be desirable to confirm resolution of the infiltrates. I will go ahead and get an echocardiogram on him as well to look for any underlying cardiac dysfunction. 2. Acute hypertension. His blood pressure actually has been decent most of his hospital stay until he started getting short of breath, highest was 140/116 on his first check when he came into the hospital. He also had some tachycardia at that time, so he may have some underlying hypertension as well, but it has spiked since his some onset of symptoms, again the symptoms are likely due to volume overload. We will watch his blood pressures as we diurese him and see if they improve. 3. Diabetes mellitus type 2. Currently, he is on insulin sliding scale. I do not think he should go back on the metformin with his renal function the way that is right now. His blood sugars have been decently controlled once he was in the hospital and on carbohydrate control here. I was fairly elevated when he first came in, likely from poor diet as an outpatient. 4. Acute renal failure. This is actually gradual onset over the last couple of months, concerning for some renal disease from his antibiotic administration. We will go ahead and consult Nephrology and get their input on this. We will need to watch the creatinine closely, especially with diuresing. However, he has not had a repeat creatinine since he got all the fluids, it may have come down some. 5. Gastrointestinal prophylaxis. Put the patient on Pepcid twice a day. 6. Deep venous thrombosis prophylaxis. We will defer to Surgery. CODE STATUS: I did discuss with the patient, he is a full code. Should he be incapacitated, he states he does not really have any family members who could help with medical decisions. His medical decision makers was listed as Claude Fish, I believe at the [facility]. Thank you very much for the consultation. We will continue to follow along with you in taking care of this patient while he is in the hospital. Job ID: [id number] [facility]
--- NOTE | 2018-10-16 01:16 | CON ---
DATE OF CONSULTATION: CONSULTING PHYSICIAN: Dayanara Pritchard MD REQUESTING PHYSICIAN: Dr. Hubert Barton. REASON FOR CONSULTATION: Acute on chronic kidney disease. IMPRESSION: 1. Acute on chronic kidney disease. This is possibly cytokine-mediated in the context of infection. 2. Baseline chronic kidney disease stage 3, possibly in the context of diabetic nephropathy. 3. Metabolic acidosis, possibly type 4 and renal tubular acidosis in the context of diabetes. 4. Nonhealing diabetic foot ulcer. PLAN: 1. We will evaluate the degree of proteinuria in this patient vis-a-vis the possibility of significant diabetic nephropathy. 2. We will check the hemoglobin A1c. 3. Renally dose all medications for low GFR and avoid potentially nephrotoxic agents, especially nonsteroidal anti-inflammatory drugs. 4. If the patient is proved to have significant proteinuria, we will go ahead and place this patient on angiotensin-converting enzyme inhibitor or angiotensin receptor shanita. HISTORY OF PRESENT ILLNESS: This is a 53-year-old gentleman with a nonhealing diabetic foot ulcer, who presented here to be evaluated and treated for possible osteomyelitis. The patient's baseline creatinine is about 1.4; however, on presentation, he was noted with a creatinine of 2.0. As a result of these findings, decision has been taken to involve Renal in the management of this case. PAST MEDICAL HISTORY: Significant for diabetes mellitus, nonhealing ulcers. MEDICATIONS: Reviewed and as documented on [employer]. SOCIAL HISTORY: No alcohol. No tobacco. No illicit drug use. Remote illicit drug usage. REVIEW OF SYSTEMS: As documented in the body of history. All other systems were reviewed and found not to be significantly related to present illness. FAMILY HISTORY: No family history of kidney disease. ALLERGIES: TO SULFA DRUGS. PHYSICAL EXAMINATION: GENERAL: The patient was found not to be in any obvious distress. VITAL SIGNS: Noted with the following vital signs; afebrile, temperature 98.6, pulse 94, respiratory rate of 18, and O2 saturations 93% with blood pressure 150/86. HEENT: Unremarkable. Moist oral mucosa. NECK: Supple. No conjunctival injection or icterus. CARDIOVASCULAR SYSTEM: First and second heart sounds were heard. RESPIRATORY SYSTEM: Clear to auscultation. DIGESTIVE SYSTEM: Revealed a benign abdomen. EXTREMITIES: Showed no peripheral edema. SKIN: No new gross rash except some ulcers related to lower extremities. LYMPHATICS: No peripheral lymphadenopathy. SUMMARY: A 53-year-old gentleman with acute on chronic kidney disease, possibly in the context of diabetic nephropathy. Thank you for this consultation. We will follow with you. Job ID: [id number]
[2018-10-16] MEDS: Piperacillin/Tazobactam 3.375 GM in Sodium Chloride 0.9% 100 ML IVPB SCH ×4 (03:46→20:58)
[2018-10-16 05:55] LABS: Hemoglobin A1c 6.1 % (4.0-6.0)
[2018-10-16] MEDS ORDERED: Furosemide 40 MG/4 ML VIAL SLOW IVP SCH (07:45)
[2018-10-16] MEDS ORDERED: Sodium Chloride 0.9% 20 ML ONE (08:06)
[2018-10-16] MEDS: Morphine 4 MG/ML VIAL SLOW IVP PRN ×3 (09:06→21:00)
[2018-10-16] MEDS: Famotidine 20 MG TAB PO SCH ×2 (09:07→20:58)
[2018-10-16] MEDS: Pantoprazole 40 MG VIAL IVP SCH (09:07)
[2018-10-16] MEDS: Enoxaparin Sodium 40 MG/0.4 ML SYRINGE SC SCH (09:08)
[2018-10-16] MEDS ORDERED: Vancomycin HCl 1.25 GM in Sodium Chloride 0.9% 250 ML 250 ML IVPB SCH (10:00)
[2018-10-16 10:23] LABS: Vancomycin, Random 18.7 ug/mL (See Comment)
[2018-10-16 10:24] LABS: Anion Gap 17 mmol/L (10-20); BUN (Urea Nitrogen) 19 mg/dL (8.4-25.7); Calc. Creatinine Clearance 55 mL/min (70-130); Carbon Dioxide 18 mmol/L (22-29); Chloride 105 mmol/L (98-107); Potassium 4.1 mmol/L (3.5-5.1); Sodium 136 mmol/L (136-145)
[2018-10-16 10:25] LABS: Calcium 9.3 mg/dL (7.8-10.44); Estimated GFR-MDRD 38; Glucose 135 mg/dL (70-105)
[2018-10-16] MEDS ORDERED: Fentanyl 100 MCG/2 ML VIAL SLOW IVP SCH (11:00)
--- NOTE | 2018-10-16 12:21 | PDOC.PN ---
- Subjective Encounter Start Date: 10/16/18 Encounter Start Time: 09:00 -: old records requested/rev Patient seen and examined. No new complaints. No overnight events - Objective Resuscitation Status - Order Detail: 10/15/18 17:07 Resuscitation Status Routine Resuscitation Status: FULL: Full Resuscitation Discussed with: Patient HILARIO Reviewed: Yes Vital Signs & Weight: Vital Signs (12 hours) Temp Pulse Resp BP Pulse Ox 10/16/18 11:20 98 16 156/84 H 100 10/16/18 09:01 97.4 F L 97 17 170/85 H 97 10/16/18 07:36 97 10/16/18 04:24 99.2 F 89 156/78 H 96 Weight Admit Weight 192 lb Weight 192 lb I&O: 10/15/18 10/16/18 10/17/18 06:59 06:59 06:59 Intake Total 3030 350 Output Total 900 1100 Balance 2130 -750 Result Diagrams: 10/13/18 14:54 10/16/18 09:22 Additional Labs: Accuchecks 10/16/18 10/16/18 10/15/18 10:54 05:37 22:27 POC Glucose 151 H 156 H 135 H 10/15/18 16:14 POC Glucose 144 H Radiology Reviewed by me: Yes EKG Reviewed by me: Yes Phys Exam - Physical Examination Constitutional: NAD HEENT: PERRLA, moist MMs, sclera anicteric Neck: no JVD, supple Respiratory: no wheezing, no rales, no rhonchi Cardiovascular: RRR, no significant murmur, no rub Gastrointestinal: soft, non-tender, no distention, positive bowel sounds Musculoskeletal: no edema, pulses present right foot with dressing, wound vac in place Neurological: non-focal, normal sensation, moves all 4 limbs Lymphatic: no nodes Psychiatric: normal affect, A&O x 3 Skin: no rash, normal turgor Dx/Plan (1) Acute respiratory failure with hypoxemia Code(s): J96.01 - ACUTE RESPIRATORY FAILURE WITH HYPOXIA Status: Acute (2) Diabetic foot infection Code(s): E11.628 - TYPE 2 DIABETES MELLITUS WITH OTHER SKIN COMPLICATIONS; L08.9 - LOCAL INFECTION OF THE SKIN AND SUBCUTANEOUS TISSUE, UNSP Status: Acute Comment: S/P RAY AMPUTATION OF TOE (3) Osteomyelitis of foot, right, acute Code(s): M86.171 - OTHER ACUTE OSTEOMYELITIS, RIGHT ANKLE AND FOOT Status: Acute Comment: (4) CKD (chronic kidney disease), stage III Code(s): N18.3 - CHRONIC KIDNEY DISEASE, STAGE 3 (MODERATE) Status: Chronic Comment: avoid nephrotoxic meds and limit contrast exposure (5) Chronic anemia Code(s): D64.9 - ANEMIA, UNSPECIFIED Status: Chronic Comment: Low Iron and Folic acid (6) DM2 (diabetes mellitus, type 2) Status: Chronic Qualifiers: Diabetes mellitus complication status: with hyperglycemia Comment: Poor control given DM foot infections and labile glucose, continue home regimen and titrate for optimal response, ADA, last A1C 10.2 in December 2017 (7) Polysubstance abuse Code(s): F19.10 - OTHER PSYCHOACTIVE SUBSTANCE ABUSE, UNCOMPLICATED Status: Chronic Comment: currently at Rehab - Plan cont current plan of care, continue antibiotics * continue zosyn and vancomycin * give one dose of lasix * repeat chest xray tomorrow to see improvement * wound care * medication reviewed as below * symptomatic treatment. Review of Systems - Review of Systems ENT: negative: Ear Pain, Ear Discharge, Nose Pain, Nose Discharge, Nose Congestion, Mouth Pain, Mouth Swelling, Throat Pain, Throat Swelling, Other Respiratory: negative: Cough, Dry, Shortness of Breath, Hemoptysis, SOB with Excertion, Pleuritic Pain, Sputum, Wheezing Cardiovascular: negative: chest pain, palpitations, orthopnea, paroxysmal nocturnal dyspnea, edema, light headedness, other Gastrointestinal: negative: Nausea, Vomiting, Abdominal Pain, Diarrhea, Constipation, Melena, Hematochezia, Other Genitourinary: negative: Dysuria, Frequency, Incontinence, Hematuria, Retention , Other Musculoskeletal: negative: Neck Pain, Shoulder Pain, Arm Pain, Back Pain, Hand Pain, Leg Pain, Foot Pain, Other - Medications/Allergies Allergies/Adverse Reactions: Allergies Allergy/AdvReac Type Severity Reaction Status Date / Time No Known Allergies Allergy Verified 10/13/18 14:10 Medications: Current Medications Hydrocodone Bitart/Acetaminophen (Pamplico 5/325) 1 tab PO Q4H PRN PRN Reason: Mild-Moderate Pain (1-5) Hydrocodone Bitart/Acetaminophen (Pamplico 5/325) 2 tab PO Q4H PRN PRN Reason: Moderate to Severe Pain (6-10) Last Admin: 10/15/18 22:19 Dose: 2 tab Amlodipine Besylate (Norvasc) 5 mg PO DAILY [facility] Dextrose/Water (Dextrose 50%) 25 gm IVP PRN PRN PRN Reason: HYPOGLYCEMIA PROTOCOL Enoxaparin Sodium (Lovenox) 40 mg SC 0900 [facility] Last Admin: 10/16/18 09:08 Dose: 40 mg Famotidine (Pepcid) 20 mg PO BID [facility] Last Admin: 10/16/18 09:07 Dose: 20 mg Fentanyl (Sublimaze) 50 mcg SLOW IVP NOW [facility] Stop: 10/16/18 13:00 Last Admin: 10/16/18 11:10 Dose: 50 mcg Glucagon (Glucagon) 1 mg IM PRN PRN PRN Reason: HYPOGLYCEMIA PROTOCOL Guaifenesin/Dextromethorphan (Robitussin Dm) 15 ml PO Q4H PRN PRN Reason: Cough Last Admin: 10/15/18 22:08 Dose: 15 ml Dextrose/Water (D5w) 1,000 mls @ 0 mls/hr IV INF PRN PRN Reason: HYPOGLYCEMIA PROTOCOL Piperacillin Sod/Tazobactam (Sod 3.375 gm/ Sodium Chloride) 100 mls @ 200 mls/ hr IVPB 0300,0900,1500,2100 [facility] Last Admin: 10/16/18 09:09 Dose: 100 mls Vancomycin HCl 1.25 gm/ Sodium (Chloride) 250 mls @ 166.667 mls/hr IVPB .PENDING LEVEL [facility] Insulin Human Regular (Humulin R) 0 units SC .MODERATE SLIDING SC PRN; Protocol PRN Reason: MODERATE SLIDING SCALE Last Admin: 10/15/18 05:40 Dose: 4 unit Insulin Human Regular (Humulin R) 0 units SC .BEDTIME SLIDING SC PRN; Protocol PRN Reason: BEDTIME SLIDING SCALE Miscellaneous Medication (Pharmacy To Dose) 1 each IVPB PRN PRN PRN Reason: Pharmacy to dose Morphine Sulfate (Morphine) 2 mg SLOW IVP Q2H PRN PRN Reason: Mild-Moderate Pain (1-5) Last Admin: 10/14/18 06:06 Dose: 2 mg Morphine Sulfate (Morphine) 4 mg SLOW IVP Q2H PRN PRN Reason: Moderate to Severe Pain (6-10) Last Admin: 10/16/18 09:06 Dose: 4 mg Pantoprazole Sodium (Protonix) 40 mg IVP DAILY [facility] Last Admin: 10/16/18 09:07 Dose: 40 mg Sodium Chloride (Normal Saline Pf) 10 ml FS PRN PRN PRN Reason: RECONSTITUTION Last Admin: 10/16/18 09:07 Dose: 10 ml
--- NOTE | 2018-10-16 12:22 | PRG ---
DATE OF SERVICE: 10/16/2018 SUBJECTIVE: The patient is seen and examined. Noted with the following vital signs. OBJECTIVE: VITAL SIGNS: Afebrile, temperature 97.4, pulse 97, respiratory rate of 17, O2 saturations are 97%, and blood pressure 156/84. RESPIRATORY: Clear to auscultation. DIGESTIVE: Revealed a benign abdomen. Positive bowel sounds. EXTREMITIES: No peripheral edema. SKIN: No new gross rash. LYMPHATICS: No peripheral lymphadenopathy. IMPRESSION: 1. Chronic kidney disease stage 3. 2. Acute on chronic kidney disease in the context of infection. PLAN: 1. Continue to renally dose all medications while avoiding potentially nephrotoxic agents. 2. From urinalysis, it appears the patient does not have much of any significant proteinuria. 3. The patient likely to benefit from antihypertensive medication as the patient is currently not on any antihypertensive medication. 4. Further management to be dependent on the clinical course. Job ID: [id number]
--- NOTE | 2018-10-16 14:02 | PRG ---
DATE OF SERVICE: SUBJECTIVE: Mr. Ibarra has been transferred to [facility]. He is feeling better. No dyspnea. Less cough. OBJECTIVE: VITAL SIGNS: T-max 99.9, blood pressure 150/84, pulse 98, O2 saturations are up to 97 to 100 on 2 L nasal cannula, oriented. LUNGS: Few expiratory wheezing, few crackles, scattered. S1 and S2. CARDIAC: Regular rate. ABDOMEN: Soft. EXTREMITIES: Foot with dressing. LABORATORY DATA: White cell count 13,000, has not been repeated. Creatinine is at 1.88, which is fairly stable. Calcium 9.3. BNP 328. Microbiology with Staph aureus retrieved from the wound. Pending susceptibilities. Currently receiving Zosyn and vancomycin. The last vancomycin trough 18.7. Chest x-ray demonstrated masslike appearance of nodules in the right upper lobe, left lower lobe with superimposed interstitial markings, septic emboli versus edema versus masses. The patient to have a CT scan of chest ordered, which will have to be done without contrast. ASSESSMENT AND DISCUSSION: Type 2 diabetes, renal insufficiency stage 3 to 4 recurring inflammatory process right foot, which has led to multiple procedures with now an accident and another inflammatory process appears to be in a separate location this time lateral to the previous amputation site involving second and third rays which had to be amputated. Residual osteo was a concern. The patient will have to be continued on protracted antimicrobial therapy in an attempt to salvage his foot. At same time, he developed respiratory decompensation. This could be either congestive heart failure with pulmonary edema versus pneumonia from the original infection site or neoplastic process. We will have previous imaging studies, so it is hard to tell if this is an acute change if they had been present before. We will probably need a CT of chest to evaluate those changes. He has been given IV diuretics. Job ID: [id number]
[2018-10-16] MEDS: HYDROcodone/Acetaminophen 5/325 mg Tablet PO PRN (14:15)
--- NOTE | 2018-10-16 14:19 | PDOC.GSPN ---
Surgery Progress Note: Subj - Subjective Narrative: The patient states that he is breathing much better since receiving Lasix last night. He denies any chest pain or shortness of breath today. I very much appreciate the assistance of Dr. Duque and the hospitalists regarding his dyspnea. His wound looks good and is clean and granulating. No expressible purulence and no odor or nonviable tissue. We're going to attempt foot salvage with VAC and long-term IV antibiotics. Cultures are still pending. Gram- positive cocci were seen on Gram stain. The wound care team is going to placement of the irrigating VAC on for the weekend and then transitioned to a regular VAC next week. He is going to be transferred to the inpatient medicine team for management of his ongoing medical issues. Dr. Wilson is available this weekend and Dr. Contreras is available next week if surgical issues arise, since I will be out of town. If he is still in the hospital on my return I will see him then. Otherwise I will see him in the wound care clinic when he comes for his VAC changes. Surgery Progress Note: Obj - Vital signs Vital signs: Vital Signs - Most Recent Temp Pulse Resp BP Pulse Ox 97.4 F L 98 16 156/84 H 100 10/16/18 09:01 10/16/18 11:20 10/16/18 11:20 10/16/18 11:20 10/16/18 11:20 Surgery Progress Note: Results - Labs Result Diagrams: 10/13/18 14:54 10/16/18 09:22 Lab results: Laboratory Results - last 24 hr 10/16/18 10/16/18 10/16/18 05:23 05:37 09:22 Sodium Potassium Chloride Carbon Dioxide Anion Gap BUN Creatinine Estimated GFR (MDRD) Glucose POC Glucose 156 H Hemoglobin A1c 6.1 H Calcium Random Vancomycin 18.7 10/16/18 10/16/18 09:22 10:54 Sodium 136 Potassium 4.1 Chloride 105 Carbon Dioxide 18 L Anion Gap 17 BUN 19 Creatinine 1.88 H Estimated GFR (MDRD) 38 Glucose 135 H POC Glucose 151 H Hemoglobin A1c Calcium 9.3 Random Vancomycin
[2018-10-16] MEDS: Amlodipine 5 MG TAB PO SCH (14:23)
[2018-10-16] MEDS: Vancomycin HCl 750 MG in Sodium Chloride 0.9% 250 ML 250 ML IVPB SCH (14:48)
--- NOTE | 2018-10-16 14:59 | EKG ---
Test Reason : Blood Pressure : / mmHG Vent. Rate : 121 BPM Atrial Rate : 121 BPM P-R Int : 150 ms QRS Dur : 070 ms QT Int : 288 ms P-R-T Axes : 064 001 036 degrees QTc Int : 408 ms Sinus tachycardia Otherwise normal ECG No previous ECGs available Confirmed by MALAIKA PEREZ ([id number]) on 10/16/2018 2:58:51 PM Referred By: Confirmed By:MALAIKA PEREZ
[2018-10-16] MEDS: Insulin Regular 300 UNITS/3 ML VIAL SC PRN (16:57)
[2018-10-17] MEDS: Vancomycin HCl 750 MG in Sodium Chloride 0.9% 250 ML 250 ML IVPB SCH ×2 (02:53→17:29)
[2018-10-17] MEDS: Piperacillin/Tazobactam 3.375 GM in Sodium Chloride 0.9% 100 ML IVPB SCH ×3 (03:30→17:28)
[2018-10-17] MEDS: Morphine 4 MG/ML VIAL SLOW IVP PRN ×5 (04:54→21:07)
[2018-10-17 06:53] LABS: Anion Gap 12 mmol/L (10-20); BUN (Urea Nitrogen) 19 mg/dL (8.4-25.7); Calc. Creatinine Clearance 58 mL/min (70-130); Calcium 8.8 mg/dL (7.8-10.44); Carbon Dioxide 24 mmol/L (22-29); Chloride 103 mmol/L (98-107); Estimated GFR-MDRD 38; Glucose 158 mg/dL (70-105); Potassium 3.9 mmol/L (3.5-5.1); Sodium 135 mmol/L (136-145)
[2018-10-17] MEDS: Amlodipine 5 MG TAB PO SCH (09:05)
[2018-10-17] MEDS: Famotidine 20 MG TAB PO SCH ×2 (09:05→21:08)
[2018-10-17] MEDS: Enoxaparin Sodium 40 MG/0.4 ML SYRINGE SC SCH (09:06)
[2018-10-17] MEDS: Pantoprazole 40 MG VIAL IVP SCH (09:08)
--- NOTE | 2018-10-17 10:03 | PDOC.PN ---
- Subjective Encounter Start Date: 10/17/18 Encounter Start Time: 08:00 Patient seen and examined. No new complaints. No overnight events - Objective Resuscitation Status - Order Detail: 10/15/18 17:07 Resuscitation Status Routine Resuscitation Status: FULL: Full Resuscitation Discussed with: Patient HILARIO Reviewed: Yes Vital Signs & Weight: Vital Signs (12 hours) Temp Pulse Resp BP Pulse Ox 10/17/18 09:05 87 10/17/18 07:35 97.7 F 87 16 150/83 H 100 10/17/18 04:36 75 15 131/73 99 Weight Admit Weight 192 lb Weight 200 lb I&O: 10/16/18 10/17/18 10/18/18 06:59 06:59 07:59 Intake Total 350 2100 Output Total 1100 2950 Balance -750 -850 Result Diagrams: 10/13/18 14:54 10/17/18 06:19 Additional Labs: Accuchecks 10/17/18 10/16/18 10/16/18 05:28 20:11 16:36 POC Glucose 155 H 177 H 206 H 10/16/18 10:54 POC Glucose 151 H Radiology Reviewed by me: Yes (echo noted) EKG Reviewed by me: Yes Phys Exam - Physical Examination Constitutional: NAD HEENT: PERRLA, moist MMs, sclera anicteric Neck: no JVD, supple Respiratory: no wheezing, no rales, no rhonchi Cardiovascular: RRR, no significant murmur, no rub Gastrointestinal: soft, non-tender, no distention, positive bowel sounds Musculoskeletal: no edema, pulses present Neurological: non-focal, normal sensation, moves all 4 limbs right foot with wound vac and dressing Lymphatic: no nodes Psychiatric: normal affect, A&O x 3 Skin: no rash, normal turgor Dx/Plan (1) Acute respiratory failure with hypoxemia Code(s): J96.01 - ACUTE RESPIRATORY FAILURE WITH HYPOXIA Status: Acute (2) Diabetic foot infection Code(s): E11.628 - TYPE 2 DIABETES MELLITUS WITH OTHER SKIN COMPLICATIONS; L08.9 - LOCAL INFECTION OF THE SKIN AND SUBCUTANEOUS TISSUE, UNSP Status: Acute Comment: S/P RAY AMPUTATION OF TOE (3) Osteomyelitis of foot, right, acute Code(s): M86.171 - OTHER ACUTE OSTEOMYELITIS, RIGHT ANKLE AND FOOT Status: Acute Comment: (4) CKD (chronic kidney disease), stage III Code(s): N18.3 - CHRONIC KIDNEY DISEASE, STAGE 3 (MODERATE) Status: Chronic Comment: (5) Chronic anemia Code(s): D64.9 - ANEMIA, UNSPECIFIED Status: Chronic Comment: (6) DM2 (diabetes mellitus, type 2) Status: Chronic Qualifiers: Diabetes mellitus complication status: with hyperglycemia Comment: (7) Polysubstance abuse Code(s): F19.10 - OTHER PSYCHOACTIVE SUBSTANCE ABUSE, UNCOMPLICATED Status: Chronic Comment: - Plan cont current plan of care, plan discussed w/ family, continue antibiotics, long term care social worker * medication reviewed as below * symptomatic treatment * continue vancomycin and zosyn * will need [facility] iv antibiotics * await chest xray today to see any improvement after diuresis * ID to decide final antibiotic and duration * may need IV access for watermelon inspector iv antibiotics * wound care. Review of Systems - Review of Systems ENT: negative: Ear Pain, Ear Discharge, Nose Pain, Nose Discharge, Nose Congestion, Mouth Pain, Mouth Swelling, Throat Pain, Throat Swelling, Other Respiratory: negative: Cough, Dry, Shortness of Breath, Hemoptysis, SOB with Excertion, Pleuritic Pain, Sputum, Wheezing Cardiovascular: negative: chest pain, palpitations, orthopnea, paroxysmal nocturnal dyspnea, edema, light headedness, other Gastrointestinal: negative: Nausea, Vomiting, Abdominal Pain, Diarrhea, Constipation, Melena, Hematochezia, Other Genitourinary: negative: Dysuria, Frequency, Incontinence, Hematuria, Retention , Other Musculoskeletal: negative: Neck Pain, Shoulder Pain, Arm Pain, Back Pain, Hand Pain, Leg Pain, Foot Pain, Other - Medications/Allergies Allergies/Adverse Reactions: Allergies Allergy/AdvReac Type Severity Reaction Status Date / Time No Known Allergies Allergy Verified 10/13/18 14:10 Medications: Current Medications Hydrocodone Bitart/Acetaminophen ([place] 5/325) 1 tab PO Q4H PRN PRN Reason: Mild-Moderate Pain (1-5) Hydrocodone Bitart/Acetaminophen ([place] 5/325) 2 tab PO Q4H PRN PRN Reason: Moderate to Severe Pain (6-10) Last Admin: 10/16/18 14:15 Dose: 2 tab Amlodipine Besylate (Norvasc) 5 mg PO DAILY [facility] Last Admin: 03/09/19 09:05 Dose: 5 mg Dextrose/Water (Dextrose 50%) 25 gm IVP PRN PRN PRN Reason: HYPOGLYCEMIA PROTOCOL Enoxaparin Sodium (Lovenox) 40 mg SC 0900 [facility] Last Admin: 10/17/18 09:06 Dose: 40 mg Famotidine (Pepcid) 20 mg PO BID [facility] Last Admin: 10/17/18 09:05 Dose: 20 mg Glucagon (Glucagon) 1 mg IM PRN PRN PRN Reason: HYPOGLYCEMIA PROTOCOL Guaifenesin/Dextromethorphan (Robitussin Dm) 15 ml PO Q4H PRN PRN Reason: Cough Last Admin: 10/15/18 22:08 Dose: 15 ml Dextrose/Water (D5w) 1,000 mls @ 0 mls/hr IV INF PRN PRN Reason: HYPOGLYCEMIA PROTOCOL Piperacillin Sod/Tazobactam (Sod 3.375 gm/ Sodium Chloride) 100 mls @ 200 mls/ hr IVPB 0300,0900,1500,2100 [facility] Last Admin: 10/17/18 09:07 Dose: 100 mls Vancomycin HCl 750 mg/ Sodium (Chloride) 250 mls @ 166.667 mls/hr IVPB 0200, 1400 [facility] Last Admin: 10/17/18 02:53 Dose: 250 mls Insulin Human Regular (Humulin R) 0 units SC .MODERATE SLIDING SC PRN; Protocol PRN Reason: MODERATE SLIDING SCALE Last Admin: 10/16/18 16:57 Dose: 4 unit Insulin Human Regular (Humulin R) 0 units SC .BEDTIME SLIDING SC PRN; Protocol PRN Reason: BEDTIME SLIDING SCALE Miscellaneous Medication (Pharmacy To Dose) 1 each IVPB PRN PRN PRN Reason: Pharmacy to dose Morphine Sulfate (Morphine) 2 mg SLOW IVP Q2H PRN PRN Reason: Mild-Moderate Pain (1-5) Last Admin: 10/14/18 06:06 Dose: 2 mg Morphine Sulfate (Morphine) 4 mg SLOW IVP Q2H PRN PRN Reason: Moderate to Severe Pain (6-10) Last Admin: 10/17/18 09:05 Dose: 4 mg Pantoprazole Sodium (Protonix) 40 mg IVP DAILY [facility] Last Admin: 10/17/18 09:08 Dose: Not Given Sodium Chloride (Normal Saline Pf) 10 ml FS PRN PRN PRN Reason: RECONSTITUTION Last Admin: 10/16/18 09:07 Dose: 10 ml
--- NOTE | 2018-10-17 13:10 | RAD ---
SINGLE VIEW OF THE CHEST: COMPARISON: None. HISTORY: Pulmonary nodules and edema. FINDINGS: A single view of the chest shows a normal-size cardiomediastinal silhouette. There is no evidence of consolidation, mass, or pleural effusion. IMPRESSION: No evidence of acute cardiopulmonary disease. POS: [facility]
[2018-10-17] MEDS: metroNIDAZOLE 250 MG TAB PO SCH (21:08)
--- NOTE | 2018-10-17 21:14 | PRG ---
DATE OF SERVICE: 10/17/2018 SUBJECTIVE: The patient is seen and examined with no new complaints. Noted with the following vital signs. OBJECTIVE: VITAL SIGNS: Afebrile, temperature 98.3, pulse 78, respiratory rate of 16, and O2 saturation of 98% with blood pressure 137/79. HEENT: Unremarkable. Moist oral mucosa. NECK: Supple. No conjunctival injection or icterus. CARDIOVASCULAR: First and second heart sounds were heard. RESPIRATORY: Clear to auscultation. DIGESTIVE: Revealed a benign abdomen with positive bowel sounds. EXTREMITIES: No peripheral edema. SKIN: No new gross rash. LYMPHATICS: No peripheral lymphadenopathy. LABORATORY INVESTIGATION: Showed a creatinine of 1.87 with a bicarb of 24. IMPRESSION: 1. Chronic kidney disease stage 3, seems to be stabilizing with a creatinine of 1.8. 2. Metabolic acidosis, resolved. PLAN: 1. Continue renal supportive measures. 2. Renally dose all medications for chronic kidney disease stage 3 level. 3. Avoid potentially nephrotoxic agents. 4. Further management to be dependent on the clinical course. Job ID: [id number]
[2018-10-17] MEDS: Insulin Regular 300 UNITS/3 ML VIAL SC PRN (22:00)
[2018-10-18 01:25] LABS: Vancomycin, Trough 20.7 ug/mL
[2018-10-18] MEDS: Vancomycin HCl 750 MG in Sodium Chloride 0.9% 250 ML 250 ML IVPB SCH ×2 (03:00→14:08)
[2018-10-18] MEDS: Loperamide HCl 2 MG CAP PO PRN ×2 (05:30→14:15)
[2018-10-18] MEDS: Morphine 4 MG/ML VIAL SLOW IVP PRN ×4 (05:30→22:05)
[2018-10-18 06:38] LABS: #Eosinphils 0.3 thou/uL (0.0-0.7); #Lymphocytes 1.7 thou/uL (1.20-3.40); #Monocytes 0.6 thou/uL (0.11-0.59); #Neutrophils 3.6 thou/uL (1.40-6.50); %Basophils 0.6 % (0.0-1.0); %Eosinophils 4.9 % (0.0-10.0); %Lymphocytes 27.6 % (21.0-51.0); %Monocytes 8.8 % (0.0-10.0); %Neutrophils 58.1 % (42.0-75.0); Hemoglobin 9.7 g/dL (14.0-18.0); Mean Corpuscular HGB CONC 32.8 g/dL (32.0-36.0); Mean Corpuscular Hemoglobin 27.3 pg (27.0-31.0); Mean Corpuscular Volume 83.4 fL (78.0-98.0); Mean Platelet Volume 7.2 fL (7.4-10.4); Platelet Count 396 thou/uL (130-400); RBC Distribution Width 11.7 % (11.5-14.5); Red Blood Cell (RBC) Count 3.54 mill/uL (4.70-6.10); White Blood Cell (WBC) Count 6.2 thou/uL (4.8-10.8)
[2018-10-18 06:52] LABS: ALT (SGPT) 9 U/L (8-55); AST (SGOT) 9 U/L (5-34); Albumin 3.2 g/dL (3.5-5.0); Alkaline Phosphatase 99 U/L (40-150); Bilirubin, Direct 0.1 mg/dL (0.1-0.3); Bilirubin, Total Less than 0.2 mg/dL (0.2-1.2); CRP (Inflammatory) 8.62 mg/dL (= or < 0.5); Protein, Total 7.5 g/dL (6.0-8.3)
[2018-10-18 06:56] LABS: Anion Gap 11 mmol/L (10-20); BUN (Urea Nitrogen) 19 mg/dL (8.4-25.7); Calc. Creatinine Clearance 60 mL/min (70-130); Calcium 9.1 mg/dL (7.8-10.44); Carbon Dioxide 26 mmol/L (22-29); Chloride 106 mmol/L (98-107); Estimated GFR-MDRD 40; Glucose 160 mg/dL (70-105); Potassium 4.3 mmol/L (3.5-5.1); Sodium 139 mmol/L (136-145)
[2018-10-18] MEDS: Saccharomyces boulardii 250 MG CAP PO SCH (08:22)
[2018-10-18] MEDS: Famotidine 20 MG TAB PO SCH ×2 (08:22→21:05)
[2018-10-18] MEDS: Amlodipine 5 MG TAB PO SCH (08:22)
[2018-10-18] MEDS: Enoxaparin Sodium 40 MG/0.4 ML SYRINGE SC SCH (08:22)
[2018-10-18] MEDS: metroNIDAZOLE 250 MG TAB PO SCH ×3 (08:22→21:05)
[2018-10-18] MEDS: Pantoprazole 40 MG VIAL IVP SCH (08:25)
--- NOTE | 2018-10-18 12:34 | PDOC.PN ---
- Subjective Encounter Start Date: 10/18/18 Encounter Start Time: 09:15 pt is doing well, he sis on room air, no pain - Objective Resuscitation Status - Order Detail: 10/15/18 17:07 Resuscitation Status Routine Resuscitation Status: FULL: Full Resuscitation Discussed with: Patient HILARIO Reviewed: Yes Vital Signs & Weight: Vital Signs (12 hours) Temp Pulse Resp BP Pulse Ox 10/18/18 08:22 84 10/18/18 08:00 96 10/18/18 07:30 97.6 F 84 16 146/71 H 96 10/18/18 04:25 97.3 F L 85 16 136/79 94 L Weight Admit Weight 192 lb Weight 197 lb I&O: 10/17/18 10/18/18 10/19/18 05:59 06:59 06:59 Intake Total 180 Output Total Balance 180 Result Diagrams: 10/18/18 05:26 10/18/18 05:26 Additional Labs: Accuchecks 10/18/18 10/18/18 10/17/18 11:50 05:47 20:29 POC Glucose 147 H 163 H 240 H 10/17/18 10/17/18 16:58 12:00 POC Glucose 190 H 181 H Radiology Reviewed by me: Yes (echo noted) EKG Reviewed by me: Yes Phys Exam - Physical Examination Constitutional: NAD HEENT: PERRLA, moist MMs, sclera anicteric Neck: no JVD, supple Respiratory: no wheezing, no rales, no rhonchi Cardiovascular: RRR, no significant murmur, no rub Gastrointestinal: soft, non-tender, no distention, positive bowel sounds right foot with dressing and wound vac+ Neurological: non-focal, normal sensation, moves all 4 limbs Lymphatic: no nodes Psychiatric: normal affect, A&O x 3 Skin: no rash, normal turgor Dx/Plan (1) Acute respiratory failure with hypoxemia Code(s): J96.01 - ACUTE RESPIRATORY FAILURE WITH HYPOXIA Status: Acute (2) Diabetic foot infection Code(s): E11.628 - TYPE 2 DIABETES MELLITUS WITH OTHER SKIN COMPLICATIONS; L08.9 - LOCAL INFECTION OF THE SKIN AND SUBCUTANEOUS TISSUE, UNSP Status: Acute Comment: S/P RAY AMPUTATION OF TOE (3) Osteomyelitis of foot, right, acute Code(s): M86.171 - OTHER ACUTE OSTEOMYELITIS, RIGHT ANKLE AND FOOT Status: Acute Comment: (4) CKD (chronic kidney disease), stage III Code(s): N18.3 - CHRONIC KIDNEY DISEASE, STAGE 3 (MODERATE) Status: Chronic Comment: (5) Chronic anemia Code(s): D64.9 - ANEMIA, UNSPECIFIED Status: Chronic Comment: (6) DM2 (diabetes mellitus, type 2) Status: Chronic Qualifiers: Diabetes mellitus complication status: with hyperglycemia Comment: (7) Polysubstance abuse Code(s): F19.10 - OTHER PSYCHOACTIVE SUBSTANCE ABUSE, UNCOMPLICATED Status: Chronic Comment: - Plan cont current plan of care, continue antibiotics, geriatric social worker * continue vancomycin and flagyl * will need outpt pt iv antibiotic arrangement. * tomorrow picc line * dc tele * transfer to medical * wound care Review of Systems - Review of Systems Eyes: negative: Conjunctivae Inflammation, Eyelid Inflammation, Redness, Other Respiratory: negative: Cough, Dry, Shortness of Breath, Hemoptysis, SOB with Excertion, Pleuritic Pain, Sputum, Wheezing Cardiovascular: negative: chest pain, palpitations, orthopnea, paroxysmal nocturnal dyspnea, edema, light headedness, other Gastrointestinal: negative: Nausea, Vomiting, Abdominal Pain, Diarrhea, Constipation, Melena, Hematochezia, Other Genitourinary: negative: Dysuria, Frequency, Incontinence, Hematuria, Retention , Other - Medications/Allergies Allergies/Adverse Reactions: Allergies Allergy/AdvReac Type Severity Reaction Status Date / Time No Known Allergies Allergy Verified 10/13/18 14:10 Medications: Current Medications Hydrocodone Bitart/Acetaminophen ([place] 5/325) 1 tab PO Q4H PRN PRN Reason: Mild-Moderate Pain (1-5) Hydrocodone Bitart/Acetaminophen ([place] 5/325) 2 tab PO Q4H PRN PRN Reason: Moderate to Severe Pain (6-10) Last Admin: 10/16/18 14:15 Dose: 2 tab Amlodipine Besylate (Norvasc) 5 mg PO DAILY [facility] Last Admin: 10/18/18 08:22 Dose: 5 mg Dextrose/Water (Dextrose 50%) 25 gm IVP PRN PRN PRN Reason: HYPOGLYCEMIA PROTOCOL Enoxaparin Sodium (Lovenox) 40 mg SC 0900 [facility] Last Admin: 10/18/18 08:22 Dose: 40 mg Famotidine (Pepcid) 20 mg PO BID [facility] Last Admin: 10/18/18 08:22 Dose: 20 mg Glucagon (Glucagon) 1 mg IM PRN PRN PRN Reason: HYPOGLYCEMIA PROTOCOL Guaifenesin/Dextromethorphan (Robitussin Dm) 15 ml PO Q4H PRN PRN Reason: Cough Last Admin: 10/15/18 22:08 Dose: 15 ml Dextrose/Water (D5w) 1,000 mls @ 0 mls/hr IV INF PRN PRN Reason: HYPOGLYCEMIA PROTOCOL Vancomycin HCl 750 mg/ Sodium (Chloride) 250 mls @ 166.667 mls/hr IVPB 0200, 1400 [facility] Last Admin: 10/18/18 03:00 Dose: 250 mls Insulin Human Regular (Humulin R) 0 units SC .MODERATE SLIDING SC PRN; Protocol PRN Reason: MODERATE SLIDING SCALE Last Admin: 10/16/18 16:57 Dose: 4 unit Insulin Human Regular (Humulin R) 0 units SC .BEDTIME SLIDING SC PRN; Protocol PRN Reason: BEDTIME SLIDING SCALE Last Admin: 10/17/18 22:00 Dose: 3 unit Loperamide HCl (Imodium) 2 mg PO PRN PRN PRN Reason: Diarrhea/Loose Stools Last Admin: 10/18/18 05:30 Dose: 2 mg Metronidazole (Flagyl) 250 mg PO TID [facility] Last Admin: 10/18/18 08:22 Dose: 250 mg Miscellaneous Medication (Pharmacy To Dose) 1 each IVPB PRN PRN PRN Reason: Pharmacy to dose Morphine Sulfate (Morphine) 2 mg SLOW IVP Q2H PRN PRN Reason: Mild-Moderate Pain (1-5) Last Admin: 10/14/18 06:06 Dose: 2 mg Morphine Sulfate (Morphine) 4 mg SLOW IVP Q2H PRN PRN Reason: Moderate to Severe Pain (6-10) Last Admin: 10/18/18 08:23 Dose: 4 mg Pantoprazole Sodium (Protonix) 40 mg IVP DAILY [facility] Last Admin: 10/18/18 08:25 Dose: Not Given Saccharomyces Boulardii (Florastor) 250 mg PO DAILY [facility] Last Admin: 10/18/18 08:22 Dose: 250 mg Sodium Chloride (Normal Saline Pf) 10 ml FS PRN PRN PRN Reason: RECONSTITUTION Last Admin: 10/16/18 09:07 Dose: 10 ml
[2018-10-18] MEDS: HYDROcodone/Acetaminophen 5/325 mg Tablet PO PRN ×2 (16:30→21:05)
--- NOTE | 2018-10-18 21:17 | PRG ---
DATE OF SERVICE: 10/18/2018 SUBJECTIVE: The patient is seen and examined with no new complaints. Noted with the following vital signs. OBJECTIVE: VITAL SIGNS: Afebrile, temperature 98, pulse 71, respiratory rate of 12, O2 saturation of 98%, and blood pressure 125/81. HEENT: Unremarkable. Moist oral mucosa. NECK: Supple. No conjunctival injection or icterus. CARDIOVASCULAR: First and second heart sounds were heard. RESPIRATORY: Clear to auscultation. DIGESTIVE: Revealed a benign abdomen with positive bowel sounds. EXTREMITIES: No peripheral edema. SKIN: No new gross rash. LYMPHATICS: No peripheral lymphadenopathy. LABORATORY INVESTIGATION: Showed a hemoglobin of 9.7, platelets . Chemistry showed a creatinine of 1.8 and BUN of 19. IMPRESSION: 1. Acute on chronic kidney disease, which seems to have resolved back to baseline. He seems the new baseline now with a creatinine of 1.8. 2. Chronic kidney disease, stage 3. PLAN: 1. We will continue current renal supportive measures. 2. Renally dose all medications and avoid potentially nephrotoxic agents. 3. Further management will be dependent on the clinical course. The metabolic acidosis in this patient has already resolved. Job ID: [id number]
[2018-10-19] MEDS: Vancomycin HCl 750 MG in Sodium Chloride 0.9% 250 ML 250 ML IVPB SCH ×2 (01:08→15:11)
[2018-10-19] MEDS: Morphine 4 MG/ML VIAL SLOW IVP PRN ×3 (06:15→20:22)
[2018-10-19] MEDS: Saccharomyces boulardii 250 MG CAP PO SCH (09:25)
[2018-10-19] MEDS: metroNIDAZOLE 250 MG TAB PO SCH ×3 (09:25→20:22)
[2018-10-19] MEDS: Amlodipine 5 MG TAB PO SCH (09:25)
[2018-10-19] MEDS: Enoxaparin Sodium 40 MG/0.4 ML SYRINGE SC SCH (09:26)
[2018-10-19] MEDS: Pantoprazole 40 MG VIAL IVP SCH (09:26)
[2018-10-19] MEDS: Famotidine 20 MG TAB PO SCH ×2 (09:26→21:52)
[2018-10-19] MEDS: HYDROcodone/Acetaminophen 5/325 mg Tablet PO PRN (09:29)
[2018-10-19 09:37] LABS: Anion Gap 12 mmol/L (10-20); BUN (Urea Nitrogen) 20 mg/dL (8.4-25.7); Calc. Creatinine Clearance 60 mL/min (70-130); Calcium 8.7 mg/dL (7.8-10.44); Carbon Dioxide 23 mmol/L (22-29); Chloride 107 mmol/L (98-107); Estimated GFR-MDRD 44; Glucose 139 mg/dL (70-105); Potassium 4.1 mmol/L (3.5-5.1); Sodium 138 mmol/L (136-145)
--- NOTE | 2018-10-19 11:28 | PDOC.PN ---
- Subjective Encounter Start Date: 10/19/18 Encounter Start Time: 09:50 Patient seen and examined. No new complaints. No overnight events - Objective Resuscitation Status - Order Detail: 10/15/18 17:07 Resuscitation Status Routine Resuscitation Status: FULL: Full Resuscitation Discussed with: [place] RICH Reviewed: Yes Vital Signs & Weight: Vital Signs (12 hours) Temp Pulse Resp BP BP Pulse Ox 10/19/18 09:25 75 157/87 H 10/19/18 08:00 100 10/19/18 07:22 98.0 F 75 16 157/87 H 100 Weight Admit Weight 192 lb Weight 180 lb 1.883 oz I&O: 10/18/18 10/19/18 10/20/18 06:59 06:59 06:59 Intake Total 1400 180 Output Total 750 Balance 650 180 Result Diagrams: 10/18/18 05:26 10/19/18 08:03 Additional Labs: Accuchecks 10/19/18 10/18/18 10/18/18 05:31 19:44 16:29 POC Glucose 127 H 185 H 158 H 10/18/18 11:50 POC Glucose 147 H Phys Exam - Physical Examination Constitutional: NAD HEENT: PERRLA, moist MMs, sclera anicteric Neck: no JVD, supple Respiratory: no wheezing, no rales, no rhonchi Cardiovascular: RRR, no significant murmur, no rub Gastrointestinal: soft, non-tender, no distention Musculoskeletal: no edema Neurological: non-focal, normal sensation Psychiatric: normal affect, A&O x 3 Skin: no rash, normal turgor Dx/Plan (1) Acute respiratory failure with hypoxemia Code(s): J96.01 - ACUTE RESPIRATORY FAILURE WITH HYPOXIA Status: Resolved (2) Diabetic foot infection Code(s): E11.628 - TYPE 2 DIABETES MELLITUS WITH OTHER SKIN COMPLICATIONS; L08.9 - LOCAL INFECTION OF THE SKIN AND SUBCUTANEOUS TISSUE, UNSP Status: Acute Comment: S/P RAY AMPUTATION OF TOE (3) Osteomyelitis of foot, right, acute Code(s): M86.171 - OTHER ACUTE OSTEOMYELITIS, RIGHT ANKLE AND FOOT Status: Acute Comment: (4) CKD (chronic kidney disease), stage III Code(s): N18.3 - CHRONIC KIDNEY DISEASE, STAGE 3 (MODERATE) Status: Chronic Comment: (5) Chronic anemia Code(s): D64.9 - ANEMIA, UNSPECIFIED Status: Chronic Comment: (6) DM2 (diabetes mellitus, type 2) Status: Chronic Qualifiers: Diabetes mellitus complication status: with hyperglycemia Comment: (7) Polysubstance abuse Code(s): F19.10 - OTHER PSYCHOACTIVE SUBSTANCE ABUSE, UNCOMPLICATED Status: Chronic Comment: - Plan cont current plan of care, plan discussed w/ family, continue antibiotics, social work program coordinator * continue vancomycin and flagyl * today PICC line * as pt is anxious with his previous experience with Picc line, will give ativan before procedure * case sealer working on arranging wound vac, and outpt iv antibiotics * medication reviewed as below * symptomatic treatment. Review of Systems - Review of Systems ENT: negative: Ear Pain, Ear Discharge, Nose Pain, Nose Discharge, Nose Congestion, Mouth Pain, Mouth Swelling, Throat Pain, Throat Swelling, Other Respiratory: negative: Cough, Dry, Shortness of Breath, Hemoptysis, SOB with Excertion, Pleuritic Pain, Sputum, Wheezing Cardiovascular: negative: chest pain, palpitations, orthopnea, paroxysmal nocturnal dyspnea, edema, light headedness, other Gastrointestinal: negative: Nausea, Vomiting, Abdominal Pain, Diarrhea, Constipation, Melena, Hematochezia, Other Genitourinary: negative: Dysuria, Frequency, Incontinence, Hematuria, Retention , Other Musculoskeletal: negative: Neck Pain, Shoulder Pain, Arm Pain, Back Pain, Hand Pain, Leg Pain, Foot Pain, Other - Medications/Allergies Allergies/Adverse Reactions: Allergies Allergy/AdvReac Type Severity Reaction Status Date / Time No Known Allergies Allergy Verified 10/13/18 14:10 Medications: Current Medications Hydrocodone Bitart/Acetaminophen ([place] 5/325) 1 tab PO Q4H PRN PRN Reason: Mild-Moderate Pain (1-5) Hydrocodone Bitart/Acetaminophen ([place] 5/325) 2 tab PO Q4H PRN PRN Reason: Moderate to Severe Pain (6-10) Last Admin: 10/19/18 09:29 Dose: 2 tab Amlodipine Besylate (Norvasc) 5 mg PO DAILY [facility] Last Admin: 10/19/18 09:25 Dose: 5 mg Dextrose/Water (Dextrose 50%) 25 gm IVP PRN PRN PRN Reason: HYPOGLYCEMIA PROTOCOL Enoxaparin Sodium (Lovenox) 40 mg SC 0900 [facility] Last Admin: 10/19/18 09:26 Dose: Not Given Famotidine (Pepcid) 20 mg PO BID [facility] Last Admin: 10/19/18 09:26 Dose: 20 mg Glucagon (Glucagon) 1 mg IM PRN PRN PRN Reason: HYPOGLYCEMIA PROTOCOL Guaifenesin/Dextromethorphan (Robitussin Dm) 15 ml PO Q4H PRN PRN Reason: Cough Last Admin: 10/15/18 22:08 Dose: 15 ml Dextrose/Water (D5w) 1,000 mls @ 0 mls/hr IV INF PRN PRN Reason: HYPOGLYCEMIA PROTOCOL Vancomycin HCl 750 mg/ Sodium (Chloride) 250 mls @ 166.667 mls/hr IVPB 0200, 1400 [facility] Last Admin: 10/19/18 01:08 Dose: 250 mls Insulin Human Regular (Humulin R) 0 units SC .MODERATE SLIDING SC PRN; Protocol PRN Reason: MODERATE SLIDING SCALE Last Admin: 10/16/18 16:57 Dose: 4 unit Insulin Human Regular (Humulin R) 0 units SC .BEDTIME SLIDING SC PRN; Protocol PRN Reason: BEDTIME SLIDING SCALE Last Admin: 10/17/18 22:00 Dose: 3 unit Loperamide HCl (Imodium) 2 mg PO PRN PRN PRN Reason: Diarrhea/Loose Stools Last Admin: 10/18/18 14:15 Dose: 2 mg Lorazepam (Ativan) 2 mg SLOW IVP [facility] Metronidazole (Flagyl) 250 mg PO TID [facility] Last Admin: 10/19/18 09:25 Dose: 250 mg Miscellaneous Medication (Pharmacy To Dose) 1 each IVPB PRN PRN PRN Reason: Pharmacy to dose Morphine Sulfate (Morphine) 2 mg SLOW IVP Q2H PRN PRN Reason: Mild-Moderate Pain (1-5) Last Admin: 10/19/18 06:15 Dose: 2 mg Morphine Sulfate (Morphine) 4 mg SLOW IVP Q2H PRN PRN Reason: Moderate to Severe Pain (6-10) Last Admin: 10/18/18 14:07 Dose: 4 mg Pantoprazole Sodium (Protonix) 40 mg IVP DAILY [facility] Last Admin: 10/19/18 09:26 Dose: Not Given Saccharomyces Boulardii (Florastor) 250 mg PO DAILY [facility] Last Admin: 10/19/18 09:25 Dose: 250 mg Sodium Chloride (Normal Saline Pf) 10 ml FS PRN PRN PRN Reason: RECONSTITUTION Last Admin: 10/16/18 09:07 Dose: 10 ml
[2018-10-19] MEDS ORDERED: Lorazepam 2 MG/ML VIAL SLOW IVP SCH (11:30)
[2018-10-19] MEDS ORDERED: Lorazepam 1 MG TAB PO SCH (11:45)
[2018-10-19] MEDS: Insulin Regular 300 UNITS/3 ML VIAL SC PRN ×2 (12:19→21:53)
[2018-10-19 13:08] LABS: Vancomycin, Trough 20.9 ug/mL
--- NOTE | 2018-10-19 16:08 | PRG ---
DATE OF SERVICE: 10/19/2018 SUBJECTIVE: The patient has much less dyspnea and less cough. No chest pain. No diarrhea. No genitourinary symptoms. OBJECTIVE: VITAL SIGNS: Temperature max 98, blood pressure 150/88, pulse 73, respirations 16, and O2 saturation 98%. SKIN: The right foot dressing in place with a negative pressure device. He has a PICC line inserted. HEENT: Ocular movements are conjugate. LUNGS: Clear with resolution of the previously noted wheezing and inspiratory crackles. HEART: S1 and S2, regular rate. ABDOMEN: Soft. Not distended. LABORATORY DATA: White cell count is at 6.2, hemoglobin 9.7, and platelets 396. Sodium 138 and creatinine 1.64. Microbiology with MRSA and group B Streptococcus. MRSA vancomycin XOCHILT less than 0.5. ASSESSMENT AND DISCUSSION: Type 2 diabetes with renal insufficiency, stage 3 to 4, recent decompensation due to congestive heart failure, which has responded to treatment, and right foot inflammatory process, for which he is currently receiving broad-spectrum antimicrobial coverage with vancomycin and Flagyl. PLAN: The plan is to continue vancomycin intravenously plus Flagyl. I am not sure he has insurance. If he does not, then we will have to switch him to daptomycin, so he can receive the treatment in the outpatient setting in the oncology infusion area. The target trough vancomycin will be 15 mcg with weekly labs including CBC, CRP, and comprehensive metabolic panel as well as vancomycin trough. The end date of therapy will be around November 29; after that, he probably should be transitioned to oral minocycline for a protracted period of time with continuation of wound care. Job ID: [id number]
--- NOTE | 2018-10-19 16:33 | SPC ---
ULTRASOUND GUIDED LEFT UPPER EXTREMITY PICC LINE PLACEMENT: Date: 10/19/18 INDICATION: Need for long-term IV antibiotics. TECHNIQUE: Informed consent was obtained. Preprocedure ultrasound images demonstrated a patent left basilic vein . The site overlying the left upper extremity was prepped and draped in the usual sterile fashion. Bu ffered 1% lidocaine was administered to the overlying subcutaneous tissues. Under ultrasound guidance , a micropuncture access kit was utilized to gain access to the left basilic vein. The guidewire was advanced to the level of the IVC. A 5 [place] catheter sheath was placed. A single lumen PICC line tri mmed at 46 cm was then guided over the wire and through the sheath. The sheath and wire were then re moved. Total fluoroscopic time was 1.5 minutes. Total exposure of 9319 mGy*cm^2. IMPRESSION: Successful ultrasound and fluoroscopic guided left upper extremity PICC line placement. POS: [facility]
--- NOTE | 2018-10-19 19:13 | PRG ---
DATE OF SERVICE: 10/19/2018 SUBJECTIVE: The patient is seen and examined, seems to be doing better, noted with the following vital signs. OBJECTIVE: VITAL SIGNS: Afebrile, temperature 98, pulse 73, respiratory rate of 16, O2 saturations of 98%, with blood pressure of 153/88. HEENT: Unremarkable. Moist oral mucosa. Neck was supple. No conjunctival injection or icterus. CARDIOVASCULAR: First and second heart sounds were heard. RESPIRATORY: Clear to auscultation. DIGESTIVE: Revealed a benign abdomen with positive bowel sounds. EXTREMITIES: No peripheral edema. SKIN: No new gross rash. LYMPHATICS: No peripheral lymphadenopathy. LABORATORY INVESTIGATION: Showed a creatinine down to 1.64. IMPRESSION: Acute on chronic kidney disease, which seems to be improving. PLAN: 1. We will continue current renal supportive measures. 2. Further management will be dependent on the clinical course. Job ID: [id number]
[2018-10-20] MEDS: Vancomycin HCl 750 MG in Sodium Chloride 0.9% 250 ML 250 ML IVPB SCH ×2 (03:28→14:13)
[2018-10-20 06:22] VITALS: BMI 22.5
[2018-10-20] MEDS: Morphine 4 MG/ML VIAL SLOW IVP PRN ×4 (06:50→19:11)
[2018-10-20] MEDS: Amlodipine 5 MG TAB PO SCH (09:09)
[2018-10-20] MEDS: Famotidine 20 MG TAB PO SCH ×2 (09:10→20:16)
[2018-10-20] MEDS: Enoxaparin Sodium 40 MG/0.4 ML SYRINGE SC SCH (09:10)
[2018-10-20] MEDS: Saccharomyces boulardii 250 MG CAP PO SCH (09:10)
[2018-10-20] MEDS: metroNIDAZOLE 250 MG TAB PO SCH ×3 (09:10→20:15)
--- NOTE | 2018-10-20 10:40 | PDOC.PN ---
- Subjective Encounter Start Date: 10/20/18 Encounter Start Time: 08:50 Patient seen and examined. No new complaints. No overnight events - Objective Resuscitation Status - Order Detail: 10/15/18 17:07 Resuscitation Status Routine Resuscitation Status: FULL: Full Resuscitation Discussed with: Patient HILARIO Reviewed: Yes Vital Signs & Weight: Vital Signs (12 hours) Temp Pulse Resp BP BP Pulse Ox 10/20/18 09:09 80 154/88 H 10/20/18 09:05 98 10/20/18 07:46 98.1 F 80 16 154/88 H 98 10/20/18 04:31 97.9 F 76 16 132/76 98 10/20/18 00:02 97.8 F 77 18 148/88 H 97 Weight Admit Weight 192 lb Weight 123 lb 6 oz I&O: 10/19/18 10/20/18 10/21/18 06:59 06:59 06:59 Intake Total 1400 420 Output Total 750 600 Balance 650 -180 Result Diagrams: 10/18/18 05:26 10/19/18 08:03 Additional Labs: Accuchecks 10/20/18 10/19/18 10/19/18 04:29 20:13 16:29 POC Glucose 133 H 226 H 121 H 10/19/18 11:38 POC Glucose 174 H Phys Exam - Physical Examination Constitutional: NAD HEENT: PERRLA, moist MMs, sclera anicteric Neck: no JVD, supple Respiratory: no wheezing, no rales, no rhonchi Cardiovascular: RRR, no significant murmur, no rub Gastrointestinal: soft, non-tender, no distention, positive bowel sounds Musculoskeletal: no edema, pulses present Neurological: non-focal, normal sensation, moves all 4 limbs Lymphatic: no nodes Psychiatric: normal affect, A&O x 3 Skin: no rash, normal turgor Dx/Plan (1) Acute respiratory failure with hypoxemia Code(s): J96.01 - ACUTE RESPIRATORY FAILURE WITH HYPOXIA Status: Resolved (2) Diabetic foot infection Code(s): E11.628 - TYPE 2 DIABETES MELLITUS WITH OTHER SKIN COMPLICATIONS; L08.9 - LOCAL INFECTION OF THE SKIN AND SUBCUTANEOUS TISSUE, UNSP Status: Acute Comment: S/P RAY AMPUTATION OF TOE (3) Osteomyelitis of foot, right, acute Code(s): M86.171 - OTHER ACUTE OSTEOMYELITIS, RIGHT ANKLE AND FOOT Status: Acute Comment: (4) CKD (chronic kidney disease), stage III Code(s): N18.3 - CHRONIC KIDNEY DISEASE, STAGE 3 (MODERATE) Status: Chronic Comment: (5) Chronic anemia Code(s): D64.9 - ANEMIA, UNSPECIFIED Status: Chronic Comment: (6) DM2 (diabetes mellitus, type 2) Status: Chronic Qualifiers: Diabetes mellitus complication status: with hyperglycemia Comment: (7) Polysubstance abuse Code(s): F19.10 - OTHER PSYCHOACTIVE SUBSTANCE ABUSE, UNCOMPLICATED Status: Chronic Comment: - Plan cont current plan of care, continue antibiotics, social work coordinator * medication reviewed as below * symptomatic treatment * once outpt wound care and antibiotics arranged will discharge. Review of Systems - Review of Systems ENT: negative: Ear Pain, Ear Discharge, Nose Pain, Nose Discharge, Nose Congestion, Mouth Pain, Mouth Swelling, Throat Pain, Throat Swelling, Other Respiratory: negative: Cough, Dry, Shortness of Breath, Hemoptysis, SOB with Excertion, Pleuritic Pain, Sputum, Wheezing Cardiovascular: negative: chest pain, palpitations, orthopnea, paroxysmal nocturnal dyspnea, edema, light headedness, other Gastrointestinal: negative: Nausea, Vomiting, Abdominal Pain, Diarrhea, Constipation, Melena, Hematochezia, Other Genitourinary: negative: Dysuria, Frequency, Incontinence, Hematuria, Retention , Other Musculoskeletal: negative: Neck Pain, Shoulder Pain, Arm Pain, Back Pain, Hand Pain, Leg Pain, Foot Pain, Other - Medications/Allergies Allergies/Adverse Reactions: Allergies Allergy/AdvReac Type Severity Reaction Status Date / Time No Known Allergies Allergy Verified 10/13/18 14:10 Medications: Current Medications Hydrocodone Bitart/Acetaminophen ([place] 5/325) 1 tab PO Q4H PRN PRN Reason: Mild-Moderate Pain (1-5) Hydrocodone Bitart/Acetaminophen ([place] 5/325) 2 tab PO Q4H PRN PRN Reason: Moderate to Severe Pain (6-10) Last Admin: 10/19/18 09:29 Dose: 2 tab Amlodipine Besylate (Norvasc) 5 mg PO DAILY [facility] Last Admin: 10/20/18 09:09 Dose: 5 mg Dextrose/Water (Dextrose 50%) 25 gm IVP PRN PRN PRN Reason: HYPOGLYCEMIA PROTOCOL Enoxaparin Sodium (Lovenox) 40 mg SC 0900 [facility] Last Admin: 10/20/18 09:10 Dose: 40 mg Famotidine (Pepcid) 20 mg PO BID [facility] Last Admin: 10/20/18 09:10 Dose: 20 mg Glucagon (Glucagon) 1 mg IM PRN PRN PRN Reason: HYPOGLYCEMIA PROTOCOL Guaifenesin/Dextromethorphan (Robitussin Dm) 15 ml PO Q4H PRN PRN Reason: Cough Last Admin: 10/15/18 22:08 Dose: 15 ml Dextrose/Water (D5w) 1,000 mls @ 0 mls/hr IV INF PRN PRN Reason: HYPOGLYCEMIA PROTOCOL Vancomycin HCl 750 mg/ Sodium (Chloride) 250 mls @ 166.667 mls/hr IVPB 0200, 1400 [facility] Last Admin: 10/20/18 03:28 Dose: 250 mls Insulin Human Regular (Humulin R) 0 units SC .MODERATE SLIDING SC PRN; Protocol PRN Reason: MODERATE SLIDING SCALE Last Admin: 10/19/18 12:19 Dose: 2 unit Insulin Human Regular (Humulin R) 0 units SC .BEDTIME SLIDING SC PRN; Protocol PRN Reason: BEDTIME SLIDING SCALE Last Admin: 10/19/18 21:53 Dose: 2 unit Loperamide HCl (Imodium) 2 mg PO PRN PRN PRN Reason: Diarrhea/Loose Stools Last Admin: 10/18/18 14:15 Dose: 2 mg Metronidazole (Flagyl) 250 mg PO TID [facility] Last Admin: 10/20/18 09:10 Dose: 250 mg Miscellaneous Medication (Pharmacy To Dose) 1 each IVPB PRN PRN PRN Reason: Pharmacy to dose Morphine Sulfate (Morphine) 2 mg SLOW IVP Q2H PRN PRN Reason: Mild-Moderate Pain (1-5) Last Admin: 10/19/18 06:15 Dose: 2 mg Morphine Sulfate (Morphine) 4 mg SLOW IVP Q2H PRN PRN Reason: Moderate to Severe Pain (6-10) Last Admin: 10/20/18 06:50 Dose: 4 mg Pantoprazole Sodium (Protonix) 40 mg PO DAILY [facility] Last Admin: 10/20/18 09:09 Dose: Not Given Saccharomyces Boulardii (Florastor) 250 mg PO DAILY [facility] Last Admin: 10/20/18 09:10 Dose: 250 mg Sodium Chloride (Normal Saline Pf) 10 ml FS PRN PRN PRN Reason: RECONSTITUTION Last Admin: 10/16/18 09:07 Dose: 10 ml
[2018-10-20] MEDS: Insulin Regular 300 UNITS/3 ML VIAL SC PRN ×2 (11:34→16:17)
--- NOTE | 2018-10-20 19:48 | PRG ---
DATE OF SERVICE: 10/20/2018 SUBJECTIVE: The patient is seen and examined, noted with the following vital signs. OBJECTIVE: VITAL SIGNS: Afebrile, temperature 98.1, pulse 79, respiratory rate of 16, O2 saturations are 98% with blood pressure 144/87. HEENT: Unremarkable. CARDIOVASCULAR SYSTEM: First and second heart sounds were heard. RESPIRATORY SYSTEM: Clear to auscultation. DIGESTIVE SYSTEM: Revealed a benign abdomen with positive bowel sounds. EXTREMITIES: No peripheral edema. SKIN EXAMINATION: No new gross rash. LYMPHATICS: No peripheral lymphadenopathy. IMPRESSION: Acute on chronic kidney disease, which seems to be much improved. PLAN: 1. Continue current renal supportive measures. 2. Outpatient Nephrology followup, status post discharge. Job ID: [id number]
[2018-10-20] MEDS: HYDROcodone/Acetaminophen 5/325 mg Tablet PO PRN (20:24)
[2018-10-21] MEDS: Vancomycin HCl 750 MG in Sodium Chloride 0.9% 250 ML 250 ML IVPB SCH ×2 (02:01→14:25)
[2018-10-21] MEDS: Morphine 4 MG/ML VIAL SLOW IVP PRN ×4 (03:05→14:47)
[2018-10-21] MEDS: HYDROcodone/Acetaminophen 5/325 mg Tablet PO PRN (05:51)
[2018-10-21] MEDS: Famotidine 20 MG TAB PO SCH (09:01)
[2018-10-21] MEDS: metroNIDAZOLE 250 MG TAB PO SCH ×2 (09:01→14:25)
[2018-10-21] MEDS: Amlodipine 5 MG TAB PO SCH (09:01)
[2018-10-21] MEDS: Saccharomyces boulardii 250 MG CAP PO SCH (09:02)
[2018-10-21] MEDS: Enoxaparin Sodium 40 MG/0.4 ML SYRINGE SC SCH (09:02)
--- NOTE | 2018-10-21 11:19 | PDOC.PN ---
- Subjective Encounter Start Date: 10/21/18 Encounter Start Time: 09:20 Patient seen and examined. No new complaints. No overnight events - Objective Resuscitation Status - Order Detail: 10/15/18 17:07 Resuscitation Status Routine Resuscitation Status: FULL: Full Resuscitation Discussed with: [place] RICH Reviewed: Yes Vital Signs & Weight: Vital Signs (12 hours) Temp Pulse Resp BP BP Pulse Ox 10/21/18 09:01 79 146/83 H 10/21/18 08:55 98 10/21/18 07:35 98.1 F 79 16 146/83 H 98 10/21/18 03:10 98.4 F 76 18 121/75 98 Weight Admit Weight 192 lb Weight 177 lb 1 oz I&O: 10/20/18 10/21/18 10/22/18 06:59 06:59 06:59 Intake Total 420 1990 Output Total 600 1000 Balance -180 990 Result Diagrams: 10/18/18 05:26 10/19/18 08:03 Additional Labs: Accuchecks 10/21/18 10/20/18 10/20/18 05:09 20:20 15:34 POC Glucose 144 H 154 H 173 H 10/20/18 11:15 POC Glucose 152 H Phys Exam - Physical Examination Constitutional: NAD HEENT: PERRLA, moist MMs, sclera anicteric Neck: no JVD, supple Respiratory: no wheezing, no rales, no rhonchi Cardiovascular: RRR, no significant murmur, no rub Gastrointestinal: soft, non-tender, no distention, positive bowel sounds Musculoskeletal: no edema, pulses present wound vac and dressing in place Neurological: non-focal, normal sensation Lymphatic: no nodes Psychiatric: normal affect, A&O x 3 Skin: no rash, normal turgor Dx/Plan (1) Acute respiratory failure with hypoxemia Code(s): J96.01 - ACUTE RESPIRATORY FAILURE WITH HYPOXIA Status: Resolved (2) Diabetic foot infection Code(s): E11.628 - TYPE 2 DIABETES MELLITUS WITH OTHER SKIN COMPLICATIONS; L08.9 - LOCAL INFECTION OF THE SKIN AND SUBCUTANEOUS TISSUE, UNSP Status: Acute Comment: S/P RAY AMPUTATION OF TOE (3) Osteomyelitis of foot, right, acute Code(s): M86.171 - OTHER ACUTE OSTEOMYELITIS, RIGHT ANKLE AND FOOT Status: Acute Comment: (4) CKD (chronic kidney disease), stage III Code(s): N18.3 - CHRONIC KIDNEY DISEASE, STAGE 3 (MODERATE) Status: Chronic Comment: (5) Chronic anemia Code(s): D64.9 - ANEMIA, UNSPECIFIED Status: Chronic Comment: (6) DM2 (diabetes mellitus, type 2) Status: Chronic Qualifiers: Diabetes mellitus complication status: with hyperglycemia Comment: (7) Polysubstance abuse Code(s): F19.10 - OTHER PSYCHOACTIVE SUBSTANCE ABUSE, UNCOMPLICATED Status: Chronic Comment: - Plan cont current plan of care, continue antibiotics, social media marketing specialist * currently on vancomycin and flagyl * await outpt wound care and antibiotics arrangement * medication reviewed as below * symptomatic treatment. Review of Systems - Review of Systems ENT: negative: Ear Pain, Ear Discharge, Nose Pain, Nose Discharge, Nose Congestion, Mouth Pain, Mouth Swelling, Throat Pain, Throat Swelling, Other Respiratory: negative: Cough, Dry, Shortness of Breath, Hemoptysis, SOB with Excertion, Pleuritic Pain, Sputum, Wheezing Cardiovascular: negative: chest pain, palpitations, orthopnea, paroxysmal nocturnal dyspnea, edema, light headedness, other Gastrointestinal: negative: Nausea, Vomiting, Abdominal Pain, Diarrhea, Constipation, Melena, Hematochezia, Other Genitourinary: negative: Dysuria, Frequency, Incontinence, Hematuria, Retention , Other Musculoskeletal: negative: Neck Pain, Shoulder Pain, Arm Pain, Back Pain, Hand Pain, Leg Pain, Foot Pain, Other Skin: negative: Rash, Lesions, Jim, Bruising, Other - Medications/Allergies Allergies/Adverse Reactions: Allergies Allergy/AdvReac Type Severity Reaction Status Date / Time No Known Allergies Allergy Verified 10/13/18 14:10 Medications: Current Medications Hydrocodone Bitart/Acetaminophen ([place] 5/325) 1 tab PO Q4H PRN PRN Reason: Mild-Moderate Pain (1-5) Hydrocodone Bitart/Acetaminophen ([place] 5/325) 2 tab PO Q4H PRN PRN Reason: Moderate to Severe Pain (6-10) Last Admin: 10/21/18 05:51 Dose: 2 tab Amlodipine Besylate (Norvasc) 5 mg PO DAILY [facility] Last Admin: 10/21/18 09:01 Dose: 5 mg Dextrose/Water (Dextrose 50%) 25 gm IVP PRN PRN PRN Reason: HYPOGLYCEMIA PROTOCOL Enoxaparin Sodium (Lovenox) 40 mg SC 0900 [facility] Last Admin: 10/21/18 09:02 Dose: 40 mg Famotidine (Pepcid) 20 mg PO BID [facility] Last Admin: 10/21/18 09:01 Dose: 20 mg Glucagon (Glucagon) 1 mg IM PRN PRN PRN Reason: HYPOGLYCEMIA PROTOCOL Guaifenesin/Dextromethorphan (Robitussin Dm) 15 ml PO Q4H PRN PRN Reason: Cough Last Admin: 10/15/18 22:08 Dose: 15 ml Dextrose/Water (D5w) 1,000 mls @ 0 mls/hr IV INF PRN PRN Reason: HYPOGLYCEMIA PROTOCOL Vancomycin HCl 750 mg/ Sodium (Chloride) 250 mls @ 166.667 mls/hr IVPB 0200, 1400 [facility] Last Admin: 10/21/18 02:01 Dose: 250 mls Insulin Human Regular (Humulin R) 0 units SC .MODERATE SLIDING SC PRN; Protocol PRN Reason: MODERATE SLIDING SCALE Last Admin: 10/20/18 16:17 Dose: 2 unit Insulin Human Regular (Humulin R) 0 units SC .BEDTIME SLIDING SC PRN; Protocol PRN Reason: BEDTIME SLIDING SCALE Last Admin: 10/19/18 21:53 Dose: 2 unit Loperamide HCl (Imodium) 2 mg PO PRN PRN PRN Reason: Diarrhea/Loose Stools Last Admin: 10/18/18 14:15 Dose: 2 mg Metronidazole (Flagyl) 250 mg PO TID [facility] Last Admin: 10/21/18 09:01 Dose: 250 mg Miscellaneous Medication (Pharmacy To Dose) 1 each IVPB PRN PRN PRN Reason: Pharmacy to dose Morphine Sulfate (Morphine) 2 mg SLOW IVP Q2H PRN PRN Reason: Mild-Moderate Pain (1-5) Last Admin: 10/19/18 06:15 Dose: 2 mg Morphine Sulfate (Morphine) 4 mg SLOW IVP Q2H PRN PRN Reason: Moderate to Severe Pain (6-10) Last Admin: 10/21/18 10:58 Dose: 4 mg Saccharomyces Boulardii (Florastor) 250 mg PO DAILY [facility] Last Admin: 10/21/18 09:02 Dose: 250 mg Sodium Chloride (Normal Saline Pf) 10 ml FS PRN PRN PRN Reason: RECONSTITUTION Last Admin: 10/16/18 09:07 Dose: 10 ml
[2018-10-21] MEDS: Insulin Regular 300 UNITS/3 ML VIAL SC PRN (11:39)
--- NOTE | 2018-10-21 14:38 | DIS ---
DATE OF ADMISSION: 10/13/2018 DATE OF DISCHARGE: 10/21/2018 PRIMARY CARE PHYSICIAN: Corin Sabillon. DISCHARGE DISPOSITION: Home. PRIMARY DISCHARGE DIAGNOSES: Diabetic foot infection and osteomyelitis of foot, status post acute respiratory failure due to pulmonary edema. SECONDARY DISCHARGE DIAGNOSES: History of polysubstance abuse, diabetes type 2, chronic kidney disease stage 3, and normocytic anemia. PRIMARY PROCEDURE/OPERATION: Dr. Conde did I & D and second and third toe ray amputation and drainage of diabetic foot abscess. PICC line placement on October 19, 2018. RADIOLOGICAL INVESTIGATION: Lower extremity MRI, chest x-ray, and echocardiography. SIGNIFICANT LABORATORY DATA: Hemoglobin 9.7 and creatinine 1.64. DISCHARGE MEDICATIONS: 1. Glipizide 5 mg p.o. daily. 2. Metformin 1 g p.o. b.i.d. 3. Amlodipine 5 mg daily. 4. Flagyl 250 mg p.o. t.i.d. 5. Florastor 250 mg daily. 6. Vancomycin 1.5 g IV daily. Duration of antibiotic therapy as per Dr. Duque until November 29, 2018. CONTRAINDICATION: None. CODE STATUS: Full code. INPATIENT CONSULTANTS: Dr. Elton Tipton, Sound Team. TEST RESULTS PENDING ON DISCHARGE: None. ALLERGIES: NO KNOWN DRUG ALLERGIES. DISCHARGE PLAN: Posthospital, the patient will follow up with Dr. Elton Tipton as instructed and primary care physician. HOSPITAL COURSE: A 53-year-old male with above-mentioned medical problem, who was initially admitted under general surgery for diabetic foot infection and osteomyelitis. The patient underwent incision and debridement of diabetic foot abscess and I & D done and second and third toe ray amputation. Postop surgery , the patient had acute pulmonary edema and acute respiratory failure and that is why Sound Team was consulted. The patient was transferred to telemetry floor, where he was treated with Lasix. Echocardiography was obtained, which was unremarkable. The patient had significant improvement in his repeat chest x-ray. He was transferred back to floor. Nephrology was following for renal failure. ID team was following for diabetic foot infection. General Surgery signed off after surgery and primary team was Sound. The patient was requiring IV antibiotic therapy and that is why with help of the rn field case manager, we arranged outpatient IV antibiotic therapy and wound care with wound VAC. The patient will continue antibiotic therapy until November 29, 2018. The patient is seen and examined at bedside today. Please see my progress note from today for further details. Job ID: [id number] MTDD
[2018-10-21 16:08] VITALS: BP 155/79; TEMP 98.2
== END 2018-10-21 16:35 | disposition home or self-care (01) | DRG 616 ==
LOC: SURG A 13:50 → 2NO 10-15 18:03 → T4-B 10-18 08:38 → 2NO 10-18 08:49 → T4-B 10-18 09:14
PROVIDERS: ADMIT Surgery; ATTEND Surgery
PROC: 0Y6M0ZB Detachment at Right Foot, Partial 2nd Ray, Open Approach (ICD-10-PCS; principal; 2018-10-14)
PROC: 0Y6M0ZC Detachment at Right Foot, Partial 3rd Ray, Open Approach (ICD-10-PCS; 2018-10-14)
PROC: 0Y9M0ZZ Drainage of Right Foot, Open Approach (ICD-10-PCS; 2018-10-14)
PROC: 06H033Z Insertion of Infusion Device into Inferior Vena Cava, Percutaneous Approach (ICD-10-PCS; 2018-10-19)
DX: E11.69 Type 2 diabetes mellitus with other specified complication (principal); J96.01 Acute respiratory failure with hypoxia; J81.0 Acute pulmonary edema; E87.2 Acidosis; M86.171 Other acute osteomyelitis, right ankle and foot; L02.611 Cutaneous abscess of right foot; N17.9 Acute kidney failure, unspecified; E11.22 Type 2 diabetes mellitus with diabetic chronic kidney disease; E11.42 Type 2 diabetes mellitus with diabetic polyneuropathy; E11.65 Type 2 diabetes mellitus with hyperglycemia; N18.3 Chronic kidney disease, stage 3 (moderate); D63.1 Anemia in chronic kidney disease; E11.621 Type 2 diabetes mellitus with foot ulcer; L97.509 Non-pressure chronic ulcer of other part of unspecified foot with unspecified severity; Z88.2 Allergy status to sulfonamides; Z79.84 Long term (current) use of oral hypoglycemic drugs; Z89.411 Acquired absence of right great toe
CPT/HCPCS: 36415; 36416; 36569; 71045; 80048; 80053; 80076; 80202; 81001; 82570; 83036; 83880; 84155; 84484; 85025; 86140; 87070; 87077; 87186; 87205; 87324; 87449; 88305; 88311; 93005; 93010; 93306; C1751; C9113; J1644; J1650; J1815; J1885; J1940; J2001; J2270; J2543; J2704; J3010; J3370; J7050

== ENCOUNTER 2022-03-21 10:29 | Day surgery (SDC) | payer OTHER ==
[2022-03-20 16:14] VITALS: BMI 28.3
[2022-03-21] MEDS ORDERED: Phenylephrine 2.5% Ophth Soln 5 ML BOT ONE (10:44)
[2022-03-21] MEDS ORDERED: Cyclopentolate 1% Opth Drop 2 ML BOT ONE (10:44)
[2022-03-21] MEDS ORDERED: EPINEPHrine 0.3 MG, Dextrose 50% 3 ML in Ophthalmic Irrigation Solution 500 ML IRR SCH (11:00)
[2022-03-21] MEDS ORDERED: Midazolam HCl 2 mg/2 ml Vial ONE (11:55)
[2022-03-21] MEDS ORDERED: Famotidine/PF 20 mg/2ml Vial ONE (11:56)
[2022-03-21] MEDS ORDERED: fentaNYL Citrate/PF 100 MCG/2 ML SYRINGE ONE (11:56)
[2022-03-21] MEDS ORDERED: ePHEDrine 50 MG/ML VIAL ONE (12:03)
[2022-03-21] MEDS ORDERED: PROPOFOL 200 MG/20 ML VIAL ONE (12:03)
[2022-03-21] MEDS ORDERED: Maxitrol 0.1% Opth Oint 3.5 GM TUBE ONE (12:03)
[2022-03-21] MEDS ORDERED: Bupivacaine 0.75% 10 ML VIAL ONE (12:03)
[2022-03-21] MEDS ORDERED: Lidocaine 1% PF 5 ML VIAL ONE ×2 (12:03)
[2022-03-21] MEDS ORDERED: Ondansetron PF 4 MG/2 ML Vial ONE (12:03)
[2022-03-21] MEDS ORDERED: Triamcinolone 40 MG/ML VIAL ONE (12:03)
[2022-03-21] MEDS ORDERED: Lidocaine 4% PF 5 ML AMP ONE (12:03)
[2022-03-21] MEDS ORDERED: Dextrose 50% Abboject 50 ML SYRINGE ONE (12:03)
[2022-03-21] MEDS ORDERED: CEFAZOLIN 1 GM VIAL ONE (12:03)
[2022-03-21] MEDS ORDERED: Phenylephrine 10 MG/ML VIAL ONE (12:03)
[2022-03-21] MEDS ORDERED: Metoclopramide HCl 10 MG/2 ML VIAL ONE (12:03)
== END 2022-03-21 14:19 | disposition home or self-care (01) ==
LOC: SDC 10:29
PROVIDERS: ATTEND Ophthalmology Retina Specialist
PROC: 08T53ZZ Resection of Left Vitreous, Percutaneous Approach (ICD-10-PCS; principal; 2022-03-21)
PROC: 08QF3ZZ Repair Left Retina, Percutaneous Approach (ICD-10-PCS; 2022-03-21)
PROC: 08133J4 Bypass Left Anterior Chamber to Sclera with Synthetic Substitute, Percutaneous Approach (ICD-10-PCS; 2022-03-21)
DX: H40.2220 Chronic angle-closure glaucoma, left eye, stage unspecified (principal); H43.12 Vitreous hemorrhage, left eye; E11.9 Type 2 diabetes mellitus without complications; Z79.01 Long term (current) use of anticoagulants; Z79.82 Long term (current) use of aspirin; Z79.84 Long term (current) use of oral hypoglycemic drugs
CPT/HCPCS: 66180; 67040; C1762; J0171; J0690; J2250; J2370; J2405; J2704; J2765; J3301; J3490; J7999; S0028